=== PATIENT | male | born 1960 | race Caucasian/White ===

== ENCOUNTER 2016-09-10 08:04 | Day surgery (SDC) | payer BC ==
[~2016-09-10 08:04] MED LIST: Buffered Lidocaine 1% SYR 3ML* 3 ML/SYR SYRINGE INTRADERM ONE; Famotidine IV* 10 MG/ML 2 ML (20 mg) IV ONE; Morphine INJ* 2 MG/ML 1 ML CARPUJECT IV PRN; PROCHLORPERAZINE INJ 5 MG/ML 2 ML VIAL IV PRN; fentaNYL* 50 MCG/ML 2 ML VIAL (100 MCG VIAL) IV PRN; oxyCODONE/Acetamin 5/325 MG* TAB PO PRN
[2016-09-10] MEDS ORDERED: KETAMINE HCL* 50 MG/ML 10 ML VIAL ONE (08:53)
[2016-09-10] MEDS ORDERED: Midazolam* 1 MG/ML 5 ML VIAL (5 MG) ONE (08:53)
[2016-09-10] MEDS ORDERED: fentaNYL* 50 MCG/ML 2 ML VIAL (100 MCG VIAL) ONE (08:53)
[2016-09-10] MEDS ORDERED: Bupivacaine 0.25% SDV* 30 ML ONE (09:34)
[2016-09-10] MEDS ORDERED: Dexamethasone IV* 4 MG/ML 1 ML (4 MG) ONE (10:03)
[2016-09-10] MEDS ORDERED: Propofol* 10 MG/ML 20 ML BTL IV PUSH ONE (10:03)
[2016-09-10] MEDS ORDERED: Lidocaine 2% PF * 5 ML VIAL ONE (10:03)
[2016-09-10 10:51] VITALS: BP 125/70
[2016-09-10] MEDS ORDERED: Morphine INJ* 10 MG/ML 1 ML CARPUJECT ONE (11:08)
--- NOTE | 2016-09-11 01:43 | OP ---
DATE OF ADMISSION: 09/10/16 [facility] DATE OF : 56 SURGEON: Zhang Irvin MD. EQUIPMENT ASSOCIATE: CLINT Hallman. ANESTHESIOLOGIST: Dr. Gonzales. ANESTHESIA: Local, MAC. PRE-OP DIAGNOSIS: Right carpal tunnel syndrome. POST-OP DIAGNOSIS: Right carpal tunnel syndrome. OPERATIVE PROCEDURE: Right open carpal tunnel release. INDICATIONS: Cuong is a 56-year-old male. I had done his left side about 4 months ago and that has done very well. We talked about risks and benefits and he wished to proceed with right open carpal tunnel release. EBL: 5 mL. COMPLICATIONS: None. FINDINGS: As expected. DESCRIPTION OF PROCEDURE: Cuong was seen in the preoperative holding area and the correct side, site, and procedure were identified. We came back to the operating room where he got some anesthesia and then I injected the operative area with 0.25% Marcaine. The arm was prepped and draped in the usual fashion. A time-out was performed. The arm was exsanguinated and the tourniquet inflated to 150 mmHg. I then used the 15 blade to make a longitudinal incision about 2 to 3 cm in length along the standard location of the carpal tunnel release incision. Dissection was carried down sharply through the subcutaneous tissue and palmar fascia. I then used the tenotomy scissors to create a subcutaneous tunnel superficial to the distal antebrachial fascia just ulnar to the palmaris longus tendon. I then used the 15 blade to release the transverse carpal ligament just off the radial aspect of the hook of the hamate. This was done from distal to proximal. When I got to the level of the proximal aspect of the incision, I placed a skin retractor and retracted the skin and subcutaneous tissues superficially. I then used the tenotomy scissors to release the rest of the ligament and the distal antebrachial fascia to the level of about 4 or 5 cm proximal to the volar wrist flexion crease. I then checked the decompression proximally and distally. Everything looked very nice and decompressed. There were a few fibers distally that I clipped with the tenotomy scissors and everything was wide open. At this point, I then irrigated the wound and the skin was closed with some 4-0 nylon suture. The wound was dressed with Xeroform, 4 x 4's, sterile Webril, and an [place] wrap. He was then woken up and taken to the recovery room in stable condition [id number]/[facility] #: [id number] JESSICA
== END 2016-09-10 11:00 | disposition home or self-care (01) ==
LOC: OREAST 08:04
PROVIDERS: ATTEND Orthopaedic Surgery Hand Surgery
DX: G56.01 Carpal tunnel syndrome, right upper limb (principal); Z87.891 Personal history of nicotine dependence
CPT/HCPCS: J1100; J2250; J2270; J2704; J3010

== ENCOUNTER 2017-03-19 05:46 | Day surgery (SDC) | payer BC ==
--- NOTE | 2017-03-08 12:46 | HP ---
HISTORY AND PHYSICAL: DATE OF SURGERY: 03/19/17 DATE OF OFFICE VISIT: 03/06/17 SURGEON: Michelle Cates MD* (DICTATED BY CLINT DOHERTY) PROCEDURE: Right knee arthroscopy with partial medial meniscectomy, possible chondroplasty, possible synovectomy. CHIEF COMPLAINT: Right knee pain. HISTORY OF PRESENT ILLNESS: Mr. Tillman is a 56-year-old gentleman with complaints of right knee pain secondary to medial meniscus tear. He has failed conservative treatment. He has elected to proceed with right knee arthroscopy with partial medial meniscectomy. The surgery is scheduled for 03/19/17. PAST MEDICAL HISTORY: Psoriasis. PAST SURGICAL HISTORY: Ganglion cyst removal, bilateral carpal tunnel release, 5 hernia repairs, left testicle removal, cryoablation of the genitofemoral nerve , appendectomy, vasectomy. CURRENT MEDICATIONS: 1. Trazodone. 2. [place]. 3. Motrin. 4. Fluocinonide. 5. Clomid. 6. Tylenol. 7. Multivitamin. 8. Glucosamine. 9. Fish oil bases. ALLERGIES: NIACIN. FAMILY HISTORY: Cancer, diabetes, heart disease. SOCIAL HISTORY: A 56-year-old gentleman lives with his . He does not smoke , use drugs or alcohol. REVIEW OF SYSTEMS: A complete 14-point review of systems was reviewed with the patient and was positive for history of hepatitis C in the past. He was treated with interferon, he has been negative for 10 years. He denies any anesthesia problems, history of DVT, or PE. PHYSICAL EXAMINATION GENERAL: Well developed, well nourished, in no acute distress. VITAL SIGNS: He stands 5 feet 9 inches tall, weighs 195 pounds. Blood pressure 130/74, heart rate 74. HEENT: Normocephalic, atraumatic. NECK: Supple. No palpable lymph nodes. PULMONARY: Lungs are clear to auscultation bilaterally. CARDIAC: Regular rate and rhythm. ABDOMEN: Soft, nontender, and nondistended. MUSCULOSKELETAL: Right lower extremity, the skin is intact. There are no open wounds or abrasions. He has some tenderness over the medial joint line. Full range of motion of the right knee, 2+ dorsalis pedis pulses and intact sensation. NEUROLOGIC: Alert and oriented x3. Cranial nerves II through XII are intact. ASSESSMENT AND PLAN: Mr. Tillman is a 56-year-old gentleman who complains of right knee pain. He has failed conservative management. He has elected to proceed with right knee arthroscopy with partial medial meniscectomy, possible chondroplasty, possible synovectomy. The surgery scheduled for 03/19/[address] Cates discussed the risks and benefits of the surgery at today' s visit and all of his questions were answered. He will follow up 10 to 14 days after the surgery. CLINT DOHERTY [id number]/[facility] #: [id number] JESSICA
[~2017-03-19 05:46] MED LIST changes: +Buffered Lidocaine 0.9% SYRIN* 5 ML/SYR SYRINGE INTRADERM ONE; -Buffered Lidocaine 1% SYR 3ML* 3 ML/SYR SYRINGE INTRADERM ONE; -Famotidine IV* 10 MG/ML 2 ML (20 mg) IV ONE; -Morphine INJ* 2 MG/ML 1 ML CARPUJECT IV PRN; -PROCHLORPERAZINE INJ 5 MG/ML 2 ML VIAL IV PRN; -fentaNYL* 50 MCG/ML 2 ML VIAL (100 MCG VIAL) IV PRN; -oxyCODONE/Acetamin 5/325 MG* TAB PO PRN
[2017-03-19] MEDS ORDERED: ceFAZolin 2 GM PREMIX (*) 50 ML IVPB ONE (05:55)
[2017-03-19] MEDS ORDERED: Buffered Lidocaine 0.9% SYRIN* 5 ML/SYR SYRINGE ONE (05:55)
[2017-03-19] MEDS ORDERED: Famotidine IV* 10 MG/ML 2 ML (20 mg) ONE (05:55)
[2017-03-19] MEDS ORDERED: Famotidine IV* 10 MG/ML 2 ML (20 mg) IV ONE (06:00)
[2017-03-19] MEDS ORDERED: Bupivacaine 0.5% SDV PF* 30 ML VIAL ONE (06:48)
[2017-03-19] MEDS ORDERED: methylPREDNISolone ACETATE 80* 80 MG/ML 1 ML VIAL ONE (06:48)
[2017-03-19] MEDS ORDERED: EPINEPHrine AMP 1 MG/ML ONE (06:48)
[2017-03-19] MEDS ORDERED: Propofol* 10 MG/ML 20 ML BTL IV PUSH ONE (07:19)
[2017-03-19] MEDS ORDERED: Midazolam* 1 MG/ML 5 ML VIAL (5 MG) ONE (07:19)
[2017-03-19] MEDS ORDERED: fentaNYL* 50 MCG/ML 2 ML VIAL (100 MCG VIAL) ONE (07:19)
[2017-03-19] MEDS ORDERED: Ketorolac INJ* 30 MG/ML 1 ML VIAL ONE (07:19)
[2017-03-19] MEDS ORDERED: Lidocaine 2% PF * 5 ML VIAL ONE (07:19)
[2017-03-19] MEDS ORDERED: Ondansetron INJ* 2 MG/ML VIAL ONE (07:19)
[2017-03-19] MEDS ORDERED: DiMENhydriNATE IV* 50 MG/ML VIAL IV PUSH PRN (07:53)
[2017-03-19] MEDS ORDERED: Acetaminophen TAB* 325 MG PO PRN (07:53)
[2017-03-19] MEDS ORDERED: HYDROmorphone INJ* 1 MG/ML CARPUJECT SYRINGE ONE ×2 (08:34→09:29)
[2017-03-19] MEDS ORDERED: oxyCODONE TAB* 5 MG TAB ONE ×2 (08:34→08:49)
[2017-03-19] MEDS ORDERED: Acetaminophen TAB* 325 MG ONE (08:35)
[2017-03-19] MEDS: HYDROmorphone INJ* 1 MG/ML CARPUJECT SYRINGE IV PRN ×5 (08:36→09:08)
[2017-03-19] MEDS: oxyCODONE TAB* 5 MG TAB PO PRN ×2 (08:37→08:49)
[2017-03-19] MEDS ORDERED: HYDROmorphone INJ* 1 MG/ML CARPUJECT SYRINGE IV SLOW PU PRN (09:11)
[2017-03-19 10:03] VITALS: BP 111/84
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
== END 2017-03-19 10:24 | disposition home or self-care (01) ==
LOC: OR 05:46
PROVIDERS: ATTEND Orthopaedic Surgery Adult Reconstructive Orthopaedic Surgery
DX: M23.203 Derangement of unspecified medial meniscus due to old tear or injury, right knee (principal); M67.51 Plica syndrome, right knee; M17.9 Osteoarthritis of knee, unspecified; Z87.891 Personal history of nicotine dependence
CPT/HCPCS: A9270-GY; J0171; J0690; J1040; J1170; J1885; J2250; J2405; J2704; J3010

== ENCOUNTER 2017-05-11 10:01 | Emergency (ER) | payer BC | END 2017-05-11 11:13 | disposition left against medical advice (07) | LOC: UCCORT 10:01 | DX: H57.8 Other specified disorders of eye and adnexa (principal); Z53.21 Procedure and treatment not carried out due to patient leaving prior to being seen by health care provider ==

== ENCOUNTER 2017-05-12 10:11 | Emergency (ER) | payer BC ==
[2017-05-12 12:02] VITALS: BP 138/66
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
== END 2017-05-12 12:31 | disposition home or self-care (01) ==
LOC: UCCORT 10:11
DX: H05.012 Cellulitis of left orbit (principal); Z87.891 Personal history of nicotine dependence
CPT/HCPCS: 99212; G0463

== ENCOUNTER 2017-07-15 10:36 | Day surgery (SDC) | payer BC ==
[~2017-07-15 10:36] MED LIST changes: +Bupivacaine 0.25% SDV* 30 ML ONE
[2017-07-15] MEDS ORDERED: Midazolam* 1 MG/ML 10 ML VIAL (10 MG) ONE (11:50)
[2017-07-15] MEDS ORDERED: fentaNYL* 50 MCG/ML 2 ML VIAL (100 MCG VIAL) ONE ×2 (12:01→12:18)
[2017-07-15] MEDS ORDERED: Ketorolac INJ* 30 MG/ML 1 ML VIAL ONE (12:21)
[2017-07-15] MEDS ORDERED: oxyCODONE TAB* 5 MG TAB PO PRN (12:24)
[2017-07-15] MEDS ORDERED: HYDROcodone/ACETAMIN 5-325 MG* 1 TAB PO PRN (12:24)
[2017-07-15] MEDS ORDERED: Ondansetron INJ* 2 MG/ML VIAL IV PRN (12:24)
[2017-07-15] MEDS ORDERED: Naloxone* 0.4 MG/ML 1 ML VIAL IV PRN (12:24)
[2017-07-15 13:10] VITALS: BP 119/76
--- NOTE | 2017-07-16 14:56 | OP ---
DATE OF OPERATION: 07/15/17 - [facility] DATE OF : 56 SURGEON: Zhang Irvin MD SET UP / OPERATOR: CLINT Leal ANESTHESIOLOGIST: Dr. Kendrick. ANESTHESIA: Local MAC. PRE-OP DIAGNOSIS: Right trigger thumb with large A1 andreea tendon sheath nodule. POST-OP DIAGNOSIS: Right trigger thumb with large A1 andreea tendon sheath nodule. OPERATIVE PROCEDURE: 1. Release of right trigger thumb A1 andreea. 2. Excision of right thumb A1 andreea tendon sheath mass. INDICATIONS: Cuong has had really severe trigger thumb. I had injected it, it did not get completely better, although it did improve. I had talked about risks and benefits. He wanted to have the surgery performed. ESTIMATED BLOOD LOSS: 2 mL. COMPLICATIONS: None. FINDINGS: Large nodular mass coming off of the A1 andreea. DESCRIPTION OF PROCEDURE: Cuong was seen in the preoperative holding area. The correct side, site and procedure were identified. We came back to the operating room. He got anesthesia and I infiltrated the operative area with 0.25% plain Marcaine. The arm was then prepped and draped in the usual fashion and a time-out performed. I made a 1 cm transverse incision in the MP joint flexion crease. Dissection was carried down bluntly. The digital nerves were retracted. The lesion on the tendon sheath was quite large and very visible protruding out from the A1 andreea. This was ellipsed out with a knife and handed off as a specimen. At this point, the thumb was still triggering when I took the knife and I released the remainder of the A1 andreea longitudinally. The release was continued distally and proximally with the tenotomy scissors, taking great care to protect the digital nerves. Once the release was completed, Cuong was awake enough that I had him flex and extend the IP joint multiple times. There was absolutely no triggering. We irrigated out the wound. Skin was closed with 4- 0 nylon suture. Wound was dressed with Xeroform, 4x4s, sterile Webril, and an [place] wrap. Tourniquet was deflated, the hand pinked up immediately. He was taken to the recovery room in stable condition. [id number]/[facility] #: [id number] [facility]
== END 2017-07-15 13:26 | disposition home or self-care (01) ==
LOC: OR 10:36
PROVIDERS: ATTEND Orthopaedic Surgery Hand Surgery
DX: M65.311 Trigger thumb, right thumb (principal); M67.441 Ganglion, right hand; B19.20 Unspecified viral hepatitis C without hepatic coma; F10.20 Alcohol dependence, uncomplicated; F19.10 Other psychoactive substance abuse, uncomplicated
CPT/HCPCS: 88304; J1885; J2250; J3010

== ENCOUNTER 2017-08-10 14:54 | Emergency (ER) | payer BC ==
--- OUTSIDE RECORDS SUMMARY | 2017-08-10 15:34 | XMS REPORT ---
:1960 External Reference #:[id number] Author Organization [facility] Address [address] [address] Phone [phone] Care Team Providers Name Role Phone Shira Jenkins MD Primary Care Physician Unavailable Payers Type Date Identification Numbers Payment Provider Subscriber Commercial Effective: Policy Number: LIBRA Heraclio Zhu 2013 [id number] PayID: [id number] [place] [id number] [place] [address] Medigap Part B Effective: 2010 Policy Number: LIBRA Heraclio Zhu [id number] Expires: 2011 PayID: [id number] [place] [id number] [place] [address] Medigap Part B Expires: 2010 Policy Number: Dirk Andrews Ppanne marie Zhu [id number] PayID: [id number] [facility] [address] [place] [address] Problems Date Description Provider Status Onset: 05/26/2010 Psoriasis Shira Jenkins M.D. Active Onset: 05/16/2016 Ganglion of hand Zhang Irvin MD Active Onset: 05/16/2016 Carpal tunnel syndrome of left wrist Zhang Irvin MD Active Onset: 08/21/2016 Bilateral carpal tunnel syndrome Zhang Irvin MD Active Onset: 03/06/2017 Current tear of medial cartilage Michelle Cates M.D. Active AND/OR meniscus of knee Onset: 07/08/2017 Localized, primary osteoarthritis Michelle Cates M.D. Active Onset: 04/30/2017 Snapping thumb syndrome Zhang Irvin MD Active Family History Date Family Member(s) Problem(s) Comments General Diabetes General Cancer General Stroke General Heart Disease Onset: (age 79 Father [place] living at 82, still Years) working : (age 57 Mother due to [place] sudden ; smoker Years) Siblings 3 Second Brother Coronary Artery Disease stents at age 49 (CAD) Paternal Grandfather due to () Pancreatic Cancer Maternal Grandmother due to Heart () - onset age Disease 38, multiple [place], PPM, lived to be 97, breast CA stomach CA Social History Type Date Description Comments Marital Status Lives With Occupation [employer], currently semi retired Cigarette Use Former Cigarette Smoker quit 2012, >30 pack year ETOH Use Has consumed alcohol in the quit in 1986 past Smoking Patient is a former smoker Recreational Drug Use Denies Drug Use 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 Rehab in 2012 Exercise Type/Frequency Exercises regularly Allergies, Adverse Reactions, Alerts Date Description Reaction Status Severity Comments 08/12/2009 Niaspan HIVES active Moderate 07/03/2010 Lanolin severe fatigue active Moderate Medications Medication Date Status Form Strength Qnty SIG Indications Ordering Provider Tramadol 07/15 Active Tablets 37.5-325m 30tab 1-2 tab by Zhang Hydrochloride/Ac /2017 g s mouth every MD Brandee etaminophen 4-6 hours as needed Motrin 07/03 Active Tablets 200mg taking 6-8 per day Alix Jenkins Tylenol Active Tablets 325mg prn Unknown / Clomid Active Tablets 50mg 1/2 tablet Joe, / daily MD Rolan Fluocinonide Active Cream 0.05% 30uni twice a day Unknown ts as needed rash Prilosec OTC 05/13 Hx Tablets 20mg 1 by mouth every day Paige Jenkins M.D. 06/24 Ventolin HFA 04/25 Hx Aerosol 108(90Bas 24gm 1 to 2 e) inhalations Varn, N.P. - mcg/Act every 4 06/24 hours needed Medrol 04/25 Hx TBPK 4mg 21uni 6 by mouth ts day 1, 5 by Varn, N.P. - mouth day 2, 05/01 4 by mouth /2016 day 3, 3 by mouth day 4, 2 by mouth day 5, 1 by mouth day 6 Oxycodone-Acetam 03/19 Hx Tablets 5-325mg 30tab 1 tabs by Michelle jeffreyphen s mouth every Darryn, - 4 hours as M.D. 05/12 needed for pain Hydrocodone-Acet 02/22 Hx Tablets 5-325mg 30tab 1-2 by mouth M25.561 Shira aminophen s 4 times a Cotton, - day as M.D. 05/12 needed Trazodone HCL 02/22 Hx Tablets 50mg 30tab 1/2-1 tablet M25.561 Shira s once daily Cotton, - at bedtime M.D. 06/27 Tramadol 09/10 Hx Tablets 37.5-325m 22tab take 1 - 2 Zhang Varghese/ g s pills by MD Brandee etaminophen - mouth every 02/19 4 - 6 hours as needed for pain. Ultracet 05/24 Hx Tablets 37.5-325m 10tab 1 - 2 by Zhang g s mouth q4-6hr MD Brandee - as needed 08/20 pain Morphine Sulfate 12/13 Hx Tablets 15mg one every 4 Shira hours Gregory, - M.D. 10/21 Cyclobenzaprine 08/24 Hx Tablets 10mg 30tab 1 tablet Yvonne HCL s three times Ivon, - a day as M.D., FACP 12/11 needed Physical Therapy 08/24 Hx lbp Yvonne Ivon, - M.Akbar, FACP 12/13 Zithromax Z-Vijay 08/21 Hx Tablets 250mg 1Pack two po Shira initially Cotton, - then one po M.D. 08/31 daily Robitussin ac 08/21 Hx Solution 120cc 1 to 2 tsp Shira every 4 Cotton, - hours as M.D. 12/13 needed for cough Dovonex Hx Cream 0.005% 60gm apply to Shira /0000 affected Cotton, - area twice M.D. 09/23 daily Oxycodone HCL Hx Tablets 5mg 50tab 1 Tablet Unknown /0000 s Every 4 - Hours as 07/03 Clonidine HCL Hx Tablets 0.1mg 60tab 1 po bid Unknown /0000 s - 09/23 Serophene Hx Tablets 50mg 1/2 tab Unknown /0000 daily - 11/29 Bactrim Hx Tablets take 1 Unknown /0000 tablet by - mouth bid 06/27 Medications Administered in Office Medication Date Status Form Strength Qnty SIG Indications Ordering Provider Synvisc Or Administered Injection Michelle Synvisc-One Jose Luis Cates M.D. Injection 1 MG Synvisc Or Administered Injection Michelle Synvisc-One Jose Luis Cates M.D. Injection 1 MG Synvisc Or Administered Injection Michelle Synvisc-One 018 Alix Cates Injection 1 MG Celestone 3 mg Administered Injection Zhang and 3mg 017 MD Brandee Celestone 3 mg Administered Injection Urszula and 3mg 011 Marvin schneider M.D. Celestone 3 mg Administered Injection Urszula and 3mg 011 Marvin schneider M.D. Immunizations CPT Code Status Date Vaccine Lot # [id number] Given 02/22/2017 Influenza Virus Vaccine, Quadrivalent, Split, Preservative Free [id number] Given 05/10/2016 Tetanus And Diptheria (Td) For Adult Use [id number] Preservative Free 79706 Given 03/20/2015 Influenza Virus Vaccine, Quadrivalent, Split, Preservative Free [id number] Given 04/07/2014 Afluria Vaccine [id number] Given 04/07/2013 Flu Vaccine Split Virus Preservative Free For [id number] Indiv 3Yr Older 19671 Given 12/14/2011 Zoster (Zostavax) [id number] 34745 Given 06/02/2009 Influenza Virus 3Yrs & Over 28744 Given 06/10/2006 Tdap - Tetanus/Diptheria/Acellular Pertussis [id number] 09315 Given 06/10/2006 Tdap - Tetanus/Diptheria/Acellular Pertussis 89964 Given 06/10/2006 Influenza Virus 3Yrs & Over 46758 Given 06/10/2006 Influenza Virus 3Yrs & Over Vital Signs Date Vital Result Comment 07/22/2017 Height 69 inches 5'9" Weight 191.00 lb BP Systolic 130 mmHg BP Diastolic 86 mmHg Body Temperature 97.8 F BMI (Body Mass Index) 28.2 kg/m2 07/15/2017 Height 69 inches 5'9" Weight 192.00 lb BP Systolic 110 mmHg BP Diastolic 80 mmHg Body Temperature 97.9 F Pain Level 3 BMI (Body Mass Index) 28.4 kg/m2 07/09/2017 Height 69 inches 5'9" Weight 193.00 lb Heart Rate 56 /min BP Systolic Sitting 126 mmHg BP Diastolic Sitting 76 mmHg Respiratory Rate 12 /min Pain Level 5 BMI (Body Mass Index) 28.5 kg/m2 07/08/2017 Height 69 inches 5'9" Weight 193.00 lb BP Systolic 132 mmHg BP Diastolic 80 mmHg Body Temperature 97.6 F BMI (Body Mass Index) 28.5 kg/m2 06/28/2017 Height 69 inches 5'9" Weight 194.00 lb BP Systolic 138 mmHg BP Diastolic 72 mmHg Body Temperature 97.7 F Pain Level 2 BMI (Body Mass Index) 28.6 kg/m2 05/13/2017 Heart Rate 60 /min BP Systolic 124 mmHg BP Diastolic 66 mmHg Body Temperature 98.6 F O2 % BldC Oximetry 93 % 04/30/2017 Height 69.5 inches 5'9.50" Weight 188.00 lb Heart Rate 76 /min BP Systolic Sitting 118 mmHg BP Diastolic Sitting 74 mmHg Respiratory Rate 16 /min Pain Level 0 no fine moter control BMI (Body Mass Index) 27.4 kg/m2 04/29/2017 Height 69.5 inches 5'9.50" Weight 188.00 lb Heart Rate 50 /min BP Systolic 125 mmHg BP Diastolic 77 mmHg Respiratory Rate 16 /min BMI (Body Mass Index) 27.4 kg/m2 04/25/2017 Weight 188.50 lb Heart Rate 55 /min BP Systolic 110 mmHg BP Diastolic 70 mmHg Body Temperature 98.4 F O2 % BldC Oximetry 97 % 04/03/2017 Height 69.75 inches 5'9.75" Weight 195.00 lb Heart Rate 50 /min BP Systolic 108 mmHg BP Diastolic 67 mmHg Pain Level 3 BMI (Body Mass Index) 28.2 kg/m2 03/29/2017 Height 69.75 inches 5'9.75" Weight 195.00 lb BP Systolic 138 mmHg BP Diastolic 78 mmHg Respiratory Rate 18 /min Body Temperature 97.0 F Pain Level 3 BMI (Body Mass Index) 28.2 kg/m2 03/06/2017 Height 69.75 inches 5'9.75" Weight 195.00 lb BP Systolic 130 mmHg BP Diastolic 74 mmHg Respiratory Rate 18 /min Body Temperature 98.4 F Pain Level 2 BMI (Body Mass Index) 28.2 kg/m2 02/22/2017 Height 69.75 inches 5'9.75" Weight 195.00 lb Heart Rate 72 /min BP Systolic 140 mmHg BP Diastolic 80 mmHg O2 % BldC Oximetry 99 % BMI (Body Mass Index) 28.2 kg/m2 11/09/2016 Height 69.75 inches 5'9.75" Weight 192.25 lb Respiratory Rate 16 /min Body Temperature 98.3 F Pain Level 1 BMI (Body Mass Index) 27.8 kg/m2 10/30/2016 Height 69 inches 5'9" Weight 192.00 lb Heart Rate 63 /min BP Systolic 119 mmHg BP Diastolic 71 mmHg Body Temperature 98.5 F BMI (Body Mass Index) 28.4 kg/m2 10/26/2016 Height 69 inches 5'9" Weight 192.00 lb BP Systolic 123 mmHg BP Diastolic 73 mmHg Respiratory Rate 16 /min Body Temperature 97.9 F Pain Level 6 BMI (Body Mass Index) 28.4 kg/m2 08/21/2016 Height 69 inches 5'9" Weight 197.00 lb Heart Rate 76 /min BP Systolic Sitting 122 mmHg BP Diastolic Sitting 80 mmHg Respiratory Rate 16 /min Pain Level 0 BMI (Body Mass Index) 29.1 kg/m2 06/06/2016 Height 69 inches 5'9" Weight 197.00 lb BMI (Body Mass Index) 29.1 kg/m2 05/16/2016 Height 69 inches 5'9" Weight 197.00 lb Heart Rate 69 /min BP Systolic 124 mmHg BP Diastolic 79 mmHg BMI (Body Mass Index) 29.1 kg/m2 05/10/2016 Height 69 inches 5'9" Weight 203.00 lb Heart Rate 80 /min BP Systolic Sitting 126 mmHg BP Diastolic Sitting 78 mmHg Respiratory Rate 15 /min Body Temperature 98.2 F O2 % BldC Oximetry 98 % BMI (Body Mass Index) 30.0 kg/m2 05/06/2015 Height 69.25 inches 5'9.25" Weight 194.50 lb Heart Rate 56 /min BP Systolic Sitting 125 mmHg BP Diastolic Sitting 72 mmHg Body Temperature 97.8 F O2 % BldC Oximetry 97 % BMI (Body Mass Index) 28.5 kg/m2 11/29/2014 Weight 192.00 lb Heart Rate 59 /min BP Systolic Sitting 138 mmHg BP Diastolic Sitting 74 mmHg Body Temperature 98.1 F 01/27/2014 Height 69.5 inches 5'9.50" Weight 201.00 lb Heart Rate 68 /min BP Systolic Sitting 104 mmHg BP Diastolic Sitting 68 mmHg Body Temperature 98.2 F BMI (Body Mass Index) 29.3 kg/m2 01/07/2014 Weight 208.50 lb Heart Rate 72 /min BP Systolic Sitting 126 mmHg BP Diastolic Sitting 76 mmHg Body Temperature 96.0 F 09/23/2013 Height 69.5 inches 5'9.50" Weight 207.00 lb Heart Rate 70 /min BP Systolic Sitting 142 mmHg BP Diastolic Sitting 80 mmHg BMI (Body Mass Index) 30.1 kg/m2 10/21/2012 Weight 175.75 lb Heart Rate 64 /min BP Systolic Sitting 140 mmHg BP Diastolic Sitting 60 mmHg 12/14/2011 Height 70 inches 5'10" Weight 175.00 lb Heart Rate 60 /min BP Systolic Sitting 122 mmHg BP Diastolic Sitting 64 mmHg BMI (Body Mass Index) 25.1 kg/m2 12/11/2010 Height 70 inches 5'10" Weight 193.00 lb Heart Rate 76 /min BP Systolic Sitting 130 mmHg BP Diastolic Sitting 78 mmHg BMI (Body Mass Index) 27.7 kg/m2 08/24/2010 Heart Rate 72 /min BP Systolic 128 mmHg BP Diastolic 74 mmHg Body Temperature 98.1 F 08/21/2010 Weight 196.00 lb Heart Rate 72 /min BP Systolic 130 mmHg BP Diastolic 80 mmHg Body Temperature 99.2 F with motrin 07/03/2010 Weight 198.50 lb Heart Rate 64 /min BP Systolic 130 mmHg BP Diastolic 74 mmHg 05/26/2010 Weight 194.75 lb Heart Rate 78 /min BP Systolic 126 mmHg BP Diastolic 90 mmHg Results Test Date Test Result H/L Range Note Laboratory test 07/15/2017 Surgical Pathology SEE RESULT BELOW 1 finding Basic Metabolic Panel 05/29/2017 Sodium 141 mmol/L 133-145 Potassium 4.1 mmol/L 3.5-5.0 Chloride 105 mmol/L 101-111 Co2 Carbon Dioxide 30 mmol/L 22-32 Anion Gap 6 mmol/L 2-11 Glucose 96 mg/dL 70-100 Blood Urea Nitrogen 20 mg/dL 6-24 Creatinine 1.11 mg/dL 0.67-1.17 BUN/Creatinine Ratio 18.0 8-20 Calcium 9.3 mg/dL 8.6-10.3 Egfr Non- 68.0 >60 Egfr 87.5 >60 2 Lipid Profile (Trig/Chol/HDL) 05/29/2017 Triglycerides 85 mg/dL 3 Cholesterol 153 mg/dL 4 HDL Cholesterol 43.2 mg/dL 5 LDL Cholesterol 93 mg/dL 6 Laboratory test finding 05/29/2017 PSA Screening 0.595 ng/mL 0-4.0 7 Laboratory test finding 05/24/2016 Surgical Pathology SEE RESULT BELOW 8, 9 Lipid Profile 05/01/2016 Triglycerides 84 mg/dL 10 (Trig/Chol/HDL) Cholesterol 148 mg/dL 11 HDL Cholesterol 42.8 mg/dL 12 LDL Cholesterol 88 mg/dL 13 Comp Metabolic Panel 05/01/2016 Sodium 138 mmol/L 133-145 Potassium 4.3 mmol/L 3.5-5.0 Chloride 103 mmol/L 101-111 Co2 Carbon Dioxide 30 mmol/L 22-32 Anion Gap 5 mmol/L 2-11 Glucose 89 mg/dL 70-100 Blood Urea Nitrogen 19 mg/dL 6-24 Creatinine 1.17 mg/dL 0.67-1.17 BUN/Creatinine Ratio 16.2 8-20 Calcium 9.2 mg/dL 8.6-10.3 Total Protein 6.8 g/dL 6.4-8.9 Albumin 4.3 g/dL 3.2-5.2 Globulin 2.5 g/dL 2-4 Albumin/Globulin Ratio 1.7 1-3 Total Bilirubin 0.60 mg/dL 0.2-1.0 Alkaline Phosphatase 37 U/L 34-104 Alt 25 U/L 7-52 Ast 34 U/L 13-39 Egfr Non- 64.3 >60 Egfr 82.6 >60 14 Laboratory test finding 04/20/2016 PSA Screening 0.823 ng/mL 0-4.0 15 Laboratory test finding 04/25/2015 Testosterone Total 331.88 ng/dL 240- 950 PSA Diagnostic 1.309 ng/mL 0-4.0 16 Basic Metabolic Panel 04/25/2015 Sodium 139 mmol/L 133-145 Potassium 4.4 mmol/L 3.5-5.0 Chloride 105 mmol/L 101-111 Co2 Carbon Dioxide 28 mmol/L 22-32 Anion Gap 6 mmol/L 2-11 Glucose 89 mg/dL 70-100 Blood Urea Nitrogen 15 mg/dL 6-24 Creatinine 1.11 mg/dL 0.67-1.17 BUN/Creatinine Ratio 13.5 8-20 Calcium 9.1 mg/dL 8.6-10.3 Egfr Non- 68.5 >60 Egfr 88.1 >60 17 CBC No Diff 04/25/2015 White Blood Count 6.4 10^3/uL 4.8-10.8 Red Blood Count 4.78 10^6/uL 4.0-5.4 Hemoglobin 14.6 g/dL 14.0-18.0 Hematocrit 45 % 42-52 Mean Corpuscular Volume 93 fL 80-94 Mean Corpuscular Hemoglobin 31 pg 27-31 Mean Corpuscular HGB Conc 33 g/dL 31-36 Red Cell Distribution Width 13 % 10.5-15 Platelet Count 209 10^3/uL 150-450 Mean Platelet Volume 8 um3 7.4-10.4 Testosterone Free & 04/25/2015 Free Testosterone ng/dl 5.60 ng/dL 0.89-14.17 18 Total Testosterone 467 ng/dL 240-950 19 Lipid Profile (Trig/Chol/HDL) 09/10/2014 Triglycerides 71 mg/dL 20 Cholesterol 140 mg/dL 21 HDL Cholesterol 39.9 mg/dL 22 LDL Cholesterol 86 mg/dL 23 Comp Metabolic Panel 09/10/2014 Sodium 139 mmol/L 133-145 Potassium 4.2 mmol/L 3.5-5.0 Chloride 105 mmol/L 101-111 Co2 Carbon Dioxide 31 mmol/L 22-32 Anion Gap 3 mmol/L 2-11 Glucose 90 mg/dL 70-100 Blood Urea Nitrogen 18 mg/dL 6-24 Creatinine 1.19 mg/dL High 0.67-1.17 BUN/Creatinine Ratio 15.1 8-20 Calcium 9.2 mg/dL 8.6-10.3 Total Protein 6.5 g/dL 6.4-8.9 Albumin 4.4 g/dL 3.2-5.2 Globulin 2.1 g/dL 2-4 Albumin/Globulin Ratio 2.1 1-3 Total Bilirubin 0.60 mg/dL 0.2-1.0 Alkaline Phosphatase 37 U/L 34-104 Alt 20 U/L 7-52 Ast 25 U/L 13-39 Egfr Non- 63.2 >60 Egfr 81.3 >60 24 Laboratory test 09/10/2014 Hepatitis C Rna Undetected IU/mL Undetected 25 finding Quantitative Testosterone Free 09/10/2014 Free Testosterone 8.2 ng/dL 9-30 26 & Total ng/dl Testosterone 454 ng/dL 240-950 27 Laboratory test 04/27/2013 Testosterone 310.1 ng/dL 175-781 finding Laboratory test 01/26/2013 Testosterone 282.7 ng/dL 175-781 finding HIV 1/2 AB Evaluation 10/22/2012 HIV 1 2 Antibody Nonreactive Nonreactive 28 Laboratory test 10/22/2012 Hepatitis A IgM Negative Negative 29 finding Antibody Hepatitis B Core IgM Nonreactive Nonreactive Hepatitis C Rna Quantitative Undetected IU/mL Undetected 30 Comp Metabolic Panel 10/22/2012 Sodium 142 mmol/L 133-145 Potassium 4.2 mmol/L 3.5-5.0 Chloride 106 mmol/L 101-111 Co2 Carbon Dioxide 28.0 mmol/L 22-32 Anion Gap 8.0 mmol/L 2-11 Glucose 86 mg/dL 70-100 Blood Urea Nitrogen 12 mg/dL 6-24 Creatinine 1.10 mg/dL 0.50-1.40 BUN/Creatinine Ratio 10.9 8-20 Calcium 8.8 mg/dL 8.1-9.9 Total Protein 6.4 g/dL 6.2-8.1 Albumin 3.9 g/dL 3.6-5.4 Globulin 2.5 g/dL 2-4 Albumin/Globulin Ratio 1.6 1-3 Total Bilirubin 0.7 mg/dL 0.4-1.5 Alkaline Phosphatase 48 U/L 30-110 Alt 22 U/L 14-54 Ast 25 U/L 12-42 Egfr Non- 69.8 >60 Egfr 89.7 >60 31 Laboratory test finding 10/22/2012 Ferritin 135 ng/mL 24-336 Hepatitis A IgM Antibody Negative Negative 32 Laboratory test 10/22/2012 Testosterone 363.0 ng/dL 175-781 finding Laboratory test 09/08/2012 Testosterone 177.3 ng/dL 175-781 finding Laboratory test 07/09/2012 Hepatitis C Rna Undetected IU/mL Undetected 33 finding Quantitative CBC Auto Diff 07/09/2012 White Blood Count 6.7 10^3/uL 4.8-10.8 Red Blood Count 4.61 10^6/uL 4.0-5.4 Hemoglobin 14.0 g/dL 14.0-18.0 Hematocrit 41 % Low 42-52 Mean Corpuscular Volume 89 fL 80-94 Mean Corpuscular Hemoglobin 30 pg 27-31 Mean Corpuscular HGB Conc 34 g/dL 31-36 Red Cell Distribution Width 13 % 10.5-15 Platelet Count 226 10^3/uL 150-450 Mean Platelet Volume 8 um3 7.4-10.4 Abs Neutrophils 3.8 10^3/uL 1.5-7.7 Abs Lymphocytes 2.1 10^3/uL 1.0-4.8 Abs Monocytes 0.6 10^3/uL 0-0.8 Abs Eosinophils 0.2 10^3/uL 0-0.6 Abs Basophils 0 10^3/uL 0-0.2 Abs Nucleated RBC 0 10^3/uL Granulocyte % 56.9 % 38-83 Lymphocyte % 30.9 % 25-47 Monocyte % 9.0 % 1-9 Eosinophil % 2.5 % 0-6 Basophil % 0.7 % 0-2 Nucleated Red Blood Cells % 0 Comp Metabolic Panel 07/09/2012 Sodium 139 mmol/L 133-145 Potassium 4.1 mmol/L 3.5-5.0 Chloride 101 mmol/L 101-111 Co2 Carbon Dioxide 32.0 mmol/L 22-32 Anion Gap 6.0 mmol/L 2-11 Glucose 88 mg/dL 70-100 Blood Urea Nitrogen 10 mg/dL 6-24 Creatinine 0.90 mg/dL 0.50-1.40 BUN/Creatinine Ratio 11.1 8-20 Calcium 9.1 mg/dL 8.1-9.9 Total Protein 7.2 g/dL 6.2-8.1 Albumin 4.1 g/dL 3.6-5.4 Globulin 3.1 g/dL 2-4 Albumin/Globulin Ratio 1.3 1-3 Total Bilirubin 0.5 mg/dL 0.4-1.5 Alkaline Phosphatase 64 U/L 30-110 Alt 16 U/L 14-54 Ast 23 U/L 12-42 Egfr Non- 87.9 >60 Egfr 113.1 >60 34 Laboratory test finding 07/09/2012 Testosterone 107.8 ng/dL Low 175-781 PSA Diagnostic 0.74 ng/mL 0-4.0 35 Hepatitis Acute Panel 01/29/2012 Hepatitis C Antibody High Reactive Nonreactive 36 Hepatitis A AB Igm Nonreactive Nonreactive Hepatitis B Core Igm Nonreactive Nonreactive Hepatitis B Surface Ag Nonreactive Nonreactive Lipid Profile (Trig/Chol/HDL) 01/29/2012 Triglyceride 84 mg/dL 40-200 Cholesterol 152 mg/dL Less Than 200 37 High Density Lipoprotein 33 mg/dL Low 40-60 38 Cholesterol/HDL Ratio 4.61 AVERAGE 1-4.97 Low Density Lipoprotein 102 mg/dL High Less Than 100 39 Comp Metabolic Panel 01/29/2012 Sodium 139 mmol/L 135-145 Potassium 4.2 mmol/L 3.5-5.0 Chloride 103 mmol/L 101-111 Co2 (Carbon Dioxide) 31.0 mmol/L 22-32 Anion Gap 5.0 mmol/L 2-11 40 Glucose 81 mg/dL 70-100 BUN 10 mg/dL 6-24 Creatinine 1.0 mg/dL 0.50-1.40 One Over Creatinine 1.00 BUN/Creatinine Ratio 10.0 8-20 Calcium 9.5 mg/dL 8.1-9.9 Total Protein 6.4 GM/DL 6.2-8.1 Albumin 4.0 GM/DL 3.6-5.4 Globulin 2.4 GM/DL 2-4 Albumin/Globulin Ratio 1.7 1-3 Bilirubin Total 0.7 mg/dL 0.4-1.5 41 Alkaline Phosphatase 58 U/L 39-117 Alt (SGPT) 17 U/L 17-63 Ast (Sgot) 26 U/L 12-42 eGFR Non- 78.2 > 60 eGFR 100.5 > 60 42 Laboratory test 05/30/2010 Hepatitis C Rna Undetected IU/mL () 43 finding Quant Laboratory test 05/30/2010 PSA,Diagnostic 1.10 NG/ML 0-4 44 finding Vad 05/30/2010 Vad Final NONREACTIVE Nonreactive 45 Laboratory test 05/30/2010 Erythrocyte Sed Rate 4 MM/HR 0-20 finding CBC With Electronic 05/30/2010 White Blood Count 6.0 CUMM 4.8-10.8 Diff Red Cell Count 4.79 CUMM 4.6-6.2 Hemoglobin 15.0 g/dL 14.0-18.0 Hematocrit 43 % 42-52 Mean Corpuscular Volume 90 um3 80-94 Mean Corpuscular Hemoglob 31 pg 27-31 Mean Corpuscular HGB Cone 35 g/dL 32-36 Redcell Distribution WDTH 13 % 10.5-15 Platelet Count 206 CUMM 150-450 Mean Platelet Volume 7.9 um3 7.4-10.4 Gran % 50.2 % 38-83 Lymph % 36.9 % 25-47 Mononuclear % 9.9 % High 1-9 Eosinophil % 2.4 % 0-6 Basophil % 0.6 % 0-2 Abs Lymphs 2.2 1.0-4.8 Abs Mononuclear 0.6 0-0.8 Absolute Neutrophil Count 3.0 1.5-7.7 Abs Eosinophils 0.1 0-0.6 Abs Basophils 0 0-0.2 Laboratory test finding 05/30/2010 TSH 0.64 MIU/ML 0.34-5.60 C Reactive Protein < 0.5 mg/dL Less Than 0.5 Comp Metabolic Panel 05/30/2010 Sodium 139 mmol/L 135-145 Potassium 3.8 mmol/L 3.5-5.0 Chloride 104 mmol/L 101-111 Co2 (Carbon Dioxide) 28.0 mmol/L 22-32 Anion Gap 7.0 mmol/L 2-11 46 Glucose 91 mg/dL 70-100 47 BUN 12 mg/dL 6-24 Creatinine 1.20 mg/dL 0.50-1.40 One Over Creatinine 0.80 BUN/Creatinine Ratio 10.0 8-20 Calcium 9.2 mg/dL 8.1-9.9 Total Protein 6.2 GM/DL 6.2-8.1 Albumin 4.0 GM/DL 3.6-5.4 Globulin 2.2 GM/DL 2-4 Albumin/Globulin Ratio 1.8 1-3 Bilirubin Total 0.9 mg/dL 0.4-1.5 48 Alkaline Phosphatase 49 U/L 39-117 Alt (SGPT) 24 U/L 17-63 Ast (Sgot) 31 U/L 12-42 eGFR Non- 67.8 > 60 eGFR 82.1 > 60 49 1 SEE RESULT BELOW Name: ZOEY ZHU : [address]: Zhang Irvin MD Acct: [id number] Unit: [id number] AGE: 57 Location: [place] Re07/15/17 SEX: M Status: DEP SDC SPEC: [id number] HENRY: 07/15/17- [facility] DR: Zhang rIvin MD REQ: [id number] RECD: 07/15/17 STATUS: SOUT _ ORDERED: LEVEL 3 FINAL DIAGNOSIS Soft tissue, right thumb lesion, excision: -- Nodular tenosynovitis. PRE-OPERATIVE DIAGNOSIS Right thumb tendon sheath mass GROSS DESCRIPTION The specimen is received in formalin labeled, Right Thumb Tendon Sheath Lesion, and consists of a 0.8 x 0.5 x 0.3 cm quintanilla-pink ovoid rubbery fibrous tissue fragment. The specimen is inked, trisected and submitted entirely in one cassette. Signed (signature on file) Wing Zhao MD 1113 END OF REPORT * ML=Testing performed at Main Lab DEPARTMENT OF PATHOLOGY, [address] [place] [address] Wing Zhao M.D. Director [facility] # [id number] 2 Because ethnic data is not always readily available, this report includes an eGFR for both -Americans and non- Americans. The National Kidney Disease Education Program (NKDEP) does not endorse the use of the MDRD equation for patients that are not between the ages of 18 and 70, are , have extremes of body size, muscle mass, or nutritional status, or are non- or non-. According to the National Kidney Foundation, irrespective of diagnosis, the stage of the disease is based on the level of kidney function: Stage Description GFR(mL/min/1.73 m(2)) 1 Kidney damage with normal or decreased GFR 90 2 Kidney damage with mild decrease in GFR 60-89 3 Moderate decrease in GFR 30-59 4 Severe decrease in GFR 15-29 5 Kidney failure <15 (or dialysis) 3 Desirable: <150 Borderline High: 150-199 High: 200-499 Very High: >500 4 Desirable: <200 Borderline High: 200-239 High: >239 5 Low: <40 Desirable: 40-60 High: >60 6 Desirable: <100 Near Optimal: 100-129 Borderline High: 130-159 High: 160-189 Very High: >189 7 Serum levels of PSA measured using the Renu Matthews DXI Hybritech immunoassay should not be interpreted as absolute evidence of the presence or absence of disease. The PSA value should be used in conjunction with other pertinent clinical diagnostic procedures. A PSA value in the range of 0.1 to 0.6 ng/ml is indeterminate if being used as an indicator of recurrent or residual disease. The values obtained with different assay methods or kits cannot be used interchangeably. 8 [id number] SEE RESULT BELOW Name: ZOEY ZHU : [address]: Zhang Irvin MD Acct: [id number] Unit: [id number] AGE: 55 Location: [facility] Re05/24/16 SEX: M Status: REG [facility] SPEC: [id number] HENRY: 05/24/16- [facility] DR: Zhang Irvin MD REQ: [id number] RECD: 05/24/161236 STATUS: SOUT _ ORDERED: LEVEL III COMMENTS: [id number] FINAL DIAGNOSIS Skin, left thenar hand, excision: -- Follicular cyst, infundibular type. PRE-OPERATIVE DIAGNOSIS Left carpal tunnel syndrome, ganglion left hand. GROSS DESCRIPTION The specimen is received in formalin labeled, Left Thenar Superficial Mass, and consists of a 0.3 x 0.3 x 0.2 cm quintanilla-white ovoid nodule. The specimen is inked, bisected and submitted entirely in one cassette. Signed (signature on file) Babs Jensen MD 08/09 1458 END OF REPORT * ML=Testing performed at Main Lab DEPARTMENT OF PATHOLOGY, [address] [place] [address] Wing Zhao M.D. Director [facility] # [id number] 10 Desirable <150 Borderline high 150-199 High 200-499 Very High >500 11 Desirable <200 Borderline high 200-239 High >239 12 Low <40 Desirable: 40-60 High: >60 13 Desirable: <100 mg/dL Near Optimal: 100-129 mg/dL Borderline High: 130-159 mg/dL High: 160-189 mg/dL Very High: >189 mg/dL 14 Because ethnic data is not always readily available, this report includes an eGFR for both -Americans and non- Americans. The National Kidney Disease Education Program (NKDEP) does not endorse the use of the MDRD equation for patients that are not between the ages of 18 and 70, are , have extremes of body size, muscle mass, or nutritional status, or are non- or non-. According to the National Kidney Foundation, irrespective of diagnosis, the stage of the disease is based on the level of kidney function: Stage Description GFR(mL/min/1.73 m(2)) 1 Kidney damage with normal or decreased GFR 90 2 Kidney damage with mild decrease in GFR 60-89 3 Moderate decrease in GFR 30-59 4 Severe decrease in GFR 15-29 5 Kidney failure <15 (or dialysis) 15 Serum levels of PSA measured using the Renu Matthews DXI Hybritech immunoassay should not be interpreted as absolute evidence of the presence or absence of disease. The PSA value should be used in conjunction with other pertinent clinical diagnostic procedures. The values obtained with different assay methods or kits cannot be used interchangeably. 16 Serum levels of PSA measured using the Renu Matthews DXI Hybritech immunoassay should not be interpreted as absolute evidence of the presence or absence of disease. The PSA value should be used in conjunction with other pertinent clinical diagnostic procedures. The values obtained with different assay methods or kits cannot be used interchangeably. 17 Because ethnic data is not always readily available, this report includes an eGFR for both -Americans and non- Americans. The National Kidney Disease Education Program (NKDEP) does not endorse the use of the MDRD equation for patients that are not between the ages of 18 and 70, are , have extremes of body size, muscle mass, or nutritional status, or are non- or non-. According to the National Kidney Foundation, irrespective of diagnosis, the stage of the disease is based on the level of kidney function: Stage Description GFR(mL/min/1.73 m(2)) 1 Kidney damage with normal or decreased GFR 90 2 Kidney damage with mild decrease in GFR 60-89 3 Moderate decrease in GFR 30-59 4 Severe decrease in GFR 15-29 5 Kidney failure <15 (or dialysis) 18 ADDITIONAL INFORMATION Testing performed by [facility]. 19 ADDITIONAL INFORMATION Testing performed by Liquid Chromatography-Tandem Mass Spectrometry (LC-MS/MS). Test Performed by: [place] [address] Housekeeping Worker: Regulo Mercado II, M.D., Ph.D. 20 Desirable <150 Borderline high 150-199 High 200-499 Very High >500 21 Desirable <200 Borderline high 200-239 High >239 22 Low <40 Desirable: 40-60 High: >60 23 Desirable: <100 mg/dL Near Optimal: 100-129 mg/dL Borderline High: 130-159 mg/dL High: 160-189 mg/dL Very High: >189 mg/dL 24 Because ethnic data is not always readily available, this report includes an eGFR for both -Americans and non- Americans. The National Kidney Disease Education Program (NKDEP) does not endorse the use of the MDRD equation for patients that are not between the ages of 18 and 70, are , have extremes of body size, muscle mass, or nutritional status, or are non- or non-. According to the National Kidney Foundation, irrespective of diagnosis, the stage of the disease is based on the level of kidney function: Stage Description GFR(mL/min/1.73 m(2)) 1 Kidney damage with normal or decreased GFR 90 2 Kidney damage with mild decrease in GFR 60-89 3 Moderate decrease in GFR 30-59 4 Severe decrease in GFR 15-29 5 Kidney failure <15 (or dialysis) 25 Result in log IU/mL is Undetected. ADDITIONAL INFORMATION The quantification range of this assay is 15 to 100,000,000 IU/mL (1.18 log to 8.00 log IU/mL). Testing was performed by the LIAM AmpliPrep/LIAM TaqMan HCV Test, version 2.0 ([employer] Test Performed by: [place] [address] Housekeeping Worker: Regulo Mercado II, M.D., Ph.D. 26 ADDITIONAL INFORMATION Testing performed by [facility]. 27 ADDITIONAL INFORMATION Testing performed by Liquid Chromatography-Tandem Mass Spectrometry (LC-MS/MS). Test Performed by: [place] [address] Housekeeping Worker: Regulo Mercado II, M.D., Ph.D. 28 It is recognized that currently available assays for the detection of antibodies to HIV-1 and/or HIV-2 may not detect all infected individuals. HIV antibodies may be undetectable in some stages of the infection and in some clinical conditions. The performance of this assay has not been established for populations of infants or children. Assayed by Chemiluminescence Microparticle Immunoassay on the Siemens Advia Centaur CP. Values obtained with different methods or kits cannot be used interchangeably.The diagnostic specificity of the ADVIA Centaur 1/O/2 Enhanced assay in the low risk population was 99.90% (6052/6058) with a 95% confidence interval of 99.78 to 99.96%. 29 Test Performed by: [place] [address] Housekeeping Worker: Nam Bruno III, M.D. 30 Result in log IU/mL is Undetected. The quantification range of this assay is 43 IU/mL to 69,000,000 IU/mL (1.63 log IU/mL to 7.84 log IU/mL). Testing was performed by the LIAM AmpliPrep/LIAM TaqMan HCV Test ([employer] Test Performed by: [place] [address] Housekeeping Worker: Nam Bruno III, M.D. 31 Because ethnic data is not always readily available, this report includes an eGFR for both -Americans and non- Americans. The National Kidney Disease Education Program (NKDEP) does not endorse the use of the MDRD equation for patients that are not between the ages of 18 and 70, are , have extremes of body size, muscle mass, or nutritional status, or are non- or non-. According to the National Kidney Foundation, irrespective of diagnosis, the stage of the disease is based on the level of kidney function: Stage Description GFR(mL/min/1.73 m(2)) 1 Kidney damage with normal or decreased GFR 90 2 Kidney damage with mild decrease in GFR 60-89 3 Moderate decrease in GFR 30-59 4 Severe decrease in GFR 15-29 5 Kidney failure <15 (or dialysis) 32 Test Performed by: [place] [address] Housekeeping Worker: Nam Bruno III, M.D. 33 Result in log IU/mL is Undetected. The quantification range of this assay is 43 IU/mL to 69,000,000 IU/mL (1.63 log IU/mL to 7.84 log IU/mL). Testing was performed by the LIAM AmpliPrep/LIAM TaqMan HCV Test ([employer] Test Performed by: [place] [address] Housekeeping Worker: Nam Bruno III, M.D. 34 Because ethnic data is not always readily available, this report includes an eGFR for both -Americans and non- Americans. The National Kidney Disease Education Program (NKDEP) does not endorse the use of the MDRD equation for patients that are not between the ages of 18 and 70, are , have extremes of body size, muscle mass, or nutritional status, or are non- or non-. According to the National Kidney Foundation, irrespective of diagnosis, the stage of the disease is based on the level of kidney function: Stage Description GFR(mL/min/1.73 m(2)) 1 Kidney damage with normal or decreased GFR 90 2 Kidney damage with mild decrease in GFR 60-89 3 Moderate decrease in GFR 30-59 4 Severe decrease in GFR 15-29 5 Kidney failure <15 (or dialysis) 35 Serum levels of PSA measured using the Renu [place] REI DXI Hybritech immunoassay should not be interpreted as absolute evidence of the presence or absence of disease. The PSA value should be used in conjunction with other pertinent clinical diagnostic procedures. The values obtained with different assay methods or kits cannot be used interchangeably. 36 High reactive sample are considered positive for HCV. 37 CHOLESTEROL INTERPRETATION: Desirable: Less than 200 MG/DL Borderline-High Risk: 200-239 MG/DL High-Risk: 240 MG/DL and over 38 HDL INTERPRETATION: Undesirable: High Risk: Less than 40 MG/DL Desirable: Low Risk: Greater than 60 MG/DL 39 LDL INTERPRETATION: Low Risk Optimal Level: LDL Less than 100 MG/DL Near or Above Optimal: LDL 100-129 MG/DL Borderline High Risk: LDL 130-159 MG/DL High Risk: LDL 160-189 MG/DL Very High Risk: LDL Greater than 189 MG/DL 40 Anion gap measurement may be of limited value in the presence of any alkalosis, especially in a combined acid base disorder. . 41 A metabolite of Naproxen, O-desmethylnaproxen, has been shown to interfere with the Jendrassik-Cascades method for measuring total bilirubin. Samples from patients who have taken Naproxen have shown spurious elevation in total bilirubin levels. 42 Because ethnic data is not always readily available, this report includes an eGFR for both -Americans and non- Americans. The National Kidney Disease Education Program (NKDEP) does not endorse the use of the MDRD equation for patients that are not between the ages of 18 and 70, are , have extremes of body size, muscle mass, or nutritional status, or are non- or non-. According to the National Kidney Foundation, irrespective of diagnosis, the stage of the disease is based on the level of kidney function: Stage Description GFR(mL/min/1.73 m(2)) 1 Kidney damage with normal or decreased GFR 90 2 Kidney damage with mild decrease in GFR 60-89 3 Moderate decrease in GFR 30-59 4 Severe decrease in GFR 15-29 5 Kidney failure <15 (or dialysis) 43 HCV RNA is not detected. Result in log IU/mL=Undetected Quantification range of this assay is 43 IU/mL to 69,000,000 IU/mL (1.63 to 7.84 log IU/mL). Testing was performed by the LIAM AmpliPrep/LIAM TaqMan HCV Test ([employer] Test Performed by: [facility] [address] [place] [address] Housekeeping Worker: Nam Bruno III, M.D. 44 * SERUM LEVELS OF PSA MEASURED USING THE RENU DEENA ACCESS HYBRITECH IMMUNOASSAY SHOULD NOT BE INTERPRETED ABSOLUTE EVIDENCE OF THE PRESENCE OR ABSENCE OF DISEASE. THE PSA VALUE SHOULD BE USED IN CONJUNCTION WITH OTHER PERTINENT CLINICAL DIAGNOSTIC PROCEDURES. 45 FINAL INTERPRETATION: No HIV antibody is detected. . This information has been disclosed to you from confidential records which are protected by [place] State law. State law prohibits you from making further disclosure of this information without the specific written consent of the person to whom it pertains, or as otherwise permitted by law. Any unauthorized further disclosure in violation of state law may result in a fine or mcc sentence or both. General authorization for the release of medical or other information is not, except in limited circumstances set forth in Part 63, Title 10, of [place]CR[place], sufficient authorization for further disclosure. Disclosure of confidential HIV information that occurs as the result of a general authorization for the release of medical or other information will be in violation of the state law and may result in a fine or a mcc sentence. . 46 Anion gap measurement may be of limited value in the presence of any alkalosis, especially in a combined acid base disorder. . 47 Note change in reference range as of 02/12/08. The change was based on recommendations from the [place] [employer]. 48 A metabolite of Naproxen, O-desmethylnaproxen, has been shown to interfere with the Jendrassik-Cascades method for measuring total bilirubin. Samples from patients who have taken Naproxen have shown spurious elevation in total bilirubin levels. 49 Because ethnic data is not always readily available, this report includes an eGFR for both -Americans and non- Americans. The National Kidney Disease Education Program (NKDEP) does not endorse the use of the MDRD equation for patients that are not between the ages of 18 and 70, are , have extremes of body size, muscle mass, or nutritional status, or are non- or non-. According to the National Kidney Foundation, irrespective of diagnosis, the stage of the disease is based on the level of kidney function: Stage Description GFR(mL/min/1.73 m(2)) 1 Kidney damage with normal or decreased GFR 90 2 Kidney damage with mild decrease in GFR 60-89 3 Moderate decrease in GFR 30-59 4 Severe decrease in GFR 15-29 5 Kidney failure <15 (or dialysis) Procedures Date CPT Code Description Status 07/22/201779934 Inject/Drain Joint/Bursa Major Completed 07/15/201721746 Inject/Drain Joint/Bursa Major Completed 07/08/201748825 Inject/Drain Joint/Bursa Major Completed 04/30/201700644 Aspiration &/Or Inj Of Ganglion Cyst(S) Any Completed Location 04/30/2017 02082 Inject Tendon Sheath Or Ligament Aponeurosis Eg Plantar Completed Fascia 03/19/2017 25640 Arthroscopy,Knee,Meniscectomy Medial Or Lateral Completed 03/19/2017 12816 Arthroscopy,Knee,Meniscectomy Medial Or Lateral Completed 10/30/2016 66480 Short Arm Cast Application Completed 09/10/2016 24186 Carpal Tunnel Release Completed 09/10/2016 40002 Carpal Tunnel Release Completed 05/24/2016 15500 Excision Tumor,Soft Tissue Of Hand Or Finger Subq Completed 05/24/2016 73450 Excision Tumor,Soft Tissue Of Hand Or Finger Subq Completed 05/24/2016 72438 Carpal Tunnel Release Completed 12/15/2014 07692 ECHO Stress Test Incl Perf Contiuous ekg Monitoring Completed W/Phys Superv 10/19/2010 Injection Single Tendon Origin/Insertion Completed 07/12/2010 78029 Rad Exam; Elbow, Comp Completed 07/12/2010 Injection Single Tendon Origin/Insertion Completed 05/26/2010 07438 EKG Tracing & Interpretation Completed 09/01/2009 Colonoscopy Completed 08/17/2008 86552 EKG Tracing & Interpretation Completed Encounters Type Date Location Provider CPT E/M Dx Office Visit 07/09/2017 [place] [address] M65.311 9:15a Of [facility] M67.441 Office Visit 06/28/2017 2:45p [facility] Michelle Cates M.D. 92219 M17.11 C.M.AMely M25.461 M25.561 Office Visit 05/13/2017 11:00a [facility] Internal Medicine Shira Jenkins 35700 Z00.00 - Agustin Thomson Z87.891 Z82.49 Office Visit 04/30/2017 11:30a [facility] [place] [address] M65.311 [facility] M67.441 Office Visit 04/25/2017 9:40a [facility] Internal Medicine Sadaf Chavez N.PMely 48451 M79.641 - Agustin R05 Office Visit 03/06/2017 9:00a [facility] Michelle Cates M.D. 98963 M25.561 [facility] M25.461 M17.11 S83.241A Office Visit 02/22/2017 5:00p [facility] Internal Shira Jenkins 53269 M25.561 Medicine - Agustin Thomson Office Visit 11/09/2016 9:15a [place] [address] S63.501D [facility] Office Visit 10/26/2016 2:00p [place] [address] S63.501A Of C.M.AMely Office Visit 08/21/2016 2:45p [place] [address] G56.03 Of Viviana G56.01 Office Visit 05/16/2016 1:00p [facility] [place] [address] M67.442 Viviana G56.02 Office Visit 05/10/2016 10:40a [facility] Internal Medicine Shiraeddy Jenkins 19335 Z00.00 - [place] M.Akbar M67.442 Z87.891 L40.8 Z23 Office Visit 05/06/2015 10:20a [facility] Internal Medicine Shiraeddy Jenkins 48426 Z00.00 - [place] M.DMely Office Visit 11/29/2014 4:00p [facility] Internal Medicine Shira Jenkins 03359 786.50 - [place] Alix 729.5 793.6 Office Visit 01/27/2014 11:00a [facility] Internal Medicine Shira Jenkins 16019 719.46 - [place] M.DMely Office Visit 01/07/2014 1:20p [facility] Internal Medicine Shira Jenkins 11172 726.19 - [place] Alok.Akbar Office Visit 09/23/2013 1:40p [facility] Internal Medicine Sadaf Chavez, N.P. 76908 V70.0 - [place] 272.4 696.1 304.03 571.40 783.1 257.2 Office Visit 10/21/2012 11:40a [facility] Internal Medicine Sadaf Chavez, N.P. 52543 V73.89 - [place] Office Visit 12/14/2011 3:00p [facility] Internal Medicine Sadaf Chavez, N.P. 63063 V70.0 - [place] 272.4 696.1 V04.89 Office Visit 12/11/2010 1:40p DO Not Use [facility] Chavez, 71060 465.9 N.P. 782.2 V70.0 Office Visit 11/09/2010 3:00p [facility] Lance Howard M.D. 14190 726.32 C.M.AMely Office Visit 10/19/2010 1:45p [facility] [place] 54245 354.2 C.MMina Jacobsen M.D. 726.32 Office Visit 08/24/2010 2:30p DO Not Use [employer]ational [employer] Yvonne Del Valle, 11592 724.1 M.Akbar, FACP 786.2 Office Visit 08/21/2010 2:00p DO Not Use Sadaf Kathy, 26397 466.0 Operational [employer] [facility] N.P. Office Visit 07/12/2010 1:15p [facility] [place] 29900 726.32 Viviana Jacobsen M.D. 354.2 Office Visit 07/03/2010 2:15p DO Not Use Shira Cotton, 31952 729.5 [employer] [facility] M.D. 780.79 Office Visit 05/26/2010 1:15p DO Not Use Shira Cotton, 35704 780.79 Operational Review [facility] M.D. 787.1 272.4 Office Visit 12/30/2009 9:15a DO Not Use [employer] [facility] Sadaf Chavez, 67893 724.1 N.P. Office Visit 08/17/2009 1:45p DO Not Use [employer] Sadaf Chavez, 70549 V70.0 N.P. 272.4 Office Visit 12/02/2008 8:30a DO Not Use Sadaf Kathy, 50721 719.41 Operational Review [facility] N.P. Office Visit 10/11/2008 8:30a DO Not Use RadLila thomosn, 53513 272.4 Operational Review [facility] M.D. 696.1 Office Visit 08/17/2008 1:15p DO Not Use Lila Cardona, 63170 V70.0 Operational Review [facility] M.D. 796.2 272.4 Office Visit 04/20/2008 9:30a DO Not Use Lila Cardona, 74009 V25.09 Operational Review Sergeant[facility] M.D. Office Visit 07/23/2007 3:15p DO Not Use Lila Cardona, 19616 V70.0 Operational Review [facility] M.D. 724.2 Office Visit 02/17/2007 11:45a DO Not Use Lila Cardona, 06276 724.2 Operational Review Sergeant[facility] M.D. Office Visit 08/26/2006 11:30a DO Not Use Lila Cardona, 12606 724.2 Miriam Thomson Office Visit 06/10/2006 1:30p DO Not Use Lila Cardona, 11614 V70.0 Miriam Thomson V04.81 V06.5 Plan of Care Future Appointment(s):10/09/2017 8:45 am - Michelle Cates M.D. at [facility]09/13/2017 8:00 am - Michelle Cates M.D. at [facility]07/23/2017 11:15 am - Zhang Irvin MD at [facility] At Djgemzyu87/27/2018 11:00 am - Shira Jenkins M.D. at [facility] Internal Medicine - Duioutceh08/29/2018 - Michelle Cates M.D.M25.561 Pain in right kneeFollow up:Follow up: 7-10 days before bbuwzhdG93.461 Effusion, right kneeM17.11 Unilateral primary osteoarthritis, right knee
--- OUTSIDE RECORDS SUMMARY | 2017-08-10 15:35 | XMS REPORT ---
:1960 External Reference #:[id number] Author Organization [facility] Address [address] [address] Phone [phone] Care Team Providers Name Role Phone Shira Jenkins MD Primary Care Physician Unavailable Payers Type Date Identification Numbers Payment Provider Subscriber Commercial Effective: Policy Number: LIBRA Heraclio Zhu 2013 [id number] PayID: [id number] [facility] [id number] [address] [place] [address] Medigap Part B Effective: 2010 Policy Number: LIBRA Heraclio Zhu [id number] Expires: 2011 PayID: [id number] [place] [id number] [address] [place] [address] Medigap Part B Expires: 2010 Policy Number: Dirk Andrews Ppanne marie Zhu [id number] PayID: [id number] [facility] [id number] [address] [place] [address] Problems Date Description Provider Status Onset: 05/26/2010 [...] General Heart Disease Onset: (age 79 Father AR living at 82, still Years) working : (age 55 Mother due to AR sudden ; smoker Years) Siblings 3 Second Brother Coronary Artery Disease stents at age 49 (CAD) Paternal Grandfather due to () Pancreatic Cancer Maternal Grandmother due to Heart () - onset age Disease 38, multiple AR, PPM, lived to be 97, breast CA stomach CA Social History Type Date Description Comments Marital Status Lives With Occupation [employer], currently semi retired Cigarette Use [...] Form Strength Qnty SIG Indications Ordering Provider Parviz 07/03 Active Tablets 200mg taking 6-8 per day Alix Jenkins Tylenol Active Tablets 325mg prn Unknown / Clomid Active Tablets 50mg 1/2 tablet Joe, daily MD Rolan Fluocinonide Active Cream 0.05% 30uni twice a day Unknown / ts as needed rash Prilosec OTC 05/13 [...] Tablets 5-325mg 30tab 1 tabs by Michelle gomez s mouth every Darryn, - 4 hours as M.D. 05/12 needed for pain Hydrocodone-Acet 02/22 Hx Tablets 5-325mg 30tab 1-2 by mouth M25.561 Shira aminophen s 4 times a Cotton, - day as M.D. 05/12 needed Trazodone HCL 02/22 Hx Tablets 50mg 30tab 1/2-1 tablet M25.561 Shira /2017 s once daily Cotton, - at bedtime M.D. 06/27 Tramadol 09/10 Hx Tablets 37.5-325m 22tab take 1 - 2 Zhang Hydrochloride/ g s pills by MD Brandee etaminophen - mouth every 02/19 4 - 6 hours as needed for pain. Ultracet 05/24 Hx Tablets 37.5-325m 10tab 1 - 2 by Zhang g s mouth q4-6hr MD Brandee - as needed 08/20 pain Morphine Sulfate 12/13 Hx Tablets 15mg one every 4 Shira hours Cotton, - M.D. 10/21 Cyclobenzaprine 08/24 Hx Tablets 10mg 30tab 1 tablet Yvonne HCL s three times Ivon, - a day as M.D., FACP 12/11 needed Physical Therapy 08/24 Hx lbp Yvonne Ivon, - M.D., FACP 12/13 Zithromax Z-Vijay 08/21 Hx Tablets 250mg 1Pack two po initially Cotton, - then one po M.D. 08/31 Robitussin ac 08/21 Hx Solution 120cc 1 to 2 tsp every 4 Cotton, - hours as M.D. 12/13 needed for cough Dovonex Hx Cream 0.005% 60gm apply to affected Cotton, - area twice M.D. 09/23 Oxycodone HCL Hx Tablets 5mg 50tab 1 Tablet Unknown s Every 4 - Hours as 07/03 Needed Clonidine HCL Hx Tablets 0.1mg 60tab 1 po bid Unknown s - 09/23 Serophene Hx Tablets 50mg 1/2 tab Unknown /0000 daily - 11/29 Bactrim Hx Tablets take 1 Unknown /0000 tablet by - mouth bid 06/27 Medications Administered in Office Medication Date Status Form Strength Qnty SIG Indications Ordering Provider Synvisc Or Administered Injection Michelle Synvisc-One 018 Alix Cates Injection 1 MG Synvisc Or Administered Injection Michelle Synvisc-One 018 Alix Cates Injection 1 MG Celestone 3 mg Administered Injection Zhang and 3mg 017 MD Brandee Celestone 3 mg Administered Injection Urszula and 3mg 011 Marvin schneider M.D. Celestone 3 mg Administered Injection Urszula and 3mg 011 Marvin schneider M.D. Immunizations CPT Code Status Date Vaccine Lot # 23962 Given 02/22/2017 Influenza Virus Vaccine, Quadrivalent, Split, Preservative Free 99981 Given 05/10/2016 Tetanus And Diptheria (Td) For Adult Use [id number] Preservative Free 11441 Given 03/20/2015 Influenza Virus Vaccine, Quadrivalent, Split, Preservative Free [id number] Given 04/07/2014 Afluria Vaccine 85931 Given 04/07/2013 Flu Vaccine Split Virus Preservative Free For [id number] Indiv 3Yr Older 30650 Given 12/14/2011 Zoster (Zostavax) [id number] 47094 Given 06/02/2009 Influenza Virus 3Yrs & Over 10681 Given 06/10/2006 Tdap - Tetanus/Diptheria/Acellular Pertussis [id number] 69839 Given 06/10/2006 Tdap - Tetanus/Diptheria/Acellular Pertussis 76760 Given 06/10/2006 Influenza Virus 3Yrs & Over 85387 Given 06/10/2006 Influenza Virus 3Yrs & Over Vital Signs Date Vital Result Comment 07/15/2017 Height 69 inches 5'9" Weight 192.00 [...] Test Date Test Result H/L Range Note Basic Metabolic Panel 05/29/2017 Sodium 141 mmol/L 133-145 Potassium 4.1 mmol/L 3.5-5.0 Chloride 105 mmol/L 101-111 Co2 Carbon Dioxide 30 mmol/L 22-32 Anion Gap 6 mmol/L 2-11 Glucose 96 mg/dL 70-100 Blood Urea Nitrogen 20 mg/dL 6-24 Creatinine 1.11 mg/dL 0.67-1.17 BUN/Creatinine Ratio 18.0 8-20 Calcium 9.3 mg/dL 8.6-10.3 Egfr Non- 68.0 >60 Egfr 87.5 >60 1 Lipid Profile (Trig/Chol/HDL) 05/29/2017 Triglycerides 85 mg/dL 2 Cholesterol 153 mg/dL 3 HDL Cholesterol 43.2 mg/dL 4 LDL Cholesterol 93 mg/dL 5 Laboratory test finding 05/29/2017 PSA Screening 0.595 ng/mL 0-4.0 6 Laboratory test finding 05/24/2016 Surgical Pathology SEE RESULT BELOW 7, 8 Lipid Profile 05/01/2016 Triglycerides 84 mg/dL 9 (Trig/Chol/HDL) Cholesterol 148 mg/dL 10 HDL Cholesterol 42.8 mg/dL 11 LDL Cholesterol 88 mg/dL 12 Comp Metabolic Panel 05/01/2016 Sodium 138 mmol/L [...] Egfr Non- 64.3 >60 Egfr 82.6 >60 13 Laboratory test finding 04/20/2016 PSA Screening 0.823 ng/mL 0-4.0 14 Laboratory test finding 04/25/2015 Testosterone Total 331.88 ng/dL 240- 950 PSA Diagnostic 1.309 ng/mL 0-4.0 15 Basic Metabolic Panel 04/25/2015 Sodium 139 mmol/L 133-145 Potassium 4.4 mmol/L 3.5-5.0 Chloride 105 mmol/L 101-111 Co2 Carbon Dioxide 28 mmol/L 22-32 Anion Gap 6 mmol/L 2-11 Glucose 89 mg/dL 70-100 Blood Urea Nitrogen 15 mg/dL 6-24 Creatinine 1.11 mg/dL 0.67-1.17 BUN/Creatinine Ratio 13.5 8-20 Calcium 9.1 mg/dL 8.6-10.3 Egfr Non- 68.5 >60 Egfr 88.1 >60 16 CBC No Diff 04/25/2015 White Blood Count [...] 04/25/2015 Free Testosterone ng/dl 5.60 ng/dL 0.89-14.17 17 Total Testosterone 467 ng/dL 240-950 18 Lipid Profile (Trig/Chol/HDL) 09/10/2014 Triglycerides 71 mg/dL 19 Cholesterol 140 mg/dL 20 HDL Cholesterol 39.9 mg/dL 21 LDL Cholesterol 86 mg/dL 22 Comp Metabolic Panel 09/10/2014 Sodium 139 mmol/L [...] Egfr Non- 63.2 >60 Egfr 81.3 >60 23 Laboratory test 09/10/2014 Hepatitis C Rna Undetected IU/mL Undetected 24 finding Quantitative Testosterone Free 09/10/2014 Free Testosterone 8.2 ng/dL 9-30 25 & Total ng/dl Testosterone 454 ng/dL 240-950 26 Laboratory test 04/27/2013 Testosterone 310.1 ng/dL 175-781 finding Laboratory test 01/26/2013 Testosterone 282.7 ng/dL 175-781 finding HIV 1/2 AB Evaluation 10/22/2012 HIV 1 2 Antibody Nonreactive Nonreactive 27 Laboratory test 10/22/2012 Hepatitis A IgM Negative Negative 28 finding Antibody Hepatitis B Core IgM Nonreactive Nonreactive Hepatitis C Rna Quantitative Undetected IU/mL Undetected 29 Comp Metabolic Panel 10/22/2012 Sodium 142 mmol/L [...] Egfr Non- 69.8 >60 Egfr 89.7 >60 30 Laboratory test finding 10/22/2012 Ferritin 135 ng/mL 24-336 Hepatitis A IgM Antibody Negative Negative 31 Laboratory test 10/22/2012 Testosterone 363.0 ng/dL 175-781 finding Laboratory test 09/08/2012 Testosterone 177.3 ng/dL 175-781 finding Laboratory test 07/09/2012 Hepatitis C Rna Undetected IU/mL Undetected 32 finding Quantitative CBC Auto Diff 07/09/2012 White [...] Egfr Non- 87.9 >60 Egfr 113.1 >60 33 Laboratory test finding 07/09/2012 Testosterone 107.8 ng/dL Low 175-781 PSA Diagnostic 0.74 ng/mL 0-4.0 34 Hepatitis Acute Panel 01/29/2012 Hepatitis C Antibody High Reactive Nonreactive 35 Hepatitis A AB Igm Nonreactive Nonreactive Hepatitis B Core Igm Nonreactive Nonreactive Hepatitis B Surface Ag Nonreactive Nonreactive Lipid Profile (Trig/Chol/HDL) 01/29/2012 Triglyceride 84 mg/dL 40-200 Cholesterol 152 mg/dL Less Than 200 36 High Density Lipoprotein 33 mg/dL Low 40-60 37 Cholesterol/HDL Ratio 4.61 AVERAGE 1-4.97 Low Density Lipoprotein 102 mg/dL High Less Than 100 38 Comp Metabolic Panel 01/29/2012 Sodium 139 mmol/L 135-145 Potassium 4.2 mmol/L 3.5-5.0 Chloride 103 mmol/L 101-111 Co2 (Carbon Dioxide) 31.0 mmol/L 22-32 Anion Gap 5.0 mmol/L 2-11 39 Glucose 81 mg/dL 70-100 BUN 10 mg/dL 6-24 Creatinine 1.0 mg/dL 0.50-1.40 One Over Creatinine 1.00 BUN/Creatinine Ratio 10.0 8-20 Calcium 9.5 mg/dL 8.1-9.9 Total Protein 6.4 GM/DL 6.2-8.1 Albumin 4.0 GM/DL 3.6-5.4 Globulin 2.4 GM/DL 2-4 Albumin/Globulin Ratio 1.7 1-3 Bilirubin Total 0.7 mg/dL 0.4-1.5 40 Alkaline Phosphatase 58 U/L 39-117 Alt (SGPT) 17 U/L 17-63 Ast (Sgot) 26 U/L 12-42 eGFR Non- 78.2 > 60 eGFR 100.5 > 60 41 Laboratory test 05/30/2010 Hepatitis C Rna Undetected IU/mL () 42 finding Quant Laboratory test 05/30/2010 PSA,Diagnostic 1.10 NG/ML 0-4 43 finding Vad 05/30/2010 Vad Final NONREACTIVE Nonreactive 44 Laboratory test 05/30/2010 Erythrocyte Sed Rate 4 [...] mmol/L 22-32 Anion Gap 7.0 mmol/L 2-11 45 Glucose 91 mg/dL 70-100 46 BUN 12 mg/dL 6-24 Creatinine 1.20 mg/dL 0.50-1.40 One Over Creatinine 0.80 BUN/Creatinine Ratio 10.0 8-20 Calcium 9.2 mg/dL 8.1-9.9 Total Protein 6.2 GM/DL 6.2-8.1 Albumin 4.0 GM/DL 3.6-5.4 Globulin 2.2 GM/DL 2-4 Albumin/Globulin Ratio 1.8 1-3 Bilirubin Total 0.9 mg/dL 0.4-1.5 47 Alkaline Phosphatase 49 U/L 39-117 Alt (SGPT) 24 U/L 17-63 Ast (Sgot) 31 U/L 12-42 eGFR Non- 67.8 > 60 eGFR 82.1 > 60 48 1 Because ethnic data is not always readily [...] 15-29 5 Kidney failure <15 (or dialysis) 2 Desirable: <150 Borderline High: 150-199 High: 200-499 Very High: >500 3 Desirable: <200 Borderline High: 200-239 High: >239 4 Low: <40 Desirable: 40-60 High: >60 5 Desirable: <100 Near Optimal: 100-129 Borderline High: 130-159 High: 160-189 Very High: >189 6 Serum levels of PSA measured using the [employer] DXI Hybritech immunoassay should not be interpreted [...] methods or kits cannot be used interchangeably. 7 [id number] SEE RESULT BELOW Name: ZOEY ZHU : [address]: Zhang Irvin MD Acct: [id number] Unit: [id number] AGE: 55 Location: [facility] Re05/24/16 SEX: M Status: REG [facility] [place] SPEC: [id number] HENRY: 05/24/16- SUBM DR: Zhang Irvin MD REQ: [id number] RECD: 05/24/16 STATUS: SOUT _ ORDERED: LEVEL III COMMENTS: [id number] FINAL DIAGNOSIS Skin, left thenar hand, excision: [...] performed at Main Lab DEPARTMENT OF PATHOLOGY, [address] [place] [address] Wing Zhao M.D. Director [facility] # [id number] 9 Desirable <150 Borderline high 150-199 High 200-499 Very High >500 10 Desirable <200 Borderline high 200-239 High >239 11 Low <40 Desirable: 40-60 High: >60 12 Desirable: <100 mg/dL Near Optimal: 100-129 mg/dL Borderline High: 130-159 mg/dL High: 160-189 mg/dL Very High: >189 mg/dL 13 Because ethnic data is not always readily [...] 15-29 5 Kidney failure <15 (or dialysis) 14 Serum levels of PSA measured using the [employer] DXI Hybritech immunoassay should not be interpreted as absolute evidence of the presence or absence of disease. The PSA value should be used in conjunction with other pertinent clinical diagnostic procedures. The values obtained with different assay methods or kits cannot be used interchangeably. 15 Serum levels of PSA measured using the [employer] DXI Hybritech immunoassay should not be interpreted as absolute evidence of the presence or absence of disease. The PSA value should be used in conjunction with other pertinent clinical diagnostic procedures. The values obtained with different assay methods or kits cannot be used interchangeably. 16 Because ethnic data is not always readily [...] 15-29 5 Kidney failure <15 (or dialysis) 17 ADDITIONAL INFORMATION Testing performed by [facility]. 18 ADDITIONAL INFORMATION Testing performed by Liquid Chromatography-Tandem Mass Spectrometry (LC-MS/MS). Test Performed by: [address] [address] Medical Care Administrator: Regulo Mercado II, M.D., Ph.D. 19 Desirable <150 Borderline high 150-199 High 200-499 Very High >500 20 Desirable <200 Borderline high 200-239 High >239 21 Low <40 Desirable: 40-60 High: >60 22 Desirable: <100 mg/dL Near Optimal: 100-129 mg/dL Borderline High: 130-159 mg/dL High: 160-189 mg/dL Very High: >189 mg/dL 23 Because ethnic data is not always readily [...] 15-29 5 Kidney failure <15 (or dialysis) 24 Result in log IU/mL is Undetected. ADDITIONAL INFORMATION The quantification range of this assay is 15 to 100,000,000 IU/mL (1.18 log to 8.00 log IU/mL). Testing was performed by the LIAM AmpliPrep/LIAM TaqMan HCV Test, version 2.0 ([employer] Test Performed by: [place] [address] Medical Care Administrator: Regulo Mercado II, M.D., Ph.D. 25 ADDITIONAL INFORMATION Testing performed by [facility]. 26 ADDITIONAL INFORMATION Testing performed by Liquid Chromatography-Tandem Mass Spectrometry (LC-MS/MS). Test Performed by: [place] [address] Medical Care Administrator: Regulo Mercado II, M.D., Ph.D. 27 It is recognized that currently available assays [...] 95% confidence interval of 99.78 to 99.96%. 28 Test Performed by: [place] [address] Medical Care Administrator: Nam Bruno III, M.D. 29 Result in log IU/mL is Undetected. The quantification range of this assay is 43 IU/mL to 69,000,000 IU/mL (1.63 log IU/mL to 7.84 log IU/mL). Testing was performed by the LIAM AmpliPrep/LIAM TaqMan HCV Test ([employer] Test Performed by: [place] [address] Medical Care Administrator: Nam Bruno III, M.D. 30 Because ethnic data is not always readily [...] 15-29 5 Kidney failure <15 (or dialysis) 31 Test Performed by: [place] [address] Medical Care Administrator: Nam Bruno III, M.D. 32 Result in log IU/mL is Undetected. The quantification range of this assay is 43 IU/mL to 69,000,000 IU/mL (1.63 log IU/mL to 7.84 log IU/mL). Testing was performed by the LIAM AmpliPrep/LIAM TaqMan HCV Test ([employer] Test Performed by: [place] [address] Medical Care Administrator: Nam Bruno III, M.D. 33 Because ethnic data is not always readily [...] 15-29 5 Kidney failure <15 (or dialysis) 34 Serum levels of PSA measured using the [employer] DXI Hybritech immunoassay should not be interpreted as absolute evidence of the presence or absence of disease. The PSA value should be used in conjunction with other pertinent clinical diagnostic procedures. The values obtained with different assay methods or kits cannot be used interchangeably. 35 High reactive sample are considered positive for HCV. 36 CHOLESTEROL INTERPRETATION: Desirable: Less than 200 MG/DL Borderline-High Risk: 200-239 MG/DL High-Risk: 240 MG/DL and over 37 HDL INTERPRETATION: Undesirable: High Risk: Less than 40 MG/DL Desirable: Low Risk: Greater than 60 MG/DL 38 LDL INTERPRETATION: Low Risk Optimal Level: LDL Less than 100 MG/DL Near or Above Optimal: LDL 100-129 MG/DL Borderline High Risk: LDL 130-159 MG/DL High Risk: LDL 160-189 MG/DL Very High Risk: LDL Greater than 189 MG/DL 39 Anion gap measurement may be of limited value in the presence of any alkalosis, especially in a combined acid base disorder. . 40 A metabolite of Naproxen, O-desmethylnaproxen, has been shown to interfere with the Jendrassik-Rey method for measuring total bilirubin. Samples from patients who have taken Naproxen have shown spurious elevation in total bilirubin levels. 41 Because ethnic data is not always readily [...] 15-29 5 Kidney failure <15 (or dialysis) 42 HCV RNA is not detected. Result in log IU/mL=Undetected Quantification range of this assay is 43 IU/mL to 69,000,000 IU/mL (1.63 to 7.84 log IU/mL). Testing was performed by the LIAM AmpliPrep/LIAM TaqMan HCV Test ([employer] Test Performed by: [facility] Dpt of Lab Med and Pathology [address] [place] [address] Medical Care Administrator: Nam Bruno III, M.D. 43 * SERUM LEVELS OF PSA MEASURED USING THE RENU NOAH ACCESS HYBRITECH IMMUNOASSAY SHOULD NOT BE INTERPRETED ABSOLUTE EVIDENCE OF THE PRESENCE OR ABSENCE OF DISEASE. THE PSA VALUE SHOULD BE USED IN CONJUNCTION WITH OTHER PERTINENT CLINICAL DIAGNOSTIC PROCEDURES. 44 FINAL INTERPRETATION: No HIV antibody is detected. . This information has been disclosed to you from confidential records which are protected by [place] State law. State law prohibits you from making further disclosure of this information without the specific written consent of the person to whom it pertains, or as otherwise permitted by law. Any unauthorized further disclosure in violation of state law may result in a fine or fci sentence or both. General authorization for the release of medical or other information is not, except in limited circumstances set forth in Part 63, Title 10, of [facility], sufficient authorization for further disclosure. Disclosure of confidential HIV information that occurs as the result of a general authorization for the release of medical or other information will be in violation of the state law and may result in a fine or a fci sentence. . 45 Anion gap measurement may be of limited value in the presence of any alkalosis, especially in a combined acid base disorder. . 46 Note change in reference range as of 02/12/08. The change was based on recommendations from the [place] [employer]. 47 A metabolite of Naproxen, O-desmethylnaproxen, has been shown to interfere with the Jendrassik-Leonore method for measuring total bilirubin. Samples from patients who have taken Naproxen have shown spurious elevation in total bilirubin levels. 48 Because ethnic data is not always readily [...] dialysis) Procedures Date CPT Code Description Status 07/08/2017 Inject/Drain Joint/Bursa Major Completed 04/30/2017 Aspiration &/Or Inj Of Ganglion Cyst(S) Any Completed Location 04/30/201745813 Inject Tendon Sheath Or Ligament Aponeurosis Eg Plantar Completed Fascia 03/19/2017 29483 Arthroscopy,Knee,Meniscectomy Medial Or Lateral Completed 03/19/2017 97392 Arthroscopy,Knee,Meniscectomy Medial Or Lateral Completed 10/30/2016 89622 Short Arm Cast Application Completed 09/10/2016 22578 Carpal Tunnel Release Completed 09/10/2016 93565 Carpal Tunnel Release Completed 05/24/2016 71393 Excision Tumor,Soft Tissue Of Hand Or Finger Subq Completed 05/24/2016 53519 Excision Tumor,Soft Tissue Of Hand Or Finger Subq Completed 05/24/2016 37026 Carpal Tunnel Release Completed 12/15/2014 13687 ECHO Stress Test Incl Perf Contiuous ekg Monitoring Completed W/Phys Superv 10/19/201004908 Injection Single Tendon Origin/Insertion Completed 07/12/2010 63939 Rad Exam; Elbow, Comp Completed 07/12/201070938 Injection Single Tendon Origin/Insertion Completed 05/26/2010 74631 EKG Tracing & Interpretation Completed 09/01/2009 Colonoscopy Completed 08/17/2008 24026 EKG Tracing & Interpretation Completed Encounters Type Date Location Provider CPT E/M Dx Office Visit 06/28/2017 [facility] Cates M.D. 82621 M17.11 2:45p [facility] M25.461 M25.561 Office Visit 05/13/2017 11:00a [facility] Internal Medicine Shira Jenkins, 08970 Z00.00 - Agustin Thomson Z87.891 Z82.49 Office Visit 04/30/2017 11:30a [facility] [place] [address] M65.311 [facility] M67.441 Office Visit 04/25/2017 9:40a [facility] Internal Medicine Sadaf Chavez, N.P. 51485 M79.641 - Dunbar R05 Office Visit 03/06/2017 9:00a [facility] Cates M.D. 50498 M25.561 [facility] M25.461 M17.11 S83.241A Office Visit 02/22/2017 5:00p [facility] Internal Shira Jenkins 07102 M25.561 Medicine - Agustin Thomsno Office Visit 11/09/2016 9:15a [place] [address] S63.501D [facility] Office Visit 10/26/2016 2:00p [facility] [place] [address] S63.501A [facility] Office Visit 08/21/2016 2:45p [facility] [address] G56.03 Of [facility] G56.01 Office Visit 05/16/2016 1:00p [facility] [place] [address] M67.442 [facility] G56.02 Office Visit 05/10/2016 10:40a [facility] Internal Medicine Shira Jenkins 04752 Z00.00 - Dunbar M.Akbar M67.442 Z87.891 L40.8 Z23 Office Visit 05/06/2015 10:20a [facility] Internal Medicine Shira Jenkins 13128 Z00.00 - Dunbar M.Akbar Office Visit 11/29/2014 4:00p [facility] Internal Medicine Shira Jenkins 58318 786.50 - Dunbar M.Akbar 729.5 793.6 Office Visit 01/27/2014 11:00a [facility] Internal Medicine Shira Jenkins 06108 719.46 - Dunbar M.DMely Office Visit 01/07/2014 1:20p [facility] Medicine Shira Jenkins 02874 726.19 - Dunbar M.DMely Office Visit 09/23/2013 1:40p [facility] Medicine Sadaf Chavez, N.P. 89020 V70.0 - Dunbar 272.4 696.1 304.03 571.40 783.1 257.2 Office Visit 10/21/2012 11:40a [facility] Internal Medicine Sadaf Chavez, N.P. 45591 V73.89 - Dunbar Office Visit 12/14/2011 3:00p [facility] Medicine Sadaf Chavez, N.P. 57635 V70.0 - Dunbar 272.4 696.1 V04.89 Office Visit 12/11/2010 1:40p DO Not Use [facility] Sadaf Chavez, 65336 465.9 N.P. 782.2 V70.0 Office Visit 11/09/2010 3:00p [facility] Lance Howard M.D. 07956 726.32 [facility] Office Visit 10/19/2010 1:45p [facility] [place] 91173 354.2 C.M.Amber Jacobsen M.D. 726.32 Office Visit 08/24/2010 2:30p DO Not Use [facility] Yvonne Del Valle, 67948 724.1 MDonna, FACP 786.2 Office Visit 08/21/2010 2:00p DO Not Use Sadaf Chavez, 69664 466.0 [facility] N.P. Office Visit 07/12/2010 1:15p [facility] [place] 19546 726.32 C.M.AMely Jacobsen M.D. 354.2 Office Visit 07/03/2010 2:15p DO Not Use Shira Cotton, 79716 729.5 [facility] M.Akbar 780.79 Office Visit 05/26/2010 1:15p DO Not Use Shira Gregory, 83621 780.79 [facility] Alok.Akbar 787.1 272.4 Office Visit 12/30/2009 9:15a DO Not Use [facility] Sadaf Chavez, 63475 724.1 N.P. Office Visit 08/17/2009 1:45p DO Not Use [facility] Sadaf Chavez, 53161 V70.0 N.P. 272.4 Office Visit 12/02/2008 8:30a DO Not Use Sadaf Chavez, 31567 719.41 [facility] N.P. Office Visit 10/11/2008 8:30a DO Not Use RadLila thomson, 77413 272.4 [facility] M.D. 696.1 Office Visit 08/17/2008 1:15p DO Not Use RadomsAshwin varnera, 03371 V70.0 [facility] M.D. 796.2 272.4 Office Visit 04/20/2008 9:30a DO Not Use RadomsAshwin varnera, 59875 V25.09 [facility] M.D. Office Visit 07/23/2007 3:15p DO Not Use RadomsLila varner, 78753 V70.0 [facility] M.D. 724.2 Office Visit 02/17/2007 11:45a DO Not Use RadomsLila varner, 63939 724.2 [facility] M.D. Office Visit 08/26/2006 11:30a DO Not Use RadomsLila varner, 59239 724.2 [facility] M.D. Office Visit 06/10/2006 1:30p DO Not Use RadLila thomson, 11412 V70.0 [facility] M.D. V04.81 V06.5 Plan of Care Future Appointment(s):07/22/2017 8:45 am - Michelle Cates M.D. at [facility]05/20/2018 11:00 am - Shira Jenkins M.D. at [facility] - Bficavmrj72/22/2018 - Michelle Cates M.D.M25.561 Pain in right kneeM25.461 Effusion, right kneeM17.11 Unilateral primary osteoarthritis, right knee
[2017-08-10 16:57] VITALS: BP 124/80
--- NOTE | 2017-08-10 17:04 | UC ---
Hand/Wrist HPI - HPI Summary HPI Summary: Right hand pain, hot swollen since earlier in the week. No fevers. Drainage. Using bandaids and antibiotic ointment. Had surgery a month ago with Dr. Irvin on the right hand. - History Of Current Complaint Chief Complaint: TRACEkin Stated Complaint: RIGHT HAND PAIN/SKIN ISSUE Time Seen by Provider: 08/10/17 16:48 Hx Obtained From: Patient Onset/Duration: Sudden Onset, Lasting Weeks - 1, Worse Since - onset Severity Initially: Mild Severity Currently: Moderate Pain Intensity: 2 Character Of Pain: Dull, Aching Aggravating Factor(s): Movement, Lifting Alleviating Factor(s): Rest Associated Signs And Symptoms: Positive: Swelling, Redness Related History: Dominant Hand Right - Allergies/Home Medications Allergies/Adverse Reactions: Allergies Allergy/AdvReac Type Severity Reaction Status Date / Time lanolin Allergy Rash Verified 08/10/17 16:50 niacin Allergy Rash Verified 08/10/17 16:50 Home Medications: Home Medications clomiPHENE citrate [Clomiphene Citrate] 25 mg QAM 08/10/17 [History Confirmed ] PMH/Surg Hx/FS Hx/Imm Hx - Surgical History Surgical History: Yes Surgery Procedure, Year, and Place: 5 hernia surgeries 1961 THROUGH 1992, left testicle removed [address] DR. 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 SPAULDING 6 cryoablation surgerys at [facility] [id number]; vasectomy 2005 ; left carpal tunnel, 05/2016; RIGHT CARPAL TUNNEL 09/2016 - Family History Known Family History: Positive: Cardiac Disease, Hypertension, Diabetes - Social History Occupation: Employed Full-time Lives: With Family Alcohol Use: None Substance Use Type: None Smoking Status (MU): Former Smoker Amount Used/How Often: 2 PACKS A DAY Have You Smoked in the Last Year: No When Did the Patient Quit Smoking/Using Tobacco: 2012 Review of Systems Musculoskeletal: Arthralgia - right hand Is Patient Immunocompromised?: No All Other Systems Reviewed And Are Negative: Yes Physical Exam Triage Information Reviewed: Yes Appearance: Well-Appearing, No Pain Distress, Well-Nourished Vital Signs: Initial Vital Signs Temp 98.1 F 08/10/17 16:51 Pulse 58 08/10/17 16:51 Resp 16 08/10/17 16:51 BP 124/80 08/10/17 16:51 Pulse Ox 100 08/10/17 16:51 Vital Signs Reviewed: Yes Eyes: Positive: Conjunctiva Clear Neck exam: Normal Respiratory Exam: Normal Cardiovascular Exam: Normal Musculoskeletal: Positive: ROM Limited @ - right 1st MCP., Other: - Right 1st MCP with palmar swelling, erythema, warmth and tenderness. Hand/Wrist Course/Dx - Differential Dx/Diagnosis Differential Diagnosis/HQI/PQRI: Cellulitis, Infection, Paronychia, Sprain Provider Diagnoses: Cellulitis right hand Discharge - Discharge Plan Condition: Stable Disposition: HOME Prescriptions: Cephalexin CAP* [Keflex 500 CAP*] 500 mg PO QID #28 cap Patient Education Materials: Cellulitis (ED), Cephalexin (By mouth) Referrals: Shira Jenkins MD [Primary Care Provider] - Zhang Irvin MD [Medical Doctor] - 2 Days (Please be seen on saturday)
== END 2017-08-10 17:25 | disposition home or self-care (01) ==
LOC: UCCORT 14:54
DX: Z87.891 Personal history of nicotine dependence (principal); L03.113 Cellulitis of right upper limb
CPT/HCPCS: 99212; G0463

== ENCOUNTER 2017-09-26 07:30 | Inpatient (IN) | payer BC ==
--- NOTE | 2017-09-13 17:08 | HP ---
PREOPERATIVE HISTORY AND PHYSICAL: DATE OF ADMISSION/SURGERY: 09/26/17 ATTENDING SURGEON: Michelle Cates MD * (DICTATED BY [facility]) PROCEDURE: Right total knee replacement. CHIEF COMPLAINT: Right knee pain. HISTORY OF PRESENT ILLNESS: Mr. Tillman is a 57-year-old male who presents to clinic for right knee pain due to severe end-stage osteoarthritis. He has failed conservative measures and has therefore agreed to undergo a right total knee replacement with Dr. Cates on 09/26/17. PAST MEDICAL HISTORY: Psoriasis. PAST SURGICAL HISTORY: Ganglion cyst removal of the right thumb, bilateral carpal tunnel releases, 5 hernia repairs, left testicle removal, cryoablation of the genitofemoral nerve, appendectomy, vasectomy, and right knee scope. The patient denies prior complications with anesthesia. MEDICATIONS: 1. Motrin 200 mg 2 to 3 by mouth every 4 to 6 hours as needed for pain. 2. Tylenol 325 mg 1 to 2 by mouth every 6 hours as needed for pain. 3. Clomid 50 mg half tab daily. 4. Fluconazole 0.05% twice a day as needed for rash. ALLERGIES: NIASPAN and LANOLIN. FAMILY HISTORY: Positive for cancer, diabetes, heart disease in a maternal grandmother with the possible history of DVT. SOCIAL HISTORY: He lives with his . He is a former smoker at 2 packs a day for 38 years, but quit in 2012. He denies alcohol or illegal drug use. REVIEW OF SYSTEMS: A 14-point review of systems was reviewed with patient. Positive for current complaint and history of hepatitis C. He was treated with interferon and has been retested and has been negative for hep C for several years. Review of systems otherwise negative. Denies fever, chills, chest pain, shortness of breath, history of DVT or PE, or history of bleeding disorders. PHYSICAL EXAMINATION GENERAL: A 57-year-old well-developed, well-nourished male, in no acute distress. Alert and oriented x3. Appropriate mood and affect. Appropriate balance and coordination of the lower extremities. VITAL SIGNS: Height 69, weight 201. Blood pressure 132/68, respiratory rate 18 , temperature 97. BMI 29.7. HEENT: Normocephalic, atraumatic. PERRLA. NECK: Supple. Throat clear. PULMONARY: Lungs clear to auscultation bilaterally. No wheezing, rhonchi, or rales. CARDIO: Regular rate and rhythm. S1, S2. No murmurs, gallops, or rubs. No edema. ABDOMEN: Positive bowel sounds. Soft, nontender. NEUROLOGICAL: Alert and oriented x3. Cranial nerves grossly intact. Sensation intact to light touch. MUSCULOSKELETAL: Right lower extremity, skin is intact. No warmth or erythema. Moderate effusion. Tenderness over the medial joint line. Range of motion 10 to 125. Stable to varus and valgus stress. Stable Bony. Negative for posterior drawer. +5/5 strength to dorsiflexion, plantar flexion. + 2 PT pulse. Sensation intact to light touch distally. STUDIES: Multi-view x-rays of the right knee revealed severe osteoarthritis with tricompartmental joint space narrowing, osteophyte formation, subchondral sclerosis. IMPRESSION: Right knee end-stage osteoarthritis. PLAN: The patient is scheduled to undergo a right total knee replacement with Dr. Cates on 09/26/17. Percocet will be used for postop pain management and Colace for prevention of constipation. The patient would like to undergo outpatient therapy after being discharged from the hospital, therefore, will likely be placed on aspirin postoperatively for DVT prophylaxis. [facility] [id number]/CPS #: [id number] MTDD
[~2017-09-26 07:30] MED LIST changes: -Bupivacaine 0.25% SDV* 30 ML ONE
--- OUTSIDE RECORDS SUMMARY | 2017-09-26 12:12 | XMS REPORT ---
:1960 External Reference #:[id number] Author Organization [facility] Address [address] [address] Phone [phone] Care Team Providers Name Role Phone Shira Jenkins MD Primary Care Physician Unavailable Payers Type Date Identification Numbers Payment Provider Subscriber Commercial Effective: Policy Number: LIBRA Heraclio Zhu 2013 [id number] PayID: [id number] [place] [id number] [place] [address] Medigap Part B Effective: 2010 Policy Number: LIBRA Heraclio Zhu [id number] Expires: 2011 PayID: [id number] [place] [id number] [place] [address] Medigap Part B Expires: 2010 Policy Number: [place] Darryl Mauriceanne marie Zhu [id number] PayID: [id number] [facility] [id number] [place] [address] Problems Date Description Provider Status Onset: 05/26/2010 Psoriasis Shira Jenkins M.D. Active Onset: 05/16/2016 Ganglion of hand Zhang Irvin MD Active Onset: 05/16/2016 Carpal tunnel syndrome of left wrist Zhang Irvin MD Active Onset: 08/21/2016 Bilateral carpal tunnel syndrome Zhang Irvin MD Active Onset: 03/06/2017 Current tear of medial cartilage Michelle Cates M.D. Active AND/OR meniscus of knee Onset: 04/30/2017 Snapping thumb syndrome Zhang Irvin MD Active Onset: 07/08/2017 Localized, primary osteoarthritis Michelle Cates M.D. Active Family History Date Family Member(s) Problem(s) Comments General Diabetes General Cancer General Stroke General Heart Disease Onset: (age 79 Father [place] living at 83, still Years) working : (age 57 Mother due to [place] sudden ; smoker Years) Siblings 3 Second Brother Coronary Artery Disease stents at age 49 (CAD) Paternal Grandfather due to () Pancreatic Cancer Maternal Grandmother due to Heart () - onset age Disease 38, multiple [place], PPM, lived to be 97, breast CA stomach CA Social History Type Date Description Comments Marital Status Lives With Occupation [employer], currently semi retired Cigarette Use [...] Form Strength Qnty SIG Indications Ordering Provider Motrin 07/03 Active Tablets 200mg taking 6-8 per day Alix Jenkins Tylenol Active Tablets 325mg prn Unknown / Clomid Active Tablets 50mg 1/2 tablet Joe, / daily MD Rolan Fluocinonide Active Cream 0.05% 30uni twice a day Unknown ts as needed rash Tramadol 07/15 Hx Tablets 37.5-325m 30tab 1-2 tab by Zhang Varghese/ g s mouth dong Irvin MD etaminophen - 4-6 hours as 07/16 Prilosec OTC 05/13 Hx Tablets 20mg 1 [...] MD Brandee - as needed 08/20 pain /2016 Morphine Sulfate 12/13 Hx Tablets 15mg one every 4 Shira hours Cotton, - M.D. 10/21 Cyclobenzaprine 08/24 Hx Tablets 10mg 30tab 1 tablet Yvonne HCL s three times Ivon, - a day as M.DMely, FACP 12/11 Physical Therapy 08/24 Hx lbp Yvonne Ivon, - M.DMely, FACP 12/13 Zithromax Z-Vijay 08/21 Hx Tablets [...] /0000 tablet by - mouth bid 06/27 Cephalexin Hx Capsules 500mg 1 tab po 4 Alley, /0000 times daily Paige Mejia MD 08/19 Medications Administered in Office Medication Date Status [...] CPT Code Status Date Vaccine Lot # [id number] Given 02/22/2017 Influenza Virus Vaccine, Quadrivalent, Split, Preservative Free [id number] Given 05/10/2016 Tetanus And Diptheria (Td) For Adult Use [id number] Preservative Free 37448 Given 03/20/2015 Influenza Virus Vaccine, Quadrivalent, Split, Preservative Free [id number] Given 04/07/2014 Afluria Vaccine 91468 Given 04/07/2013 Flu Vaccine Split Virus Preservative Free For [id number] Indiv 3Yr Older 60002 Given 12/14/2011 Zoster (Zostavax) [id number] 78543 Given 06/02/2009 Influenza Virus 3Yrs & Over 95489 Given 06/10/2006 Tdap - Tetanus/Diptheria/Acellular Pertussis [id number] 03848 Given 06/10/2006 Tdap - Tetanus/Diptheria/Acellular Pertussis 27128 Given 06/10/2006 Influenza Virus 3Yrs & Over 84430 Given 06/10/2006 Influenza Virus 3Yrs & Over Vital Signs Date Vital Result Comment 09/16/2017 Weight 199.75 lb Heart Rate 57 /min BP Systolic 118 mmHg BP Diastolic 64 mmHg Body Temperature 97.5 F O2 % BldC Oximetry 96 % 09/13/2017 Height 69 inches 5'9" Weight 201.00 lb BP Systolic 132 mmHg BP Diastolic 68 mmHg Respiratory Rate 18 /min Body Temperature 97.0 F Pain Level 4 BMI (Body Mass Index) 29.7 kg/m2 08/20/2017 Height 69 inches 5'9" Weight 191.00 lb Heart Rate 78 /min BP Systolic Sitting 112 mmHg BP Diastolic Sitting 70 mmHg Respiratory Rate 16 /min Pain Level 0 BMI (Body Mass Index) 28.2 kg/m2 08/12/2017 Height 69 inches 5'9" Weight 191.00 lb Heart Rate 66 /min BP Systolic Sitting 132 mmHg BP Diastolic Sitting 78 mmHg Respiratory Rate 16 /min Pain Level 2 BMI (Body Mass Index) 28.2 kg/m2 07/23/2017 Height 69 inches 5'9" Weight 191.00 lb Heart Rate 62 /min BP Systolic Sitting 126 mmHg BP Diastolic Sitting 80 mmHg Respiratory Rate 16 /min Pain Level 0 BMI (Body Mass Index) 28.2 kg/m2 07/22/2017 Height 69 inches 5'9" Weight 191.00 [...] Test Date Test Result H/L Range Note Urine Culture And 09/13/2017 Urine Culture SEE RESULT 1 Sensitivities BELOW Laboratory test finding 09/13/2017 TSH (Thyroid Stim 1.12 mcIU/mL 0.34- 5.60 Horm) Free T4 (Free Thyroxine) 0.88 ng/dL 0.61-1.12 Comp Metabolic Panel 09/13/2017 Sodium 139 mmol/L 133-145 Potassium 4.2 mmol/L 3.5-5.0 Chloride 104 mmol/L 101-111 Co2 Carbon Dioxide 30 mmol/L 22-32 Anion Gap 5 mmol/L 2-11 Glucose 96 mg/dL 70-100 Blood Urea Nitrogen 18 mg/dL 6-24 Creatinine 1.17 mg/dL 0.67-1.17 BUN/Creatinine Ratio 15.4 8-20 Calcium 9.8 mg/dL 8.6-10.3 Total Protein 7.1 g/dL 6.4-8.9 Albumin 4.5 g/dL 3.2-5.2 Globulin 2.6 g/dL 2-4 Albumin/Globulin Ratio 1.7 1-3 Total Bilirubin 0.40 mg/dL 0.2-1.0 Alkaline Phosphatase 50 U/L 34-104 Alt 24 U/L 7-52 Ast 30 U/L 13-39 Egfr Non- 63.8 >60 Egfr 82.1 >60 2 CBC Auto Diff 09/13/2017 White Blood Count 8.9 10^3/uL 3.5-10.8 Red Blood Count 4.85 10^6/uL 4.0-5.4 Hemoglobin 14.8 g/dL 14.0-18.0 Hematocrit 44 % 42-52 Mean Corpuscular Volume 91 fL 80-94 Mean Corpuscular Hemoglobin 31 pg 27-31 Mean Corpuscular HGB Conc 34 g/dL 31-36 Red Cell Distribution Width 13 % 10.5-15 Platelet Count 233 10^3/uL 150-450 Mean Platelet Volume 8.1 um3 7.4-10.4 Abs Neutrophils 4.9 10^3/uL 1.5-7.7 Abs Lymphocytes 2.8 10^3/uL 1.0-4.8 Abs Monocytes 0.7 10^3/uL 0-0.8 Abs Eosinophils 0.5 10^3/uL 0-0.6 Abs Basophils 0.1 10^3/uL 0-0.2 Abs Nucleated RBC 0 10^3/uL Granulocyte % 54.4 % 38-83 Lymphocyte % 31.0 % 25-47 Monocyte % 7.6 % High 0-7 Eosinophil % 6.2 % High 0-6 Basophil % 0.8 % 0-2 Nucleated Red Blood Cells % 0.1 Inr/Protime 09/13/2017 Inr 0.91 0.77-1.02 Type & Screen 09/13/2017 Patient Blood Type B Positive Antibody Screen NEGATIVE Laboratory test finding 09/13/2017 Partial Thrombo Time 29.2 seconds 26.0 -36.3 PTT Urinalysis Profile 09/13/2017 Urine Color Rhea Urine Appearance Cloudy Urine Specific [place]ola 1.018 1.010-1.030 Urine pH 7.0 5-9 Urine Urobilinogen Negative Negative Urine Ketones Negative Negative Urine Protein Negative Negative Urine Leukocytes Negative Negative Urine Blood Negative Negative * * Negative 3 Urine Nitrite Negative Negative Urine Bilirubin Negative Negative Urine Glucose Negative Negative Laboratory test finding 07/15/2017 Surgical Pathology SEE RESULT BELOW 4 Laboratory test finding 05/29/2017 PSA Screening 0.595 ng/mL 0-4.0 5 Basic Metabolic Panel 05/29/2017 Sodium 141 mmol/L 133-145 Potassium 4.1 mmol/L 3.5-5.0 Chloride 105 mmol/L 101-111 Co2 Carbon Dioxide 30 mmol/L 22-32 Anion Gap 6 mmol/L 2-11 Glucose 96 mg/dL 70-100 Blood Urea Nitrogen 20 mg/dL 6-24 Creatinine 1.11 mg/dL 0.67-1.17 BUN/Creatinine Ratio 18.0 8-20 Calcium 9.3 mg/dL 8.6-10.3 Egfr Non- 68.0 >60 Egfr 87.5 >60 6 Lipid Profile (Trig/Chol/HDL) 05/29/2017 Triglycerides 85 mg/dL 7 Cholesterol 153 mg/dL 8 HDL Cholesterol 43.2 mg/dL 9 LDL Cholesterol 93 mg/dL 10 Laboratory test 05/24/2016 Surgical Pathology SEE RESULT BELOW finding Comp Metabolic Panel 05/01/2016 Sodium 138 mmol/L [...] Non- 64.3 >60 Egfr 82.6 >60 13 Lipid Profile (Trig/Chol/HDL) 05/01/2016 Triglycerides 84 mg/dL 14 Cholesterol 148 mg/dL 15 HDL Cholesterol 42.8 mg/dL 16 LDL Cholesterol 88 mg/dL 17 Laboratory test finding 04/20/2016 PSA Screening 0.823 ng/mL 0-4.0 18 Testosterone Free & 04/25/2015 Free Testosterone ng/dl 5.60 ng/dL 0.89-14.17 19 Total Testosterone 467 ng/dL 240-950 20 CBC No Diff 04/25/2015 White Blood Count 6.4 10^3/uL 4.8-10.8 Red Blood Count 4.78 10^6/uL 4.0-5.4 Hemoglobin 14.6 g/dL 14.0-18.0 Hematocrit 45 % 42-52 Mean Corpuscular Volume 93 fL 80-94 Mean Corpuscular Hemoglobin 31 pg 27-31 Mean Corpuscular HGB Conc 33 g/dL 31-36 Red Cell Distribution Width 13 % 10.5-15 Platelet Count 209 10^3/uL 150-450 Mean Platelet Volume 8 um3 7.4-10.4 Basic Metabolic Panel 04/25/2015 Sodium 139 mmol/L 133-145 Potassium 4.4 mmol/L 3.5-5.0 Chloride 105 mmol/L 101-111 Co2 Carbon Dioxide 28 mmol/L 22-32 Anion Gap 6 mmol/L 2-11 Glucose 89 mg/dL 70-100 Blood Urea Nitrogen 15 mg/dL 6-24 Creatinine 1.11 mg/dL 0.67-1.17 BUN/Creatinine Ratio 13.5 8-20 Calcium 9.1 mg/dL 8.6-10.3 Egfr Non- 68.5 >60 Egfr 88.1 >60 21 Laboratory test finding 04/25/2015 Testosterone Total 331.88 ng/dL 240- 950 PSA Diagnostic 1.309 ng/mL 0-4.0 22 Lipid Profile (Trig/Chol/HDL) 09/10/2014 Triglycerides 71 mg/dL 23 Cholesterol 140 mg/dL 24 HDL Cholesterol 39.9 mg/dL 25 LDL Cholesterol 86 mg/dL 26 Comp Metabolic Panel 09/10/2014 Sodium 139 mmol/L [...] Egfr Non- 63.2 >60 Egfr 81.3 >60 27 Laboratory test 09/10/2014 Hepatitis C Rna Undetected IU/mL Undetected 28 finding Quantitative Testosterone Free 09/10/2014 Free Testosterone 8.2 ng/dL 9-30 29 & Total ng/dl Testosterone 454 ng/dL 240-950 30 Laboratory test 04/27/2013 Testosterone 310.1 ng/dL 175-781 finding Laboratory test 01/26/2013 Testosterone 282.7 ng/dL 175-781 finding HIV 1/2 AB Evaluation 10/22/2012 HIV 1 2 Antibody Nonreactive Nonreactive 31 Laboratory test 10/22/2012 Hepatitis A IgM Negative Negative 32 finding Antibody Hepatitis B Core IgM Nonreactive Nonreactive Hepatitis C Rna Quantitative Undetected IU/mL Undetected 33 Comp Metabolic Panel 10/22/2012 Sodium 142 mmol/L [...] Egfr Non- 69.8 >60 Egfr 89.7 >60 34 Laboratory test finding 10/22/2012 Ferritin 135 ng/mL 24-336 Hepatitis A IgM Antibody Negative Negative 35 Laboratory test 10/22/2012 Testosterone 363.0 ng/dL 175-781 finding Laboratory test 09/08/2012 Testosterone 177.3 ng/dL 175-781 finding Laboratory test 07/09/2012 Hepatitis C Rna Undetected IU/mL Undetected 36 finding Quantitative CBC Auto Diff 07/09/2012 White [...] Egfr Non- 87.9 >60 Egfr 113.1 >60 37 Laboratory test finding 07/09/2012 Testosterone 107.8 ng/dL Low 175-781 PSA Diagnostic 0.74 ng/mL 0-4.0 38 Comp Metabolic Panel 01/29/2012 Sodium 139 [...] > 60 eGFR 100.5 > 60 41 Hepatitis Acute Panel 01/29/2012 Hepatitis C Antibody High Reactive Nonreactive 42 Hepatitis A AB Igm Nonreactive Nonreactive Hepatitis B Core Igm Nonreactive Nonreactive Hepatitis B Surface Ag Nonreactive Nonreactive Lipid Profile (Trig/Chol/HDL) 01/29/2012 Triglyceride 84 mg/dL 40-200 Cholesterol 152 mg/dL Less Than 200 43 High Density Lipoprotein 33 mg/dL Low 40-60 44 Cholesterol/HDL Ratio 4.61 AVERAGE 1-4.97 Low Density Lipoprotein 102 mg/dL High Less Than 100 45 Laboratory test 05/30/2010 PSA,Diagnostic 1.10 NG/ML 0-4 46 finding Laboratory test 05/30/2010 Hepatitis C Rna Quant Undetected IU/mL () 47 finding Vad 05/30/2010 Vad Final NONREACTIVE Nonreactive 48 Laboratory test 05/30/2010 Erythrocyte Sed Rate 4 MM/HR 0-20 finding CBC With 05/30/2010 White Blood Count 6.0 CUMM 4.8-10.8 Electronic Diff Red Cell Count 4.79 CUMM 4.6-6.2 [...] mmol/L 22-32 Anion Gap 7.0 mmol/L 2-11 49 Glucose 91 mg/dL 70-100 50 BUN 12 mg/dL 6-24 Creatinine 1.20 mg/dL 0.50-1.40 One Over Creatinine 0.80 BUN/Creatinine Ratio 10.0 8-20 Calcium 9.2 mg/dL 8.1-9.9 Total Protein 6.2 GM/DL 6.2-8.1 Albumin 4.0 GM/DL 3.6-5.4 Globulin 2.2 GM/DL 2-4 Albumin/Globulin Ratio 1.8 1-3 Bilirubin Total 0.9 mg/dL 0.4-1.5 51 Alkaline Phosphatase 49 U/L 39-117 Alt (SGPT) 24 U/L 17-63 Ast (Sgot) 31 U/L 12-42 eGFR Non- 67.8 > 60 eGFR 82.1 > 60 52 1 SEE RESULT BELOW Name: ZOEY ZHU : [address]: Michelle Cates MD Acct: [id number] Unit: [id number] AGE: 57 Location: PAT Re09/13/17 SEX: M Status: REG REF SPEC: [id number] HENRY: 09/13/17-[address] [facility] [address]: Michelle Cates MD REQ: [id number] RECD: 09/13/17 STATUS: TOBY [facility] DR: Shira Jenkins MD _ SOURCE: URINE SPDESC: ORDERED: Urine Culture QUERIES: Urine Source: Clean Catch Procedure Result Reported Site Urine Culture Final 09/14/17- 0857 ML No Growth (<1,000 CFU/mL) * ML - Main Lab . END OF REPORT DEPARTMENT OF PATHOLOGY, [address] [place] [address] Wing Zhao M.D. Director [facility] # [id number] 2 Because ethnic data is not always [...] 5 Kidney failure <15 (or dialysis) 3 *Ascorbic acid is present which may interfere with detection of blood. 4 SEE RESULT BELOW Name: ZOEY ZHU : [address]: Zhang Irvin MD Acct: [id number] Unit: [id number] AGE: 57 Location: OR Re07/15/17 SEX: M Status: RYNE [facility] SPEC: [id number] HENRY: 07/15/17- [facility] DR: Zhang Irvin MD REQ: [id number] RECD: 07/15/17 STATUS: SOUT _ ORDERED: LEVEL [...] performed at Main Lab DEPARTMENT OF PATHOLOGY, [address] [place] [address] Wing Zhao M.D. Director [facility] # [id number] 5 Serum levels of PSA measured using the Renu [employer] DXI Hybritech immunoassay should not be interpreted [...] methods or kits cannot be used interchangeably. 6 Because ethnic data is not always readily [...] 15-29 5 Kidney failure <15 (or dialysis) 7 Desirable: <150 Borderline High: 150-199 High: 200-499 Very High: >500 8 Desirable: <200 Borderline High: 200-239 High: >239 9 Low: <40 Desirable: 40-60 High: >60 10 Desirable: <100 Near Optimal: 100-129 Borderline High: 130-159 High: 160-189 Very High: >189 11 [id number] 12 SEE RESULT BELOW Name: ZOEY ZHU : [address]: Zhang Irvin MD Acct: [id number] Unit: [id number] AGE: 55 Location: [facility]: 05/24/16 SEX: M Status: REG [facility] SPEC: [id number] HENRY: 05/24/16- SUBM DR: Zhang Irvin MD REQ: [id number] RECD: 05/24/166 STATUS: SOUT _ ORDERED: LEVEL III COMMENTS: [id number] FINAL DIAGNOSIS Skin, left thenar hand, excision: [...] performed at Main Lab DEPARTMENT OF PATHOLOGY, [address] [place] [address] Wing Zhao M.D. Director [facility] # [id number] 13 Because ethnic data is not always [...] 5 Kidney failure <15 (or dialysis) 14 Desirable <150 Borderline high 150-199 High 200-499 Very High >500 15 Desirable <200 Borderline high 200-239 High >239 16 Low <40 Desirable: 40-60 High: >60 17 Desirable: <100 mg/dL Near Optimal: 100-129 mg/dL Borderline High: 130-159 mg/dL High: 160-189 mg/dL Very High: >189 mg/dL 18 Serum levels of PSA measured using the Renu [place] DXI Hybritech immunoassay should not be interpreted as absolute evidence of the presence or absence of disease. The PSA value should be used in conjunction with other pertinent clinical diagnostic procedures. The values obtained with different assay methods or kits cannot be used interchangeably. 19 ADDITIONAL INFORMATION Testing performed by [facility]. 20 ADDITIONAL INFORMATION Testing performed by Liquid Chromatography-Tandem Mass Spectrometry (LC-MS/MS). Test Performed by: [place] [address] Supervisor Coremaker: Regulo Mercado II, M.D., Ph.D. 21 Because ethnic data is not always readily [...] 15-29 5 Kidney failure <15 (or dialysis) 22 Serum levels of PSA measured using the Discrete Sport DXI Hybritech immunoassay should not be interpreted as absolute evidence of the presence or absence of disease. The PSA value should be used in conjunction with other pertinent clinical diagnostic procedures. The values obtained with different assay methods or kits cannot be used interchangeably. 23 Desirable <150 Borderline high 150-199 High 200-499 Very High >500 24 Desirable <200 Borderline high 200-239 High >239 25 Low <40 Desirable: 40-60 High: >60 26 Desirable: <100 mg/dL Near Optimal: 100-129 mg/dL Borderline High: 130-159 mg/dL High: 160-189 mg/dL Very High: >189 mg/dL 27 Because ethnic data is not always readily [...] 15-29 5 Kidney failure <15 (or dialysis) 28 Result in log IU/mL is Undetected. ADDITIONAL INFORMATION The quantification range of this assay is 15 to 100,000,000 IU/mL (1.18 log to 8.00 log IU/mL). Testing was performed by the LIAM AmpliPrep/LIAM TaqMan HCV Test, version 2.0 ([employer] Test Performed by: [place] [address] Supervisor Coremaker: Regulo Mercado II, M.D., Ph.D. 29 ADDITIONAL INFORMATION Testing performed by [facility]. 30 ADDITIONAL INFORMATION Testing performed by Liquid Chromatography-Tandem Mass Spectrometry (LC-MS/MS). Test Performed by: [place] [address] Supervisor Coremaker: Regulo Mercado II, M.D., Ph.D. 31 It is recognized that currently available assays [...] 95% confidence interval of 99.78 to 99.96%. 32 Test Performed by: [place] [address] Supervisor Coremaker: Nam Bruno III, M.D. 33 Result in log IU/mL is Undetected. The quantification range of this assay is 43 IU/mL to 69,000,000 IU/mL (1.63 log IU/mL to 7.84 log IU/mL). Testing was performed by the LIAM AmpliPrep/LIAM TaqMan HCV Test ([employer] Test Performed by: [place] [address] Supervisor Coremaker: Nam Bruno III, M.D. 34 Because ethnic [...] 5 Kidney failure <15 (or dialysis) 35 Test Performed by: [place] [address] Supervisor Coremaker: Nam Bruno III, M.D. 36 Result in log IU/mL is Undetected. The quantification range of this assay is 43 IU/mL to 69,000,000 IU/mL (1.63 log IU/mL to 7.84 log IU/mL). Testing was performed by the LIAM AmpliPrep/LIAM TaqMan HCV Test ([employer] Test Performed by: [place] [address] Supervisor Coremaker: Nam Bruno III, M.D. 37 Because ethnic data is not always readily [...] 15-29 5 Kidney failure <15 (or dialysis) 38 Serum levels of PSA measured using the Discrete Sport DXI Hybritech immunoassay should not be interpreted as absolute evidence of the presence or absence of disease. The PSA value should be used in conjunction with other pertinent clinical diagnostic procedures. The values obtained with different assay methods or kits cannot be used interchangeably. 39 Anion gap measurement may be of limited value in the presence of any alkalosis, especially in a combined acid base disorder. . 40 A metabolite of Naproxen, O-desmethylnaproxen, has been shown to interfere with the [place] method for measuring total bilirubin. Samples from [...] 5 Kidney failure <15 (or dialysis) 42 High reactive sample are considered positive for HCV. 43 CHOLESTEROL INTERPRETATION: Desirable: Less than 200 MG/DL Borderline-High Risk: 200-239 MG/DL High-Risk: 240 MG/DL and over 44 HDL INTERPRETATION: Undesirable: High Risk: Less than 40 MG/DL Desirable: Low Risk: Greater than 60 MG/DL 45 LDL INTERPRETATION: Low Risk Optimal Level: LDL Less than 100 MG/DL Near or Above Optimal: LDL 100-129 MG/DL Borderline High Risk: LDL 130-159 MG/DL High Risk: LDL 160-189 MG/DL Very High Risk: LDL Greater than 189 MG/DL 46 * SERUM LEVELS OF PSA MEASURED USING THE RENU DEENA ACCESS HYBRITECH IMMUNOASSAY SHOULD NOT BE INTERPRETED ABSOLUTE EVIDENCE OF THE PRESENCE OR ABSENCE OF DISEASE. THE PSA VALUE SHOULD BE USED IN CONJUNCTION WITH OTHER PERTINENT CLINICAL DIAGNOSTIC PROCEDURES. 47 HCV RNA is not detected. Result in log IU/mL=Undetected Quantification range of this assay is 43 IU/mL to 69,000,000 IU/mL (1.63 to 7.84 log IU/mL). Testing was performed by the LIAM AmpliPrep/LIAM TaqMan HCV Test ([employer] Test Performed by: [facility] Med and Pathology [address] [place] [address] Supervisor Coremaker: Nam Bruno III, M.D. 48 FINAL INTERPRETATION: No HIV antibody is detected. . This information has been disclosed to you from confidential records which are protected by [place] State law. State law prohibits you from making further disclosure of this information without the specific written consent of the person to whom it pertains, or as otherwise permitted by law. Any unauthorized further disclosure in violation of state law may result in a fine or senior care sentence or both. General authorization for the release of medical or other information is not, except in limited circumstances set forth in Part 63, Title 10, of [place]CR[place], sufficient authorization for further disclosure. Disclosure of confidential HIV information that occurs as the result of a general authorization for the release of medical or other information will be in violation of the state law and may result in a fine or a senior care sentence. . 49 Anion gap measurement may be of limited value in the presence of any alkalosis, especially in a combined acid base disorder. . 50 Note change in reference range as of 02/12/08. The change was based on recommendations from the [place] [employer]. 51 A metabolite of Naproxen, O-desmethylnaproxen, has been shown to interfere with the [place] method for measuring total bilirubin. Samples from patients who have taken Naproxen have shown spurious elevation in total bilirubin levels. 52 Because ethnic data is not always readily [...] dialysis) Procedures Date CPT Code Description Status 08/12/2017 18795 I & D Post-Op Wound Infect Compl Completed 07/22/2017 52432 Inject/Drain Joint/Bursa Major Completed 07/15/2017 91425 Excision Tendon Sheath Ganglion /Or Joint Capsule Hand Completed Or Finger 07/15/2017 83550 Excision Tendon Sheath Ganglion /Or Joint Capsule Hand Completed Or Finger 07/15/2017 33882 Trigger Finger Release Incision / Tendon Sheath Completed Incision 07/15/2017 47103 Trigger Finger Release Incision / Tendon Sheath Completed Incision 07/15/2017 57448 Inject/Drain Joint/Bursa Major Completed 07/08/2017 91980 Inject/Drain Joint/Bursa Major Completed 04/30/2017 98791 Aspiration &/Or Inj Of Ganglion Cyst(S) Any Completed Location 04/30/2017 74349 Inject Tendon Sheath Or Ligament Aponeurosis Eg Plantar Completed Fascia 03/19/2017 13247 Arthroscopy,Knee,Meniscectomy Medial Or Lateral Completed 03/19/2017 33529 Arthroscopy,Knee,Meniscectomy Medial Or Lateral Completed 10/30/2016 92298 Short Arm Cast Application Completed 09/10/2016 73528 Carpal Tunnel Release Completed 09/10/2016 99026 Carpal Tunnel Release Completed 05/24/2016 43312 Carpal Tunnel Release Completed 05/24/2016 91976 Excision Tumor,Soft Tissue Of Hand Or Finger Subq Completed 05/24/2016 25071 Excision Tumor,Soft Tissue Of Hand Or Finger Subq Completed 12/15/2014 61908 ECHO Stress Test Incl Perf Contiuous ekg Monitoring Completed W/Phys Superv 10/19/2010 Injection Single Tendon Origin/Insertion Completed 07/12/2010 31045 Rad Exam; Elbow, Comp Completed 07/12/2010 Injection Single Tendon Origin/Insertion Completed 05/26/2010 30113 EKG Tracing & Interpretation Completed 09/01/2009 Colonoscopy Completed 08/17/2008 59911 EKG Tracing & Interpretation Completed Encounters Type Date Location Provider CPT E/M Dx Office Visit 08/12/2017 [place] [address] T81.4xxA 2:00p Of [facility] Office Visit 07/22/2017 Orthopedic Services Michelle Cates M.D. 56486 M25.561 8:45a Of C.MMelyAMely M25.461 M17.11 Office Visit 07/09/2017 9:15a [facility] [place] [address] M65.311 [facility] M67.441 Office Visit 06/28/2017 2:45p [facility] Of Michelle Cates M.D. 88164 M17.11 C.M.AMely M25.461 M25.561 Office Visit 05/13/2017 11:00a [facility] Shira Jenkins 46090 Z00.00 - Agustin Thomson Z87.891 Z82.49 Office Visit 04/30/2017 11:30a [facility] [place] [address] M65.311 [facility] M67.441 Office Visit 04/25/2017 9:40a [facility] Sadaf Chavez, N.PMely 09279 M79.641 - Agustin R05 Office Visit 03/06/2017 9:00a [facility] Of Michelle Cates M.D. 40105 M25.561 C.M.A. M25.461 M17.11 S83.241A Office Visit 02/22/2017 5:00p [facility] Internal Shira Jenkins 20237 M25.561 Medicine - Agustin Thomson Office Visit 11/09/2016 9:15a [facility] Services Zhang [place] [address] S63.501D Of C.M.AMely Office Visit 10/26/2016 2:00p [place] [address] S63.501A Of C.M.AMely Office Visit 08/21/2016 2:45p [place] [address] G56.03 Of Viviana G56.01 Office Visit 05/16/2016 1:00p [facility] [place] [address] M67.442 Viviana G56.02 Office Visit 05/10/2016 10:40a [facility] Shira Jenkins 26459 Z00.00 - [place] M.DMely M67.442 Z87.891 L40.8 Z23 Office Visit 05/06/2015 10:20a [facility] Shira Jenkins 04437 Z00.00 - [place] M.DMely Office Visit 11/29/2014 4:00p [facility] Shira Jenkins 50619 786.50 - [place] M.Akbar 729.5 793.6 Office Visit 01/27/2014 11:00a [facility] Shira Jenkins 94424 719.46 - [place] M.DMely Office Visit 01/07/2014 1:20p [facility] Shira Jenkins 84806 726.19 - [place] M.DMely Office Visit 09/23/2013 1:40p [facility] Sadaf Chavez, N.P. 11172 V70.0 - [place] 272.4 696.1 304.03 571.40 783.1 257.2 Office Visit 10/21/2012 11:40a [facility] Sadaf Chavez, N.P. 98527 V73.89 - [place] Office Visit 12/14/2011 3:00p [facility] Sadaf Chavez, N.P. 21913 V70.0 - [place] 272.4 696.1 V04.89 Office Visit 12/11/2010 1:40p DO Not Use [facility], 28406 465.9 N.P. 782.2 V70.0 Office Visit 11/09/2010 3:00p [facility] Lance Howard M.D. 49088 726.32 C.M.AMely Office Visit 10/19/2010 1:45p [facility] [place] 05423 354.2 C.MMina Jacobsen M.D. 726.32 Office Visit 08/24/2010 2:30p DO Not Use [facility] Yvonne Del Valle 24795 724.1 M.Akbar, FACP 786.2 Office Visit 08/21/2010 2:00p DO Not Use Sadaf Chavez, 79691 466.0 [facility] N.P. Office Visit 07/12/2010 1:15p [facility] [place] 14537 726.32 C.MMina Jacobsen M.D. 354.2 Office Visit 07/03/2010 2:15p DO Not Use Shira Cotton, 15765 729.5 [facility] M.D. 780.79 Office Visit 05/26/2010 1:15p DO Not Use Shira Cotton, 74872 780.79 [facility] M.D. 787.1 272.4 Office Visit 12/30/2009 9:15a DO Not Use [facility] Sadaf Chavez, 14436 724.1 N.P. Office Visit 08/17/2009 1:45p DO Not Use [facility] Saadf Chavez, 27254 V70.0 N.P. 272.4 Office Visit 12/02/2008 8:30a DO Not Use Sadaf Chavez, 15412 719.41 [facility] N.P. Office Visit 10/11/2008 8:30a DO Not Use Lila Cardona, 45238 272.4 [facility] M.D. 696.1 Office Visit 08/17/2008 1:15p DO Not Use Lila Cardona, 97382 V70.0 [facility] M.D. 796.2 272.4 Office Visit 04/20/2008 9:30a DO Not Use Lila Cardona, 04260 V25.09 [facility] M.D. Office Visit 07/23/2007 3:15p DO Not Use Radomski, Lila, 99178 V70.0 [facility] M.D. 724.2 Office Visit 02/17/2007 11:45a DO Not Use Radomski, Lila, 69092 724.2 [facility] M.D. Office Visit 08/26/2006 11:30a DO Not Use Radomski, Lila, 81153 724.2 [facility] M.D. Office Visit 06/10/2006 1:30p DO Not Use Radomski, Lila, 21338 V70.0 [facility] M.D. V04.81 V06.5 Plan of Care Future Appointment(s):09/26/2017 8:15 am - Ralph Ruiz PA-C at [facility].09/26/2017 8:15 am - CLINT Krishnamurthy at [facility].10/07/2017 2:15 pm - Michelle Cates M.D. at [facility].09/26/2017 8:15 am - Michelle Cates M.D. at [facility].05/20/2018 11:00 am - Shira Jenkins M.D. at [facility] - Srelxpeus90/26/2018 - Alessandro Baez, NPZ01.818 Encounter for other preprocedural examinationComments:I do not see any contraindications to your surgery.You should avoid aspirin, NSAIDs (ibuprofen, Motrin, aleve) and supplements 7 days prior to the procedure.M25.561 Pain in right knee
--- OUTSIDE RECORDS SUMMARY | 2017-09-26 12:13 | XMS REPORT ---
:1960 External Reference #:[id number] Author Organization [facility] Address [address] [address] Phone [phone] Care Team Providers Name Role Phone Shira Jenkins MD Primary Care Physician Unavailable Payers Type Date Identification Numbers Payment Provider Subscriber Commercial Effective: Policy Number: LIBRA Heraclio Zhu 2013 [id number] PayID: [id number] [place] [id number] [place] [address] Medigap Part B Effective: 2010 Policy Number: LIBRA Heraclio Zhu [id number] Expires: 2011 PayID: [id number] [place] [id number] [place] [address] Medigap Part B Expires: 2010 Policy Number: Supply Darryl Mauriceanne marie Zhu [id number] PayID: [id number] [facility] [address] [place] [address] Problems Date Description Provider Status Onset: 05/26/2010 [...] General Heart Disease Onset: (age 77 Father [place] living at 82, still Years) working : (age 55 Mother due to [place] sudden ; smoker Years) Siblings 3 Second Brother Coronary Artery Disease stents at age 49 (CAD) Paternal Grandfather due to () Pancreatic Cancer Maternal Grandmother due to Heart () - onset age Disease 38, multiple [place], PPM, lived to be 97, breast CA stomach CA Social History Type Date Description Comments Marital Status Lives With Occupation [employer], currently semi retired Cigarette Use [...] CPT Code Status Date Vaccine Lot # [id number] Given 02/22/2017 Influenza Virus Vaccine, Quadrivalent, Split, Preservative Free 19245 Given 05/10/2016 Tetanus And Diptheria (Td) For Adult Use [id number] Preservative Free 30680 Given 03/20/2015 Influenza Virus Vaccine, Quadrivalent, Split, Preservative Free [id number] Given 04/07/2014 Afluria Vaccine 34278 Given 04/07/2013 Flu Vaccine Split Virus Preservative Free For [id number] Indiv 3Yr Older 46619 Given 12/14/2011 Zoster (Zostavax) [id number] 07379 Given 06/02/2009 Influenza Virus 3Yrs & Over 44792 Given 06/10/2006 Tdap - Tetanus/Diptheria/Acellular Pertussis [id number] 32923 Given 06/10/2006 Tdap - Tetanus/Diptheria/Acellular Pertussis 07302 Given 06/10/2006 Influenza Virus 3Yrs & Over 52915 Given 06/10/2006 Influenza Virus 3Yrs & Over Vital Signs Date Vital Result Comment 09/13/2017 Height 69 inches 5'9" Weight 201.00 [...] LDL Cholesterol 93 mg/dL 6 Laboratory test 05/29/2017 PSA Screening 0.595 ng/mL 0-4.0 7 finding Laboratory test 05/24/2016 Surgical Pathology SEE RESULT BELOW 8, 9 finding Comp Metabolic Panel 05/01/2016 Sodium 138 [...] Egfr Non- 64.3 >60 Egfr 82.6 >60 10 Lipid Profile (Trig/Chol/HDL) 05/01/2016 Triglycerides 84 mg/dL 11 Cholesterol 148 mg/dL 12 HDL Cholesterol 42.8 mg/dL 13 LDL Cholesterol 88 mg/dL 14 Laboratory test finding 04/20/2016 PSA Screening 0.823 ng/mL 0-4.0 15 Testosterone Free & 04/25/2015 Free Testosterone ng/dl 5.60 ng/dL 0.89-14.17 16 Total Testosterone 467 ng/dL 240-950 17 CBC No Diff 04/25/2015 White Blood [...] Egfr Non- 68.5 >60 Egfr 88.1 >60 18 Laboratory test finding 04/25/2015 Testosterone Total 331.88 ng/dL 240- 950 PSA Diagnostic 1.309 ng/mL 0-4.0 19 Lipid Profile (Trig/Chol/HDL) 09/10/2014 Triglycerides 71 [...] 175-781 PSA Diagnostic 0.74 ng/mL 0-4.0 35 Comp Metabolic Panel 01/29/2012 Sodium 139 mmol/L 135-145 Potassium 4.2 mmol/L 3.5-5.0 Chloride 103 mmol/L 101-111 Co2 (Carbon Dioxide) 31.0 mmol/L 22-32 Anion Gap 5.0 mmol/L 2-11 36 Glucose 81 mg/dL 70-100 BUN 10 mg/dL 6-24 Creatinine 1.0 mg/dL 0.50-1.40 One Over Creatinine 1.00 BUN/Creatinine Ratio 10.0 8-20 Calcium 9.5 mg/dL 8.1-9.9 Total Protein 6.4 GM/DL 6.2-8.1 Albumin 4.0 GM/DL 3.6-5.4 Globulin 2.4 GM/DL 2-4 Albumin/Globulin Ratio 1.7 1-3 Bilirubin Total 0.7 mg/dL 0.4-1.5 37 Alkaline Phosphatase 58 U/L 39-117 Alt (SGPT) 17 U/L 17-63 Ast (Sgot) 26 U/L 12-42 eGFR Non- 78.2 > 60 eGFR 100.5 > 60 38 Hepatitis Acute Panel 01/29/2012 Hepatitis C Antibody High Reactive Nonreactive 39 Hepatitis A AB Igm Nonreactive Nonreactive Hepatitis B Core Igm Nonreactive Nonreactive Hepatitis B Surface Ag Nonreactive Nonreactive Lipid Profile (Trig/Chol/HDL) 01/29/2012 Triglyceride 84 mg/dL 40-200 Cholesterol 152 mg/dL Less Than 200 40 High Density Lipoprotein 33 mg/dL Low 40-60 41 Cholesterol/HDL Ratio 4.61 AVERAGE 1-4.97 Low Density Lipoprotein 102 mg/dL High Less Than 100 42 Laboratory test 05/30/2010 PSA,Diagnostic 1.10 NG/ML 0-4 43 finding Laboratory test 05/30/2010 Hepatitis C Rna Quant Undetected IU/mL () 44 finding Vad 05/30/2010 Vad Final NONREACTIVE [...] [address]: Zhang Irvin MD Acct: [id number] Unit: [id number] AGE: 57 Location: OR Re07/15/17 SEX: M Status: RYNE ANTOINE SPEC: [id number] HENRY: 07/15/17- SUBM DR: Zhang Irvin MD REQ: [id number] RECD: 07/15/177 STATUS: SOUT _ ORDERED: LEVEL 3 FINAL [...] performed at Main Lab DEPARTMENT OF PATHOLOGY, [address] [place] [address] Wing Zhao M.D. Director [facility] # [id number] 2 Because ethnic data is not always [...] levels of PSA measured using the R[employer] DXI Hybritech immunoassay should not be interpreted [...] or kits cannot be used interchangeably. 8 [id number] SEE RESULT BELOW Name: ZOEY ZHU : [address]: Zhang Irvin MD Acct: [id number] Unit: [id number] AGE: 55 Location: [facility] Re05/24/16 SEX: M Status: [facility] SPEC: [id number] HENRY: 05/24/16- [facility] DR: Zhang Irvin MD REQ: [id number] RECD: 05/24/16-1236 STATUS: SOUT _ ORDERED: LEVEL III COMMENTS: [id number] FINAL DIAGNOSIS Skin, left thenar hand, excision: [...] performed at Main Lab DEPARTMENT OF PATHOLOGY, [address] [place] [address] Wing Zhao M.D. Director [facility] # [id number] 10 Because ethnic data is not always readily [...] 15-29 5 Kidney failure <15 (or dialysis) 11 Desirable <150 Borderline high 150-199 High 200-499 Very High >500 12 Desirable <200 Borderline high 200-239 High >239 13 Low <40 Desirable: 40-60 High: >60 14 Desirable: <100 mg/dL Near Optimal: 100-129 mg/dL Borderline High: 130-159 mg/dL High: 160-189 mg/dL Very High: >189 mg/dL 15 Serum levels of PSA measured using the R[employer] DXI Hybritech immunoassay should not be interpreted as absolute evidence of the presence or absence of disease. The PSA value should be used in conjunction with other pertinent clinical diagnostic procedures. The values obtained with different assay methods or kits cannot be used interchangeably. 16 ADDITIONAL INFORMATION Testing performed by [facility]. 17 ADDITIONAL INFORMATION Testing performed by Liquid Chromatography-Tandem Mass Spectrometry (LC-MS/MS). Test Performed by: [place] [address] Crank Hand: Regulo Mercado II, M.D., Ph.D. 18 Because ethnic data is not always readily [...] 15-29 5 Kidney failure <15 (or dialysis) 19 Serum levels of PSA measured using the Renu Noah DXI Hybritech immunoassay should not be interpreted as absolute evidence of the presence or absence of disease. The PSA value should be used in conjunction with other pertinent clinical diagnostic procedures. The values obtained with different assay methods or kits cannot be used interchangeably. 20 Desirable <150 Borderline high 150-199 High [...] AmpliPrep/LIAM TaqMan HCV Test, version 2.0 ([employer] Test Performed by: [place] [address] Crank Hand: Regulo G. Morice, II, M.D., Ph.D. 26 ADDITIONAL INFORMATION Testing performed by [facility]. 27 ADDITIONAL INFORMATION Testing performed by Liquid Chromatography-Tandem Mass Spectrometry (LC-MS/MS). Test Performed by: [place] [address] Crank Hand: Regulo Mercado II, M.D., Ph.D. 28 It [...] 99.78 to 99.96%. 29 Test Performed by: [place] [address] Crank Hand: Nam Bruno III, M.D. 30 Result in log IU/mL is Undetected. The quantification range of this assay is 43 IU/mL to 69,000,000 IU/mL (1.63 log IU/mL to 7.84 log IU/mL). Testing was performed by the LIAM AmpliPrep/LIAM TaqMan HCV Test ([employer] Test Performed by: [place] [address] Crank Hand: Nam Bruno III, M.D. 31 Because ethnic [...] <15 (or dialysis) 32 Test Performed by: [place] [address] Crank Hand: Nam Bruno III, M.D. 33 Result in log IU/mL is Undetected. The quantification range of this assay is 43 IU/mL to 69,000,000 IU/mL (1.63 log IU/mL to 7.84 log IU/mL). Testing was performed by the LIAM AmpliPrep/LIAM TaqMan HCV Test ([employer] Test Performed by: [place] [address] Crank Hand: Nam Bruno III, M.D. 34 Because ethnic [...] Serum levels of PSA measured using the [employer] DXI Hybritech immunoassay should not be interpreted as absolute evidence of the presence or absence of disease. The PSA value should be used in conjunction with other pertinent clinical diagnostic procedures. The values obtained with different assay methods or kits cannot be used interchangeably. 36 Anion gap measurement may be of limited value in the presence of any alkalosis, especially in a combined acid base disorder. . 37 A metabolite of Naproxen, O-desmethylnaproxen, has been shown to interfere with the Jendrassik-Castleberry method for measuring total bilirubin. Samples from patients who have taken Naproxen have shown spurious elevation in total bilirubin levels. 38 Because ethnic data is not always readily [...] 15-29 5 Kidney failure <15 (or dialysis) 39 High reactive sample are considered positive for HCV. 40 CHOLESTEROL INTERPRETATION: Desirable: Less than 200 MG/DL Borderline-High Risk: 200-239 MG/DL High-Risk: 240 MG/DL and over 41 HDL INTERPRETATION: Undesirable: High Risk: Less than 40 MG/DL Desirable: Low Risk: Greater than 60 MG/DL 42 LDL INTERPRETATION: Low Risk Optimal Level: LDL Less than 100 MG/DL Near or Above Optimal: LDL 100-129 MG/DL Borderline High Risk: LDL 130-159 MG/DL High Risk: LDL 160-189 MG/DL Very High Risk: LDL Greater than 189 MG/DL 43 * SERUM LEVELS OF PSA MEASURED USING THE RENU Kekanto ACCESS HYBRITECH IMMUNOASSAY SHOULD NOT BE INTERPRETED ABSOLUTE EVIDENCE OF THE PRESENCE OR ABSENCE OF DISEASE. THE PSA VALUE SHOULD BE USED IN CONJUNCTION WITH OTHER PERTINENT CLINICAL DIAGNOSTIC PROCEDURES. 44 HCV RNA is not detected. Result in log IU/mL=Undetected Quantification range of this assay is 43 IU/mL to 69,000,000 IU/mL (1.63 to 7.84 log IU/mL). Testing was performed by the LIAM AmpliPrep/LIAM TaqMan HCV Test ([employer] Test Performed by: [facility] Dpt of Lab Med and Pathology [address] [place] [address] Crank Hand: Nam Bruno III, M.D. 45 FINAL INTERPRETATION: No HIV antibody is detected. . This information has been disclosed to you from confidential records which are protected by [place] State law. State law prohibits you from making further disclosure of this information without the specific written consent of the person to whom it pertains, or as otherwise permitted by law. Any unauthorized further disclosure in violation of state law may result in a fine or mcfp sentence or both. General authorization for the release of medical or other information is not, except in limited circumstances set forth in Part 63, Title 10, of [facility], sufficient authorization for further disclosure. Disclosure of confidential HIV information that occurs as the result of a general authorization for the release of medical or other information will be in violation of the state law and may result in a fine or a mcfp sentence. . 46 Anion gap measurement may be of limited value in the presence of any alkalosis, especially in a combined acid base disorder. . 47 Note change in reference range as of 02/12/08. The change was based on recommendations from the [place] [employer]. 48 A metabolite of Naproxen, O-desmethylnaproxen, has been shown to interfere with the Jendrassik-Castleberry method for measuring total bilirubin. Samples from [...] Procedures Date CPT Code Description Status 08/12/2017 80123 I & D Post-Op Wound Infect Compl Completed 07/22/2017 26556 Inject/Drain Joint/Bursa Major Completed 07/15/2017 53441 Excision Tendon Sheath Ganglion /Or Joint Capsule Hand Completed Or Finger 07/15/2017 89337 Excision Tendon Sheath Ganglion /Or Joint Capsule Hand Completed Or Finger 07/15/2017 13845 Trigger Finger Release Incision / Tendon Sheath Completed Incision 07/15/2017 44693 Trigger Finger Release Incision / Tendon Sheath Completed Incision 07/15/2017 64648 Inject/Drain Joint/Bursa Major Completed 07/08/2017 72528 Inject/Drain Joint/Bursa Major Completed 04/30/201728192 Aspiration &/Or Inj Of Ganglion Cyst(S) Any Completed Location 04/30/201790599 Inject Tendon Sheath Or Ligament Aponeurosis Eg Plantar Completed Fascia 03/19/2017 78483 Arthroscopy,Knee,Meniscectomy Medial Or Lateral Completed 03/19/2017 15868 Arthroscopy,Knee,Meniscectomy Medial Or Lateral Completed 10/30/2016 28490 Short Arm Cast Application Completed 09/10/2016 85231 Carpal Tunnel Release Completed 09/10/2016 57149 Carpal Tunnel Release Completed 05/24/2016 50886 Carpal Tunnel Release Completed 05/24/2016 51756 Excision Tumor,Soft Tissue Of Hand Or Finger Subq Completed 05/24/2016 86179 Excision Tumor,Soft Tissue Of Hand Or Finger Subq Completed 12/15/2014 24173 ECHO Stress Test Incl Perf Contiuous ekg Monitoring Completed W/Phys Superv 10/19/201034788 Injection Single Tendon Origin/Insertion Completed 07/12/2010 67961 Rad Exam; Elbow, Comp Completed 07/12/201028110 Injection Single Tendon Origin/Insertion Completed 05/26/2010 25914 EKG Tracing & Interpretation Completed 09/01/2009 Colonoscopy Completed 08/17/2008 94450 EKG Tracing & Interpretation Completed Encounters Type Date Location Provider CPT E/M Dx Office Visit 08/12/2017 [place] [address] T81.4xxA 2:00p Of [facility] Office Visit 07/22/2017 Orthopedic Services Michelle Cates M.D. 89174 M25.561 8:45a Of MarioMMina M25.461 M17.11 Office Visit 07/09/2017 9:15a [facility] [place] [address] M65.311 [facility] M67.441 Office Visit 06/28/2017 2:45p [facility] Of Michelle Cates M.D. 24948 M17.11 C.M.AMely M25.461 M25.561 Office Visit 05/13/2017 11:00a [facility] Shira Jenkins 82745 Z00.00 - Agustin Thomson Z87.891 Z82.49 Office Visit 04/30/2017 11:30a [facility] [address] M65.311 [facility] M67.441 Office Visit 04/25/2017 9:40a [facility] Sadaf Chavez N.PMely 88060 M79.641 - Agustin R05 Office Visit 03/06/2017 9:00a [facility] Michelle Cates M.D. 23489 M25.561 C.M.AMely M25.461 M17.11 S83.241A Office Visit 02/22/2017 5:00p [facility] Shira Jenkins 74553 M25.561 Medicine - Agustin Thomson Office Visit 11/09/2016 9:15a [place] [address] S63.501D Of [facility]. Office Visit 10/26/2016 2:00p [place] [address] S63.501A Of C.M.A. Office Visit 08/21/2016 2:45p [place] [address] G56.03 Of C.M.AMely G56.01 Office Visit 05/16/2016 1:00p [facility] [place] [address] M67.442 C.MMina G56.02 Office Visit 05/10/2016 10:40a [facility] Shira Jenkins 26750 Z00.00 - [place] Alok.Akbar M67.442 Z87.891 L40.8 Z23 Office Visit 05/06/2015 10:20a [facility] [address] Z00.00 - [place] M.D. Office Visit 11/29/2014 4:00p [facility] [address] 786.50 - [place] M.Akbar 729.5 793.6 Office Visit 01/27/2014 11:00a [facility] [address] 719.46 - [place] M.D. Office Visit 01/07/2014 1:20p [facility] [address] 726.19 - [place] M.Akbar Office Visit 09/23/2013 1:40p [facility] Sadaf Chavez, N.P. 28643 V70.0 - [place] 272.4 696.1 304.03 571.40 783.1 257.2 Office Visit 10/21/2012 11:40a [facility] Sadaf Chavez, N.P. 22238 V73.89 - [place] Office Visit 12/14/2011 3:00p [facility] Sadaf Chavez, N.P. 68380 V70.0 - [place] 272.4 696.1 V04.89 Office Visit 12/11/2010 1:40p DO Not Use [facility] Sadaf Chavez, 13124 465.9 N.P. 782.2 V70.0 Office Visit 11/09/2010 3:00p [facility] Lance Howard M.D. 37494 726.32 C.M.A. Office Visit 10/19/2010 1:45p [facility] [place] 92666 354.2 C.M.AMely Jacobsen M.D. 726.32 Office Visit 08/24/2010 2:30p DO Not Use [facility] Yvonne Del Valle 67668 724.1 MDonna, FACP 786.2 Office Visit 08/21/2010 2:00p DO Not Use Sadaf Chavez, 17382 466.0 [facility] N.P. Office Visit 07/12/2010 1:15p [facility] [place] 58240 726.32 Viviana Jacobsen M.D. 354.2 Office Visit 07/03/2010 2:15p DO Not Use Shira Cotton, 05844 729.5 [facility] M.D. 780.79 Office Visit 05/26/2010 1:15p DO Not Use Shira Cotton, 37528 780.79 [facility] M.D. 787.1 272.4 Office Visit 12/30/2009 9:15a DO Not Use [facility] Sadaf Varn, 07184 724.1 N.P. Office Visit 08/17/2009 1:45p DO Not Use [facility] Sadaf Katyh, 98534 V70.0 N.P. 272.4 Office Visit 12/02/2008 8:30a DO Not Use Sadaf Varn, 21596 719.41 [facility] N.P. Office Visit 10/11/2008 8:30a DO Not Use RadLila thomson, 25831 272.4 [facility] M.D. 696.1 Office Visit 08/17/2008 1:15p DO Not Use Lila Cardona, 22237 V70.0 [facility] M.D. 796.2 272.4 Office Visit 04/20/2008 9:30a DO Not Use Lila Cardona, 56313 V25.09 [facility] M.D. Office Visit 07/23/2007 3:15p DO Not Use Lila Cardona, 76743 V70.0 [facility] M.D. 724.2 Office Visit 02/17/2007 11:45a DO Not Use RadLila thomson, 31510 724.2 [facility] M.D. Office Visit 08/26/2006 11:30a DO Not Use RadLila thomson, 35808 724.2 [facility] M.D. Office Visit 06/10/2006 1:30p DO Not Use Lila Cardona, 91352 V70.0 [facility] M.D. V04.81 V06.5 Plan of Care Future Appointment(s):09/26/2017 8:15 am - Ralph Ruiz PA-C at [facility]09/26/2017 8:15 am - CLINT Krishnamurthy at [facility]10/07/2017 2:15 pm - Michelle Cates M.D. at [facility]09/16/2017 9:20 am - Alessandro Baez NP at [facility] - Apfjgpavv85/05/2018 8:15 am - Michelle Cates M.D. at [facility]05/20/2018 11:00 am - Shira Jenkins M.D. at [facility] - Mzhuprfpt96/23/2018 - Michelle Cates M.D.M25.561 Pain in right kneeFollow up: Follow up: 2 weeks after rpnwtooF26.461 Effusion, right kneeM17.11 Unilateral primary osteoarthritis, right knee
[2017-09-26] MEDS ORDERED: ceFAZolin 2 GM PREMIX (*) 2 GM/50 ML BAG IVPB ONE (12:32)
[2017-09-26] MEDS ORDERED: Midazolam* 1 MG/ML 5 ML VIAL (5 MG) ONE (13:51)
[2017-09-26] MEDS ORDERED: fentaNYL* 50 MCG/ML 2 ML VIAL (100 MCG VIAL) ONE ×2 (13:51→15:50)
[2017-09-26] MEDS ORDERED: PROCHLORPERAZINE INJ 5 MG/ML 2 ML VIAL IV PRN (14:32)
[2017-09-26] MEDS ORDERED: Ondansetron INJ* 2 MG/ML VIAL IV PRN (14:32)
[2017-09-26] MEDS ORDERED: DiMENhydriNATE IV* 50 MG/ML VIAL IV PUSH PRN (14:32)
[2017-09-26] MEDS ORDERED: HYDROmorphone INJ* 1 MG/ML CARPUJECT SYRINGE IV PRN (14:32)
[2017-09-26] MEDS ORDERED: Acetaminophen TAB* 325 MG PO PRN ×2 (14:32→15:16)
[2017-09-26] MEDS ORDERED: HYDROcodone/ACETAMIN 5-325 MG* 1 TAB PO PRN (14:32)
[2017-09-26] MEDS ORDERED: Naloxone* 0.4 MG/ML 1 ML VIAL IV PRN (14:32)
[2017-09-26] MEDS ORDERED: fentaNYL* 50 MCG/ML 2 ML VIAL (100 MCG VIAL) IV PRN (14:32)
[2017-09-26] MEDS ORDERED: Levalbuterol 0.63MG/3ML NEB* UNIT OF USE INH PRN (14:32)
[2017-09-26] MEDS ORDERED: ROPIVACAINE 5 MG/ML 30 ML BTL (0.5%) ONE (14:35)
[2017-09-26] MEDS ORDERED: Bupivacaine-MPF SPINAL* 7.5 MG/2 ML AMP ONE (14:35)
[2017-09-26] MEDS ORDERED: Midazolam* 1 MG/ML 2 ML VIAL (2 MG) ONE ×3 (15:10→15:55)
[2017-09-26] MEDS ORDERED: diPHENhydraMINE IV* 50 MG/ML 1 ml VIAL (BENADRYL) IV PRN (15:16)
[2017-09-26] MEDS ORDERED: Ondansetron TAB* 4 MG PO PRN (15:16)
[2017-09-26] MEDS ORDERED: oxyCODONE/Acetamin 5/325 MG* TAB PO PRN (15:16)
[2017-09-26] MEDS ORDERED: Polyethylene Glycol 3350* 17 GM PACKET PO PRN (15:16)
[2017-09-26] MEDS ORDERED: Magnesium Hydroxide LIQ* 30 ML UDC PO PRN (15:16)
[2017-09-26] MEDS ORDERED: Bisacodyl SUPP* 10 MG SUPP PR PRN (15:16)
[2017-09-26] MEDS ORDERED: diPHENhydraMINE IV* 50 MG/ML 1 ml VIAL (BENADRYL) ONE (15:22)
[2017-09-26] MEDS ORDERED: Dexmedetomidine* 200 MCG/2 ML 2 ML VIAL ONE (15:30)
[2017-09-26] MEDS ORDERED: Famotidine IV* 10 MG/ML 2 ML (20 mg) ONE (15:38)
[2017-09-26] MEDS ORDERED: Dexamethasone IV* 4 MG/ML 1 ML (4 MG) ONE (15:38)
[2017-09-26] MEDS ORDERED: Hetastarch in NS* 500 ML IV ONE (15:40)
[2017-09-26] MEDS ORDERED: Bupivacaine 0.5%* 50 ML VIAL ONE (17:00)
--- NOTE | 2017-09-26 18:42 | RAD ---
INDICATION: Right total knee replacement COMPARISON: September 13, 2017 TECHNIQUE: Portable AP and crosstable lateral were obtained. FINDINGS: There is right knee arthroplasty. Both femoral and tibial components appear well seated. There is no overlying cooling jacket. IMPRESSION: POSTOP RIGHT TOTAL KNEE
[2017-09-26] MEDS ORDERED: Ondansetron INJ* 2 MG/ML VIAL ONE (20:38)
[2017-09-26] MEDS ORDERED: ceFAZolin 1 GM in Dextrose (*) 1 GM/50 ML BAG IVPB SCH (23:00)
[2017-09-26] MEDS: Morphine INJ* 2 MG/ML 1 ML CARPUJECT IV PRN (23:10)
[2017-09-26] MEDS: Docusate CAP* 100 MG PO SCH (23:22)
[2017-09-26] MEDS: Magnesium Hydroxide LIQ* 30 ML UDC PO SCH (23:22)
[2017-09-27] MEDS: oxyCODONE/Acetamin 5/325 MG* TAB PO PRN ×5 (00:43→22:07)
[2017-09-27] MEDS: Cyclobenzaprine TAB* 10 MG PO PRN ×2 (01:20→15:40)
[2017-09-27] MEDS: Morphine INJ* 2 MG/ML 1 ML CARPUJECT IV PRN ×3 (01:22→13:55)
[2017-09-27] MEDS: oxyCODONE TAB* 5 MG TAB PO PRN ×6 (02:59→23:57)
[2017-09-27 05:39] LABS: Hematocrit 32 % (42-52); Hemoglobin 11.1 g/dl (14.0-18.0); Mean Platelet Volume 7.9 um3 (7.4-10.4); Platelet Count 176 10^3/ul (150-450)
[2017-09-27 05:55] LABS: EGFR Non-African American 68.5 (>60)
[2017-09-27] MEDS: ceFAZolin 1 GM in Dextrose (*) 1 GM/50 ML BAG IVPB SCH ×2 (07:25→15:40)
[2017-09-27] MEDS: Ondansetron INJ* 2 MG/ML VIAL IV PRN ×2 (08:01→13:53)
--- NOTE | 2017-09-27 09:06 | PN ---
Progress Note - Progress Note Date of Service: 09/27/17 SOAP: Subjective: 57 y/o male s/p right TKA 09/[address] Cates. Patient c/o nausea, more pain then expected. Would like D/C tomorrow if possible. VSS, afebrile overnight. Objective: General- Well appearing, NAD, AO SItting in chair well. MSK- RLE- DF/PF = b/l, PT 2+, negative homans sign, SITLT, surgical dressing intact, + acute blood seen on dressing where drain was pulled, no active bleeding appreciated. Vital Signs Temp 98.5 F 09/27/17 07:50 Pulse 58 09/27/17 07:50 Resp 18 09/27/17 11:45 BP 118/55 09/27/17 07:50 Pulse Ox 98 09/27/17 07:50 Intake & Output 09/26/17 09/27/17 09/27/17 18:59 06:59 18:59 Intake Total 50 500 1100 Output Total 1650 Balance 50 -1150 1100 Weight 90.174 kg Intake: IV Fluids 50 NS 50ML, Cefazolin 2G 50 IVPB 55 cefazolin 55 Oral 500 1045 Output: Urine 0 Garrison 1650 Assessment: Stable 57 y/o male s/p right TKA 09/[address] Cates. Plan: - DVT prophylaxis- lovenox. HOme on ASA - Continue PT/ OT - Follow up with Dr. Cates within 10-14 days - H&H - STable - post-op IV ABX - RUnning - Likely D/C home tomorrow - Scop patch placed.
[2017-09-27] MEDS: Magnesium Hydroxide LIQ* 30 ML UDC PO SCH ×2 (09:23→20:56)
[2017-09-27] MEDS: Docusate CAP* 100 MG PO SCH ×2 (09:24→20:56)
[2017-09-27] MEDS: Morphine TAB Extended Release (*) 30 MG TAB.ER PO SCH ×2 (09:24→20:55)
[2017-09-27] MEDS: Enoxaparin(*) 30 MG/0.3 ML SYR SUBCUT SCH (11:44)
[2017-09-27] MEDS ORDERED: Scopolamine 1.5 mg* PATCH TRANSDERM SCH (13:00)
--- NOTE | 2017-09-27 16:40 | OP ---
OPERATIVE REPORT: DATE OF OPERATION: 09/26/17 DATE OF : 56 ATTENDING SURGEON: Michelle Cates MD LINE ASSEMBLER AIRCRAFT: CLINT Foreman Ms. did help throughout the procedure with preparation of the leg, wound retraction, manipul ation of the knee, and wound closure. ANESTHESIOLOGIST: Dr. oMrin. ANESTHESIA: Spinal. PRE-OP DIAGNOSIS: Severe end-stage degenerative osteoarthritis of the right knee joint. POST-OP DIAGNOSIS: Severe end-stage degenerative osteoarthritis of the right knee joint. OPERATIVE PROCEDURE: Right total knee arthroplasty. TOURNIQUET TIME: 65 minutes. COMPLICATIONS: None. ESTIMATED BLOOD LOSS: 300 cc. SPECIMENS: Bone and cartilage from the right knee joint. HARDWARE USED: This is a cemented Barrientos and Nephew total knee arthroplasty hardware. Two packages o f Simplex bone cement. For the femur, a size 6 right Oxinium Legion posterior stabilized femoral com ponent. For the tibia, a size 6 right tibial base plate Gosia II. For the insert, a 9-mm High Fle x posterior stabilized articular insert, size 5/6. For the patella, a 35-mm 3-peg all poly patella. BRIEF HISTORY AND INDICATIONS: Mr. Tillman is a 57-year-old gentleman with years of increasingly s evere right knee pain. He failed conservative treatment with anti- inflammatories, pain medication, intraarticular injections, and physical therapy. Radiographs and arthroscopy showed advanced arthriti s in the patellofemoral and medial compartments. Due to continued pain and decreased quality of life , the patient elected to undergo right total knee arthroplasty. Informed consent was obtained from t patient. He understood the risks of the surgery included, but were not limited to, bleeding, infe ction, damage to nearby structures, continued pain, need for further surgery, intraoperative fracture , nerve palsy, hardware failure, loosening, knee stiffness, loss of motion, stroke, heart attack, blo od clot, and . He wished to proceed. INTRAOPERATIVE FINDINGS: Intraoperatively, the patient was noted to have severe loss of cartilage in the medial and patellofemoral compartments. DESCRIPTION OF PROCEDURE: Mr. Tillman was identified in the preanesthesia unit. His right lower ex tremity was marked as the correct operative side. Informed consent was signed and placed in the [facility]. The patient was taken to the operating room and placed under spinal anesthesia. A Garrison catheter was placed. Right lower extremity was prepped and draped in the usual sterile fashion. Preop time- out was made to correctly identify the patient's side and site. Appropriate perioperative antibiotic s were given within 1 hour of incision. Tourniquet was inflated and total tourniquet time for this procedure was 65 minutes. A 12 cm midline incision was made with a 10 blade and carried down to the extensor mechanism. New 10 blade was used to make a standard medial parapatellar arthrotomy. The patella was subluxed laterally. The knee wa s flexed up. The anterior horn of the lateral meniscus and ACL were sharply released. A drill was u sed to enter the distal femur. Intramedullary distal femoral cutting guide was pinned on the distal femur. Oscillating saw was used make the distal femoral cut. The external rotation guide was pinned on the distal femur and the distal femur was sized to a size 6. Size 6 multi-cutting jig was pinned on the distal femur. The oscillating saw was used to make the appropriate 4 chamfer cuts. The PCL was completely released. Extramedullary tibial cutting guide was pinned on the proximal tibi a. The oscillating saw was used to make the proximal tibial cut perpendicular to the mechanical axis of the tibia. The bone was carefully removed. The knee was brought out into full extension. The sp acer block had good fit. Medial and lateral ligaments were well balanced. Any medial osteophytes wer e carefully removed with a rongeur. Flexion and extension gaps were well balanced. The knee was flex ed up. Lamina graduate nurse was placed both medially and laterally. Any remaining meniscus was removed us ing electrocautery. Any osteophytes posteriorly were removed with a curved osteotome. Tibial tray a nd drop erika were placed and once again confirmed a satisfactory tibial cut. A right size 6 femoral t rial was impacted onto the distal femur and had good fit. The box for the posterior stabilized impla nt was prepared using a reamer and box cut osteotome. Size 6 tibial tray trial with a 9-mm insert tri al was placed and the knee was taken through a range of motion. The knee had full extension to 130 d egrees of flexion. There was satisfactory patellofemoral tracking. The patella was everted. 9 mm of patellar bone and cartilage were carefully removed from the patella . The patella was sized to a size 35. Three peg holes were drilled through the size 35 guide. The knee was taken through a range of motion and there was satisfactory patellofemoral tracking. All tri als were carefully removed. The tibia was subluxed anteriorly and sized to a size 6. Proximal tibia was prepared using a size 6 keel punch. All bony cut surfaces were copiously irrigated with sterile saline. Final implants were cemented into place starting with the tibia followed by the femur and la stly the patella. A 9-mm insert trial was placed and the knee was brought out into full extension. Tourniquet was turned down at 55 minutes. The knee was copiously irrigated with sterile saline. Dinora ctrocautery was used to obtain meticulous hemostasis. Once the cement had fully cured, the insert tr ial was removed. Any excess cement was removed from around the capsule and hardware. Final insert c hosen was a 9-mm high flexion articular insert, which is posterior stabilized, size 5/6. This was lo cked into position on the tibial tray. Stability of the insert was checked and rechecked and noted t o be stable. The extensor mechanism was closed using interrupted #1 Vicryls over a medium Hemovac dr mcintosh. The rest of the incision was closed in a layered fashion using 0 and 2-0 Vicryls. Skin was steve sed using running 3-0 nylon suture. Sterile Xeroform, 4 x 4s, and Webril were used to cover the inci valentine. [place] wrap and cold pack were placed over this. The patient's anesthesia was reversed without difficulty and he was taken to the PACU in stable condi tion. Intended weightbearing will be weightbearing as tolerated. Intended DVT prophylaxis will be C verónicamadin with a Lovenox bridge. [id number]/[facility] #: [id number]
[2017-09-28] MEDS: oxyCODONE/Acetamin 5/325 MG* TAB PO PRN ×3 (02:06→10:21)
[2017-09-28 05:41] LABS: Hematocrit 30 % (42-52); Hemoglobin 10.4 g/dl (14.0-18.0); Mean Platelet Volume 8.1 um3 (7.4-10.4); Platelet Count 160 10^3/ul (150-450)
[2017-09-28 07:51] VITALS: BP 125/62
[2017-09-28] MEDS: Docusate CAP* 100 MG PO SCH (08:01)
[2017-09-28] MEDS: Magnesium Hydroxide LIQ* 30 ML UDC PO SCH (08:01)
[2017-09-28] MEDS: Morphine TAB Extended Release (*) 30 MG TAB.ER PO SCH (08:01)
[2017-09-28] MEDS: oxyCODONE TAB* 5 MG TAB PO PRN ×2 (08:04→12:29)
--- NOTE | 2017-09-28 08:04 | PN ---
Progress Note - Progress Note Date of Service: 09/28/17 SOAP: Subjective: POD #2 Right TKA, doing well. Pain well under control with medication. Denies CP /SOB, f/c or calf pain Objective: Vitals: Temp Pulse Resp BP Pulse Ox 98.6 F 59 16 125/62 98 18 07:35 /01/08 07:35 09/28/17 07:35 09/28/17 07:35 09/28/17 07:35 Gen: A&Ox3, NAD at rest RLE: Incision C/D/I with sutures, mild edema, no hematoma. Calf soft, NT. +f/e at ankle and MTPs, N/V intact Labs: Laboratory Results - last 24 hr 09/28/17 05:17 Hgb 10.4 L Hct 30 L Plt Count 160 MPV 8.1 Assessment: POD #2 Right TKA Plan: D/C home today Cont Morphine ER BID, alternate Percocet 5/325mg and oxycodone 5mg prn pain Cont ASA 325mg BID for DVT ppx F/u with Dr. Cates 10-14 days
[2017-09-28] MEDS: Enoxaparin(*) 30 MG/0.3 ML SYR SUBCUT SCH (12:15)
--- NOTE | 2017-09-28 17:05 | DS ---
AMENDED REPORT NOW INCLUDES COSIGNER DESIGNATION - ESIGNED BEFORE ADJUSTMENTS DISCHARGE SUMMARY: DATE OF ADMISSION: 09/26/17 DATE OF DISCHARGE: 09/28/17 PROVIDER: Dr. Michelle Cates.* (DICTATED BY CLINT FORRESTER) ADMITTING DIAGNOSIS: Severe end-stage osteoarthritis of the right knee. DISCHARGE DIAGNOSIS: Severe end-stage osteoarthritis of the right knee, status post right total knee arthroplasty. HISTORY OF PRESENT ILLNESS: Mr. Tillman is a 57-year-old gentleman followed by Dr. Cates for ongoing right knee pain. He failed conservative measures and elected to proceed with a right total knee arthroplasty. HOSPITAL COURSE: On 09/26/17, the patient was admitted to [facility] and underwent a successful right total knee arthroplasty. He recovered briefly in the postanesthesia care unit and was transferred to the short-stay surgical unit in stable condition. He did report a significant pain on postop day 1 and had difficulty participating in physical therapy. He had mild acute blood loss anemia with an H and H of 11.1 and 32. On postop day 2, the patient' s pain was well controlled with MS-Contin 30 mg b.i.d., Percocet 5/325 two tabs p.o. q.4 hours, and oxycodone 5 to 10 mg p.o. q.4 hours alternating with the Percocet. He was able to participate more with physical therapy and could ambulate independently with use of a rolling walker. On postop day 2, he was found to be stable for discharge home. His H and H was 10.4 and 30. He had no symptoms of chest pain, shortness of breath, dizziness, or lightheadedness. DISCHARGE MEDICATIONS: The patient will have: 1. Percocet 5/325 one to two tabs p.o. q.4 to 6 hours p.r.n. pain. 2. MS-Contin 30 mg p.o. b.i.d. for 5 days. 3. Oxycodone 5 mg 1 to 2 tabs p.o. q.4 to 6 hours alternating with the Percocet. 4. Colace 100 mg p.o. b.i.d. 5. Flexeril 10 mg p.o. t.i.d. p.r.n. 6. Aspirin 325 mg b.i.d. He will resume his home medications of: 1. Clomiphene citrate 25 mg p.o. q.p.m. 2. [place]-3 fatty acids/fish oil 1000 mg daily. 3. Multivitamin daily. 4. Ibuprofen 600 mg daily. DISCHARGE INSTRUCTIONS: The patient is weightbearing as tolerated with the use of a rolling walker. Wound care, he will keep his incision clean and dry until postop day 4, at that time, he may remove the dressing to shower normally and will apply dry dressing as needed. He is understanding to not submerge the incision in the bathtub, hot tub, or swimming pool. He will call the office with any calf pain, swelling, redness, or drainage from his incision. He will go directly to the emergency room with any chest pain, shortness of breath, fever greater than 101.5. He will follow up in the office 10 to [address] Ctaes. All of his questions were answered to his full satisfaction. CLINT FORRESTER [id number]/[facility] #: [id number] JESSICA
[2017-09-30] MEDS ORDERED: Scopolamine PATCH Remove* 1 NOTE MISC PATCH OFF SCH (13:00)
== END 2017-09-28 12:55 | disposition home or self-care (01) | DRG 302 ==
LOC: AA 12:06 → SSU 22:11
PROVIDERS: ADMIT Orthopaedic Surgery Adult Reconstructive Orthopaedic Surgery; ATTEND Orthopaedic Surgery Adult Reconstructive Orthopaedic Surgery
PROC: 0SRC069 Replacement of Right Knee Joint with Oxidized Zirconium on Polyethylene Synthetic Substitute, Cemented, Open Approach (ICD-10-PCS; principal; 2017-09-26 15:00)
DX: M17.11 Unilateral primary osteoarthritis, right knee (principal); D62 Acute posthemorrhagic anemia; L40.9 Psoriasis, unspecified; F41.9 Anxiety disorder, unspecified; M25.761 Osteophyte, right knee; M25.461 Effusion, right knee; Z79.82 Long term (current) use of aspirin; Z88.8 Allergy status to other drugs, medicaments and biological substances; Z82.49 Family history of ischemic heart disease and other diseases of the circulatory system; Z98.52 Vasectomy status; Z83.3 Family history of diabetes mellitus; Z87.891 Personal history of nicotine dependence; Z80.9 Family history of malignant neoplasm, unspecified; Z86.19 Personal history of other infectious and parasitic diseases
CPT/HCPCS: 36415; 80048; 85014; 85018; 85049; A9270-GY; C1776; G8987-GO-CJ; G8988-GO-CI; J0690; J1100; J1200; J1650; J2250; J2270; J2405; J2795; J3010

== ENCOUNTER 2018-11-07 12:39 | Day surgery (SDC) | payer BC ==
[~2018-11-07 12:39] MED LIST changes: -Buffered Lidocaine 0.9% SYRIN* 5 ML/SYR SYRINGE INTRADERM ONE; +Buffered Lidocaine 1% SYRIN* 1 ML/SYRINGE INTRADERM ONE; +Lactated Ringers 1000 ML Bag* 1,000 ML IV SCH
[2018-11-07] MEDS ORDERED: ceFAZolin 2 GM PREMIX in ORs 2 GM/50 ML BAG IVPB ONE (13:32)
[2018-11-07] MEDS ORDERED: Midazolam* 1 MG/ML 2 ML VIAL (2 MG) ONE (14:15)
[2018-11-07] MEDS ORDERED: Lidocaine 2% PF * 5 ML VIAL ONE ×2 (14:15→15:15)
[2018-11-07] MEDS ORDERED: Propofol* 10 MG/ML 20 ML BTL ONE (14:15)
[2018-11-07] MEDS ORDERED: Rocuronium* 10 MG/ML VIAL ONE (14:15)
[2018-11-07] MEDS ORDERED: fentaNYL* 50 MCG/ML 2 ML VIAL (100 MCG VIAL) ONE (14:16)
[2018-11-07] MEDS ORDERED: Bupivacaine 0.5% W/EPI SDV* 30 ML VIAL ONE (15:01)
[2018-11-07] MEDS ORDERED: EPINEPHRINE 1 MG/ML 1 ML VIAL ONE (15:01)
[2018-11-07] MEDS ORDERED: Midazolam* 1 MG/ML 5 ML VIAL (5 MG) ONE (15:16)
[2018-11-07] MEDS ORDERED: Dexamethasone IV* 4 MG/ML 1 ML (4 MG) ONE (15:46)
[2018-11-07] MEDS ORDERED: KETAMINE HCL* 50 MG/ML 10 ML VIAL ONE (16:08)
[2018-11-07] MEDS ORDERED: Sugammadex * 200 MG/2 ML VIAL IV PUSH ONE (16:57)
[2018-11-07] MEDS ORDERED: Acetaminophen TAB* 325 MG PO PRN (17:39)
[2018-11-07] MEDS ORDERED: DiMENhydriNATE IV* 50 MG/ML VIAL IV PUSH PRN (17:39)
[2018-11-07] MEDS ORDERED: Naloxone* 0.4 MG/ML 1 ML VIAL IV PRN (17:39)
[2018-11-07] MEDS ORDERED: oxyCODONE TAB* 5 MG TAB ONE (17:43)
[2018-11-07] MEDS ORDERED: Acetaminophen TAB* 325 MG ONE (17:44)
[2018-11-07] MEDS ORDERED: HYDROmorphone INJ1* 1 MG/ML SYRINGE ONE (17:44)
[2018-11-07] MEDS: HYDROmorphone INJ1* 1 MG/ML SYRINGE IV PRN ×4 (17:45→18:07)
[2018-11-07] MEDS: oxyCODONE TAB* 5 MG TAB PO PRN ×2 (17:53→17:55)
[2018-11-07 18:48] VITALS: BP 124/73
[2018-11-07] MEDS ORDERED: Ibuprofen TAB* 600 MG ONE (19:15)
--- NOTE | 2018-11-09 12:11 | OP ---
OPERATIVE REPORT: DATE OF OPERATION: 11/07/18 DATE OF : 56 SURGEON: Kunal Paul MD FABRIC WORKER LEADER: CLINT Schulte. A physician technical support assistant was required for the length of the procedure for assistance with patient positi oning, instrumentation, and closure. ANESTHESIOLOGIST: Dr. Nancy Zuñiga. ANESTHESIA: General anesthesia, regional interscalene block anesthesia, local anesthesia using 10 cc of Marcaine at 0.5% with epinephrine. PRE-OP DIAGNOSES: 1. Right shoulder subacromial impingement and bursitis. 2. Right shoulder acromioclavicular joint osteoarthritis. 3. Right shoulder rotator cuff tendinitis. 4. Right shoulder long head biceps tendinitis. 5. Right shoulder posterior labral tear with paralabral cyst. 6. Right shoulder possible rotator cuff tendon tear. POST-OP DIAGNOSES: 1. Right shoulder subacromial impingement and bursitis. 2. Right shoulder acromioclavicular joint osteoarthritis. 3. Right shoulder rotator cuff tendinitis without any tear. 4. Right shoulder superior labral tear and long head biceps tendinitis. 5. Right shoulder posteroinferior paralabral cyst. OPERATIVE PROCEDURE: 1. Right shoulder arthroscopic subacromial decompression. 2. Right shoulder arthroscopic distal clavicle resection. 3. Right shoulder arthroscopic limited debridement including debridement of posteroinferior paralabr al cyst, decompression as well as debridement of anteroposterior and superior labrum. 4. Right shoulder open proximal biceps tenodesis, subpectoral. ANTIBIOTICS: Ancef 2 g IV. IV FLUIDS: 800 cc of crystalloid. JBMI-VB-MSDR TIME: 69 minutes. ARTHROSCOPIC FLUID UTILIZED: Not recorded. SPECIMEN: None. IMPLANTS: Arthrex proximal biceps button, unicortical, x1. COMPLICATIONS: None. ESTIMATED BLOOD LOSS: Minimal. 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 He had a discrete fall in 08/09/18. The patient responded insufficiently to nonoperative management and opted for surgery. Multiple MRI findings as described partially above, but can be found in history and physical. The patient now opt ed for surgery. Discussed risks and potential complications, discussed a variety of treatments of ro tator cuff. DESCRIPTION OF PROCEDURE: In the preoperative holding, the patient signed a written consent. Operat shakila extremity was marked in the preoperative holding. Interscalene regional nerve block done in the p reoperative holding by Dr. Zuñiga. The patient was taken back to the operating room and placed supin e on operating room table. The patient sedated and intubated. Transferred in the lateral decubitus position. Corrales bag hardened. Axillary roll. All bony prominences padded. Longitudinal traction right shoulder. Right shoulder prepped and draped. Formal surgical time- out performed. 30 cc infused into the glenohumeral joint from posterior. Posterior glenohumeral joint portal establ ished. Diagnostic arthroscopy commenced. Anterior glenohumeral joint portal established under direc t visualization. Looking at the glenohumeral joint, the patient had some grade 3 wear on the anteriormost aspect of th e glenoid, but no clear unstable lesions of the articular cartilage. There is a clear superior manish l tear. I put an arthroscopic probe in it and it was unstable lifting up more than 5 mm. At this po int, I decided to treat the biceps tendon. I brought in an arthroscopic scissors and cut the biceps tendon close to its origin. It retracted distally. Next, moved to the rotator cuff. No subscapularis tear. No supraspinatus tear. The only abnormality was I could see several millimeters, perhaps 2, uncovered footprint. There was no associated tear o f the rotator cuff visible. Brought an arthroscopic shaver and debrided some anterior and posterior labrum. It just showed some redundant tissues in the labrum. No clear unstable tears. Likewise, I smoothed out the superior labr um with the arthroscopic shaver. With the camera or arthroscope still placed posteriorly, I localized the posteroinferior labrum and t he tissue medial and posterior to it. Using a spinal needle, under direct visualization, I establish ed an additional posterior portal and decompressed any area adjacent to the posteroinferior labrum wi th a spinal needle and then with an arthroscopic shaver and a probe, to disrupt any small paralabral cyst in that location. I probed that posterior labrum from posterior, no clear instability. I also viewed the posterior labrum through the anterior portal and made sure that nothing was missed. Removed instruments and fluids from glenohumeral joint. Moved to the subacromial space. Established anterior and posterior subacromial portals and then lateral and posterolateral portals under direct visualization. Probed rotator cuff. No visible tear. No palpable tear. Probed and viewed from mul tiple angles. Therefore, decided that no suture anchor needed. No biologic patch needed. Moved to the acromion. With an arthroscopic eloise, debrided some curve to the anterior aspect of the acromion to flatten out the undersurface of the acromion. Then, moved to AC joint. Debrided bursitic tissue with a VAPR and debrided at least 8 mm just under the clavicle with arthroscopic eloise. Removed all fluids and instruments within the subacromial space. Closed skin incisions with figure-o f-eight in 12 stitches using nylon 3-0 suture. Took the right upper extremity out of traction. Converted the patient's position to a lazy lateral, close to supine. I made anteromedial longitudinal skin incision close to the inferior aspect of the pectoralis major t endon. Dissected down the bicipital grove. Placed retractors. Removed the long head of biceps tendo n. Debrided some of the bicipital groove. Placed FiberLoop suture and then button to the biceps tend on. Used Beath pin to drill hole in the anterior cortex of the humerus. Placed button flip to tight en it and tied a knot. Used a free needle and placed a second knot. Removed excess suture and tendo n with knife. Irrigation. Closure of subcutaneous tissue with buried simple stitches using Vicryl 3 -0 suture. Closure of subcuticular layer with running stitches and Monocryl 4-0 suture. Mastisol an d Steri-Strips, 4x4 and Tegaderm to that anterior incision. Also, before I dressed that incision, I placed 10 cc of local anesthetic in the subcutaneous and deeper tissues about that incision. For the arthroscopic excisions, we used Xeroform, 4x4s, ABDs, foam tape. The patient placed in a sli ng. The patient awakened and extubated and transferred to the PACU. DISPOSITION: The patient was sent home with a prescription for Percocet to take as needed for pain c ontrol and Keflex for infection prophylaxis. The patient will follow up with me in 10 to 14 days pos toperatively. The patient will start physical therapy immediately. [id number]/[facility] #: [id number]
== END 2018-11-07 19:37 | disposition home or self-care (01) ==
LOC: OR 12:39
PROVIDERS: ATTEND Orthopaedic Surgery
DX: M75.41 Impingement syndrome of right shoulder (principal); M75.51 Bursitis of right shoulder; M19.011 Primary osteoarthritis, right shoulder; M75.81 Other shoulder lesions, right shoulder; M75.21 Bicipital tendinitis, right shoulder; G89.18 Other acute postprocedural pain
CPT/HCPCS: 88304; A9270-GY; C1776; J0690; J1100; J1170; J2250; J2704; J3010

== ENCOUNTER → 2019-03-18 | Day surgery (SDC) | payer BC ==
[~2019-03-18] MED LIST changes: +Atracurium* 10 MG/ML 10 ML VIAL ONE; +Bupivacaine 0.25% W/EPI* 10 ML SDV ONE; +Dexamethasone IV* 4 MG/ML 1 ML (4 MG) IV SLOW PU ONE; +Dexamethasone IV* 4 MG/ML 1 ML (4 MG) ONE; +DiMENhydriNATE IV* 50 MG/ML VIAL IV PUSH PRN; +EPINEPHRINE 1 MG/ML 1 ML VIAL ONE; +Famotidine IV* 10 MG/ML 2 ML (20 mg) IV ONE; +Famotidine IV* 10 MG/ML 2 ML (20 mg) ONE; +HYDROmorphone INJ1* 1 MG/ML SYRINGE ONE; +Midazolam* 1 MG/ML 5 ML VIAL (5 MG) ONE; +Naloxone* 0.4 MG/ML 1 ML VIAL IV PRN; +Ondansetron INJ* 2 MG/ML VIAL IV PRN; +Ondansetron INJ* 2 MG/ML VIAL ONE; +Propofol* 10 MG/ML 20 ML BTL ONE; +ROPIVACAINE 5 MG/ML 30 ML BTL (0.5%) ONE; +Scopolamine 1.5 mg* PATCH TRANSDERM PRN; +ceFAZolin 2 GM PREMIX in ORs 2 GM/50 ML BAG ONE; +fentaNYL* 50 MCG/ML 2 ML VIAL (100 MCG VIAL) ONE; +oxyCODONE/Acetamin 5/325 MG* TAB ONE
[2019-03-18] MEDS: fentaNYL* 50 MCG/ML 2 ML VIAL (100 MCG VIAL) IV PRN ×5 (15:12→16:06)
[2019-03-18] MEDS: oxyCODONE/Acetamin 5/325 MG* TAB PO PRN ×2 (15:24→16:33)
[2019-03-18] MEDS: HYDROmorphone INJ1* 1 MG/ML SYRINGE IV PRN ×2 (15:47→16:21)
[2019-03-18 16:56] VITALS: BP 144/97
--- NOTE | 2019-03-19 04:17 | OP ---
DATE OF OPERATION: 03/18/19 - [facility] DATE OF : 56 SURGEON: Kunal Paul MD. FUEL EFFICIENT AUTOMOBILE DESIGNER: CLINT Geller. A physician prosthetic assistant was required for the length of the procedure for assistance with patient positioning, retraction, instrumentation, and closure. ANESTHESIOLOGIST: Dr. Corral. ANESTHESIA: General anesthesia, regional interscalene block anesthesia, local anesthesia using 10 cc of Marcaine 0.25% with epinephrine placed about the biceps open incision. PRE-OP DIAGNOSES: 1. Left shoulder rotator cuff tendinitis. 2. Left shoulder acromioclavicular joint osteoarthritis, subacromial bursitis, subacromial impingement. 3. Left shoulder superior labrum tear and posterior labrum tear. POST-OP DIAGNOSES: 1. Left shoulder rotator cuff tendon tear, low grade, partial thickness, bursal sided. 2. Left shoulder humeral head bare area adjacent to infraspinatus, possible Hill- Sachs lesion, possible undersurface, chronic rotator cuff tendon tear. 3. Left shoulder rotator cuff tendinitis. 4. Left shoulder acromioclavicular joint osteoarthritis, subacromial bursitis, subacromial impingement. 5. Left shoulder superior labrum tear. OPERATIVE PROCEDURE: 1. Left shoulder arthroscopic rotator cuff repair with Regeneten biologic patch. 2. Left shoulder arthroscopic subacromial decompression. 3. Left shoulder arthroscopic distal clavicle resection. 4. Left shoulder open proximal biceps tenodesis, subpectoral. ANTIBIOTICS: Ancef 2 g IV. IV FLUIDS: See anesthesia note. CAXK-SJ-EHIL TIME: 85 minutes. SPECIMEN: None. IMPLANTS: [employer]os [employer]hew Regeneten biologic patch, size medium, x1. Arthrex proximal biceps tenodesis button x1. COMPLICATIONS: None. ESTIMATED BLOOD LOSS: Minimal. INDICATIONS: The patient is a 58-year-old man, in whom I performed contralateral right shoulder surgery in October 2018, who persisted in having left shoulder pain. He has performed the full spectrum of nonoperative management on that left shoulder without relief and opted for surgery. Discussed all the appropriate risks and potential complications of surgery. DESCRIPTION OF PROCEDURE: In the preoperative holding, the patient signed a written consent. Operative extremity was marked in preoperative holding. Regional interscalene nerve block performed in preoperative holding. The patient was taken back to the operating room, placed supine on the operating room table, sedated and intubated. The patient transferred to the lateral decubitus position with the left shoulder up. Axillary roll placed. Corrales bag hardened. All bony prominences padded. Appropriate longitudinal traction left shoulder. Left shoulder prepped and draped. Surgical time-out performed. 30 cc of normal saline injected into the shoulder joint from posterior. Arthroscopic posterior glenohumeral joint portal established. Started diagnostic arthroscopy. No loose bodies. No subscapularis tendon tear. Clear superior labrum tear was present. The patient had a large bare area on the undersurface of the infraspinatus. It was in the location of the normal physiologic bare area, it was just much larger than it typically is. It was not deep but just whacked articular cartilage in that location or any rotator cuff tendon. It was not clear to me whether this was a Hill-Sachs impaction fracture, chronic where the patient had lost some infraspinatus insertion. It is slightly more likely that it was the Hill- Sachs but adjacent just lateral to this area, there appeared to be some weakness of the rotator cuff as well when I probed it minutes later, also when I debrided it with an arthroscopic shaver. No other tear in the supraspinatus or elsewhere noted. Established an anterior glenohumeral joint portal under direct visualization. Probed the superior labrum. There was a labral tear that allowed me to lift the labrum up at least [address] an arthroscopic scissors to cut the biceps at its origin. I again worked at the bony lesion and shaved it with some undersurface of adjacent infraspinatus and it appeared somewhat weak. I placed a spinal needle through that tissue to tee it. I moved to the subacromial space. Established anterior, posterior, and then lateral portals. Debrided a significant amount of bursitic tissue with an arthroscopic shaver. Localized the spinal needle. There was no partial sided tear in that location. Debrided a significant amount of bursitic tissue with arthroscopic shaver. There were some small, several millimeter, 1 to 2 mm tears in bursal side of the supraspinatus and infraspinatus, hard to distinguish between tendinosis. I decided that I would use a patch. I next proceeded to arthroscopic decompression. I used a bur to smooth out and flatten out the undersurface at the anterior aspect of the acromion. I next obtained the Regeneten biologic patch size medium. I made a new portal slightly more distal and posterior from my lateral portal and entered the patch. I put it into place with multiple bioabsorbable PLLA amanda. The graft was stable with movement of the humerus. I placed it more posterior than I typically do because I wanted to cover some of the infraspinatus and the supraspinatus because I was concerned more about the under-surface of the infraspinatus and I was concerned more about the bursal side of the supraspinatus. I next moved to the AC joint, debrided synovitic tissue with an electrocautery device. I then debrided 8 mm of the distal end of clavicle with an arthroscopic bur. I also removed some of the medial acromion on that side of the AC joint. I did that with the bur as well. Removed instruments and fluid from the subacromial space. Closed the skin incisions with [id number] 12 stitches using nylon 3-0 suture. I removed the arm from traction and moved the patient into a nearly supine position. I made a skin incision and dissected down to bicipital groove. I removed the tendon. I prepared bone. Placed Beath pin unicortically. I placed 3 stitches in the long head of the biceps tendon with a FiberLoop stitch. I loaded the button. Passed above and then tied a knot. I tied a second knot. Cut the suture ends in the long head biceps tendon stump proximally. Irrigation. Closure of the subcutaneous tissue with buried simple stitches using Vicryl 3-0 suture. Subcuticular closure using a running stitches and Monocryl 3-0 suture. Mastisol, Steri-Strips, 4x4, Tegaderm. For arthroscopic skin incisions, I closed with Xeroform, 4x4s, ABD, foam tape. Sling and abduction pillow provided. The patient was awakened, extubated, and transferred to the PACU. DISPOSITION: Wound care instructions provided. The patient will start physical therapy immediately. Keflex for 7 days and Percocet as needed for pain control. The patient will follow up with me in 10 to 14 days postoperatively. [id number]/CPS #: [id number] JESSICA
== END | disposition home or self-care (01) ==
LOC: OR 09:19
PROVIDERS: ATTEND Orthopaedic Surgery
DX: S46.011A Strain of muscle(s) and tendon(s) of the rotator cuff of right shoulder, initial encounter (principal); M75.41 Impingement syndrome of right shoulder; M19.011 Primary osteoarthritis, right shoulder; M75.22 Bicipital tendinitis, left shoulder; M75.51 Bursitis of right shoulder; X50.9XXA Other and unspecified overexertion or strenuous movements or postures, initial encounter; Y92.9 Unspecified place or not applicable; G89.18 Other acute postprocedural pain; Z87.891 Personal history of nicotine dependence
CPT/HCPCS: A9270-GY; C1713; C1776; J0690; J1100; J1170; J2250; J2405; J2704; J2795; J3010

== ENCOUNTER 2019-08-09 10:11 | Emergency (ER) | payer BC ==
--- OUTSIDE RECORDS SUMMARY | 2019-08-09 11:52 | XMS REPORT | Continuity of Care Document ---
:1960 External Reference #:[id number] Author Name Michelle Cates M.D. (transmitted by agent of provider Cindy Ghosh) Address [address] [place] [address] [place] [address] Care Team Providers Name Role Phone Lila Cardona MD - Internal Care Team Information [facility] Work[facility] Shira Jenkins MD - Internal Care Team Information [facility] Problems Active Problems Provider Date Psoriasis Shira Jenkins M.D. Onset: 05/26/2010 Ganglion of hand Zhang Irvin MD Onset: 05/16/2016 Carpal tunnel syndrome of left wrist Zhang rIvin MD Onset: 05/16/2016 Bilateral carpal tunnel syndrome Zhang Irvin MD Onset: 08/21/2016 Current tear of medial cartilage AND/OR Michelle Cates M.D. Onset: 03/06/2017 meniscus of knee Snapping thumb syndrome Zhang Irvin MD Onset: 04/30/2017 Localized, primary osteoarthritis Michelle Cates M.D. Onset: 07/08/2017 Arthroplasty of knee Michelle Cates M.D. Onset: 10/07/2017 Aftercare following joint replacement Michelle Cates M.D. Onset: 10/07/2017 surgery Knee joint effusion Michelle Cates M.D. Onset: 07/21/2018 Strain of rotator cuff capsule Michelle Cates M.D. Onset: 08/18/2018 Glenoid labrum tear Michelle Cates M.D. 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 Rehab in 2012 Smoking Status Reviewed: 06/29/19 Patient is a former smoker Exercise Type/Frequency Exercises regularly Allergies, Adverse Reactions, Alerts Active Allergies Reaction Severity Comments Date Niaspan HIVES Moderate 08/12/2009 Lanolin severe fatigue Moderate 07/03/2010 Medications Active Medications SIG Qnty Indications Ordering Provider Date Atorvastatin Calcium Take 1/2 Tablet 30tabs Z82.49 Shira Jenkins, 05/20 By Mouth Every M.D. 10mg Tablets Day Amoxicillin take 4 pills, 2 g 4caps Michelle Cates, 11/11/2017 500mg 1 hour before M.D. Capsules dental or gi procedure Motrin taking 6-8 per Shira Jenkins, 07/03/2010 200mg Tablets day M.D. Tylenol prn Unknown 325mg Tablets Clomid 1/2 tablet daily Rolan Diaz, 50mg Tablets Fluocinonide twice a day as 30units Unknown 0.05% needed rash Cream Multivitamin Adults once a day Unknown 50+ Adlt 50+ Tablets Fish Oil 1 tab by mouth Unknown 1000mg every morning Capsules Glucosamine qd Unknown Chondroitin 1500 Complex 1500Com Capsules History Medications Oxycodone HCL 1 tab by mouth every 30tabs Kunal Nguyen 03/23/2019 - 5mg 6 hours as needed for [facility]to 06/08/2019 Tablets breakthrough pain in addition to percocet 5/325 Oxycodone-Acetamino 1-2 tabs by mouth 42tabs Kunal Nguyen 03/18/2019 - phen every 4-6 hours as [facility] 06/08/2019 5-325mg needed for pain Tablets Cephalexin take 1 tablet by 21tabs Kunal 03/18/2019 - 500mg mouth every 8 hours [facility] 06/08/2019 Tablets for 7 days Medications Administered in Office Medication SIG Qnty Indications Ordering Provider Date Depomedrol 40MG Michelle Cates M.D. 05/18/2019 Injection Depomedrol 40MG Kunal Paul MD 04/28/2019 Injection Depomedrol 40MG Kunal Paul MD 12/22/2018 Injection Depomedrol 40MG Michelle Caets M.D. 11/24/2018 Injection Depomedrol 40MG Kunal Paul MD 09/09/2018 Injection Celestone 3 mg and 3mg Zhang Irvin MD 08/08/2018 Injection Depomedrol 40MG Michelle Cates M.D. 07/21/2018 Injection Celestone 3 mg and 3mg Zhang Irvin MD 07/04/2018 Injection Synvisc Or Synvisc-One Michelle Cates M.D. 07/22/2017 Injection 1 MG Injection Synvisc Or Synvisc-One Michelle Cates M.D. 07/15/2017 Injection 1 MG Injection Synvisc Or Synvisc-One Michelle Cates M.D. 07/08/2017 Injection 1 MG Injection Celestone 3 mg and 3mg Zhang Irvin MD 04/30/2017 Injection Celestone 3 mg and 3mg Urszula Jacobsen, 10/19/2010 Injection MMelyDMely Celestone 3 mg and 3mg Urszula Jacobsen, 07/12/2010 Injection MMelyDMely Immunizations CPT Code Status Date Vaccine Lot # [id number] Given 03/07/2018 Influenza Virus Vaccine, Quadrivalent, Split, Preservative Free 63617 Given 02/22/2017 Influenza Virus Vaccine, Quadrivalent, Split, Preservative Free 08860 Given 05/10/2016 Tetanus And Diptheria (Td) For Adult Use [id number] Preservative Free 21651 Given 03/20/2015 Influenza Virus Vaccine, Quadrivalent, Split, Preservative Free [id number] Given 04/07/2014 Afluria Vaccine 83613 Given 04/07/2013 Flu Vaccine Split Virus Preservative Free For [id number] Indiv 3Yr Older 57908 Given 12/14/2011 Zoster (Zostavax) [id number] 24254 Given 06/02/2009 Influenza Virus 3Yrs & Over 19285 Given 06/10/2006 Tdap - Tetanus/Diptheria/Acellular Pertussis [id number] 00270 Given 06/10/2006 Tdap - Tetanus/Diptheria/Acellular Pertussis 78239 Given 06/10/2006 Influenza Virus 3Yrs & Over 45782 Given 06/10/2006 Influenza Virus 3Yrs & Over Vital Signs Date Vital Result Comment 06/29/2019 8:53am Height 69 inches 5'9" Weight 197.00 lb Heart Rate 71 /min BP Systolic 150 mmHg BP Diastolic 72 mmHg Body Temperature 97.6 F Pain Level 1 BMI (Body Mass Index) 29.1 kg/m2 06/09/2019 8:30am Height 69 inches 5'9" Weight 197.00 lb BP Systolic 119 mmHg R Arm BP Diastolic 64 mmHg R Arm Respiratory Rate 16 /min Pain Level 1 BMI (Body Mass Index) 29.1 kg/m2 Results Test Acquired Date Facility Test Result H/L Range Note Laboratory test 06/15/2019 [facility] PSA Diagnostic 0.636 Normal 0-4.[address] ng/[place] [address] [phone] CBC Auto Diff 02/24/2019 [facility] White Blood 8.7 Normal 3.5 -10.[address] Count 10^3/[place] [address] [phone] Red Blood Count 4.50 10^6/uL Normal 4.18-5.48 Hemoglobin 14.4 g/dL Normal 14.0-18.0 Hematocrit 41 % Low 42-52 Mean Corpuscular Volume 92 fL Normal 80-94 Mean Corpuscular Hemoglobin 32 pg High 27-31 Mean Corpuscular HGB Conc 35 g/dL Normal 31-36 Red Cell Distribution Width 13 % Normal 10-15 Platelet Count 210 10^3/uL Normal 150-450 Mean Platelet Volume 8.6 fL Normal 7.4-10.4 Abs Neutrophils 4.4 10^3/uL Normal 1.5-7.7 Abs Lymphocytes 3.1 10^3/uL Normal 1.0-4.8 Abs Monocytes 0.8 10^3/uL Normal 0-0.8 Abs Eosinophils 0.2 10^3/uL Normal 0-0.6 Abs Basophils 0.1 10^3/uL Normal 0-0.2 Abs Nucleated RBC 0.0 10^3/uL Granulocyte % 51.0 % Lymphocyte % 36.2 % Monocyte % 9.2 % Eosinophil % 2.8 % Basophil % 0.8 % Nucleated Red Blood Cells % 0.0 Basic Metabolic 02/24/2019 [facility] Sodium 138 mmol/L Normal 135-[address] [place] [address] [phone] Potassium 4.5 mmol/L Normal 3.5-5.0 Chloride 103 mmol/L Normal 101-111 Co2 Carbon Dioxide 30 mmol/L Normal 22-32 Anion Gap 5 mmol/L Normal 2-11 Glucose 97 mg/dL Normal 70-100 Blood Urea Nitrogen 22 mg/dL Normal 6-24 Creatinine 1.01 mg/dL Normal 0.67-1.17 BUN/Creatinine Ratio 21.8 High 8-20 Calcium 9.3 mg/dL Normal 8.6-10.3 Egfr Non- 75.4 >60 Egfr 91.2 >60 1 Order 02/24/2019 [facility] In-House EKG Results given to 1 Because ethnic data is not always [...] Kidney failure <15 (or dialysis) Procedures Date Code Description Status 05/18/2019 Inject/Drain Joint/Bursa Major W/O US Completed 04/28/2019 Inject/Drain Joint/Bursa Major W/O US Completed 03/18/2019 64167 Arthroscopy Shoulder,W/Rotator Cuff Repair Completed 03/18/2019 44342 Arthroscopy Shoulder,W/Rotator Cuff Repair Completed 03/18/2019 96687 Arthroscopy,Shoulder Decompression Of Subacromial Space Completed W/Acromio 03/18/2019 45151 Arthroscopy,Shoulder Decompression Of Subacromial Space Completed W/Acromio 03/18/2019 28999 Arthroscopy,Shoulder,Distal Claviculectomy Incl Dist Completed Articular SR 03/18/2019 74483 Arthroscopy,Shoulder,Distal Claviculectomy Incl Dist Completed Articular SR 03/18/2019 84436 Tenodesis Biceps Long Tendon Completed 03/18/2019 68202 Tenodesis Biceps Long Tendon Completed 02/24/2019 90498 EKG Tracing & Interpretation Completed 07/24/2018 09907665 Colonoscopy Completed 09/01/2009 62282034 Colonoscopy Completed Medical Devices Description No Information Available Encounters Type Date Location Provider Dx Diagnosis Office Visit 02/24/2019 [facility] Internal Ziggy Vaughn MD Z01.810 Encounter for 9:40a Medicine - Suite preprocedural R cardiovascular examination M75.42 Impingement syndrome of left shoulder M25.562 Pain in left knee Office Visit 02/17/2019 3:00p Maegan Nguyen M75.41 Impingement Orthopedics at [facility] syndrome of right [place] shoulder M75.51 Bursitis of right shoulder M75.82 Other shoulder lesions, left shoulder M75.42 Impingement syndrome of left shoulder M75.52 Bursitis of left shoulder M19.011 Primary osteoarthritis, right shoulder Office Visit 02/02/2019 1:15p [facility] Kunal Nguyen M75.51 Bursitis of at Ryan Paul MD right shoulder M75.41 Impingement syndrome of right shoulder S46.011A Strain of musc/tend the rotator cuff of right shoulder, init S46.012D Strain of musc/tend the rotator cuff of left shoulder, subs M75.42 Impingement syndrome of left shoulder M75.52 Bursitis of left shoulder M75.82 Other shoulder lesions, left shoulder Assessments Date Code Description Provider 06/29/2019 M25.562 Pain in left knee Michelle Cates M.D. 06/29/2019 M25.462 Effusion, left knee Michelle Cates M.D. 06/29/2019 M17.12 Unilateral primary osteoarthritis, left Michelle Cates M.D. knee 06/09/2019 M75.42 Impingement syndrome of left shoulder Kunal Paul MD 06/09/2019 M75.112 Incomplete rotator cuff tear or rupture of Kunal Paul MD left shoulder, not specified as traumatic 06/09/2019 Z47.89 Encounter for other orthopedic aftercare Kunal Paul MD 05/18/2019 M25.562 Pain in left knee Michelle Cates M.D. 05/18/2019 M25.462 Effusion, left knee Michelle Cates M.D. 05/18/2019 M17.12 Unilateral primary osteoarthritis, left Michelle Cates M.D. knee 04/28/2019 M75.42 Impingement syndrome of left shoulder Kunal Paul MD 04/28/2019 Z47.89 Encounter for other orthopedic aftercare Kunal Paul MD 04/28/2019 M75.112 Incomplete rotator cuff tear or rupture of Kunal Paul MD left shoulder, not specified as traumatic 04/28/2019 M75.82 Other shoulder lesions, left shoulder Kunal Paul MD 03/31/2019 M75.42 Impingement syndrome of left shoulder Kunal Paul MD 03/31/2019 Z47.89 Encounter for other orthopedic aftercare Kunal Paul MD 03/18/2019 M75.112 Incomplete rotator cuff tear or rupture of Kunal Paul MD left shoulder, not specified as traumatic 03/18/2019 M75.112 Incomplete rotator cuff tear or rupture of CLINT Geller left shoulder, not specified as traumatic 03/18/2019 M75.82 Other shoulder lesions, left shoulder Kunal Paul MD 03/18/2019 M75.82 Other shoulder lesions, left shoulder CLINT Geller 03/18/2019 M19.012 Primary osteoarthritis, left shoulder Kunal Paul MD 03/18/2019 M19.012 Primary osteoarthritis, left shoulder CLINT Geller 03/18/2019 M75.52 Bursitis of left shoulder Kunal Paul MD 03/18/2019 M75.52 Bursitis of left shoulder CLINT Geller 03/18/2019 M75.42 Impingement syndrome of left shoulder Kunal Paul MD 03/18/2019 M75.42 Impingement syndrome of left shoulder CLINT Geller 03/18/2019 S43.432A Superior glenoid labrum lesion of left Kunal Paul MD shoulder, initial encounter 03/18/2019 S43.432A Superior glenoid labrum lesion of left CLINT Geller shoulder, initial encounter 02/24/2019 Z01.810 Encounter for preprocedural cardiovascular Ziggy Vaughn MD examination 02/24/2019 M75.42 Impingement syndrome of left shoulder Ziggy Vaughn MD 02/24/2019 M25.562 Pain in left knee Ziggy Vaughn MD 02/17/2019 M75.41 Impingement syndrome of right shoulder Kunal Paul MD 02/17/2019 M75.51 Bursitis of right shoulder Kunal Paul MD 02/17/2019 M75.82 Other shoulder lesions, left shoulder Kunal Paul MD 02/17/2019 M75.42 Impingement syndrome of left shoulder Kunal Paul MD 02/17/2019 M75.52 Bursitis of left shoulder Kunal Paul MD 02/17/2019 M19.011 Primary osteoarthritis, right shoulder Kunal Paul MD 02/02/2019 M75.51 Bursitis of right shoulder Kunal Paul MD 02/02/2019 M75.41 Impingement syndrome of right shoulder Kunal Paul MD 02/02/2019 S46.011A Strain of muscle(s) and tendon(s) of the Kunal Paul MD rotator cuff of rig 02/02/2019 S46.012D Strain of muscle(s) and tendon(s) of the Kunal Paul MD rotator cuff of left shoulder, subsequent encounter 02/02/2019 M75.42 Impingement syndrome of left shoulder Kunal Paul MD 02/02/2019 M75.52 Bursitis of left shoulder Kunal Paul MD 02/02/2019 M75.82 Other shoulder lesions, left shoulder Kunal Paul MD Plan of Treatment Future Appointment(s):07/21/2019 8:30 am - Kunal Paul MD at [facility] at [id number]/15/2019 11:00 am - Shira Jenkins M.D. at [facility] Internal Medicine - [facility]06/29/2019 - Michelle Cates M.D.M25.562 Pain in left kneeNew Xrays:Knee Left 4+ VWS, Ordered: 06/29/19Follow up:Follow up: once Synvisc 3 approved for left kneeM25.462 Effusion, left kneeM17.12 Unilateral primary osteoarthritis, left knee Functional Status Description No Information Available Mental Status Description No Information Available Referrals Description No Information Available
--- OUTSIDE RECORDS SUMMARY | 2019-08-09 11:52 | XMS REPORT | Continuity of Care Document ---
:1960 External Reference #:[id number] Author Name Michelle Cates M.D. (transmitted by agent of provider Cindy Ghosh) Address [address] [place] [address] [place] [address] Care Team Providers Name Role Phone Lila Cardona MD - Internal Care Team Information [employer] [phone] Medicine Shira Jenkins MD - Internal Care Team Information [employer] [phone] Medicine Problems Active Problems Provider Date Psoriasis Shira Jenkins M.D. Onset: 05/26/2010 Ganglion of hand Zhang Irvin MD Onset: 05/16/2016 Carpal tunnel syndrome of left wrist Zhang Irvin MD Onset: 05/16/2016 Bilateral carpal tunnel syndrome [...] heroin. Rehab in 2012 Smoking Status Reviewed: 08/05/19 Patient is a former smoker Exercise Type/Frequency [...] Cephalexin take 1 tablet by 21tabs Kunal Nguyen 03/18/2019 - 500mg mouth every 8 hours MD Humberto 06/08/2019 Tablets for 7 days Medications Administered in Office Medication SIG Qnty Indications Ordering Provider Date Synvisc Or Synvisc-One Michelle Cates M.D. 07/29/2019 Injection 1 MG Injection Synvisc Or Synvisc-One Michelle Cates M.D. 07/22/2019 Injection 1 MG Injection Depomedrol 40MG Michelle Cates M.D. 05/18/2019 Injection Depomedrol 40MG Kunal Paul MD 04/28/2019 Injection Depomedrol 40MG Kunal Paul MD 12/22/2018 Injection Depomedrol 40MG Michelle Cates M.D. 11/24/2018 Injection Depomedrol 40MG Kunal Paul [...] CPT Code Status Date Vaccine Lot # [id number] Given 03/07/2018 Influenza Virus Vaccine, Quadrivalent, Split, Preservative Free 36924 Given 02/22/2017 Influenza Virus Vaccine, Quadrivalent, Split, Preservative Free 59940 Given 05/10/2016 Tetanus And Diptheria (Td) For Adult Use [id number] Preservative Free 07685 Given 03/20/2015 Influenza Virus Vaccine, Quadrivalent, Split, Preservative Free Q2035 Given 04/07/2014 Afluria Vaccine 30942 Given 04/07/2013 Flu Vaccine Split Virus Preservative Free For [id number] Indiv 3Yr Older 14493 Given 12/14/2011 Zoster (Zostavax) [id number] 80854 Given 06/02/2009 Influenza Virus 3Yrs & Over 34166 Given 06/10/2006 Tdap - Tetanus/Diptheria/Acellular Pertussis [id number] 69951 Given 06/10/2006 Tdap - Tetanus/Diptheria/Acellular Pertussis 25880 Given 06/10/2006 Influenza Virus 3Yrs & Over 06001 Given 06/10/2006 Influenza Virus 3Yrs & Over Vital Signs Date Vital Result Comment 08/05/2019 9:42am Height 69 inches 5'9" Weight 196.00 lb Heart Rate 60 /min BP Systolic 120 mmHg BP Diastolic 60 mmHg Respiratory Rate 18 /min Pain Level 1 BMI (Body Mass Index) 28.9 kg/m2 07/29/2019 8:11am Height 69 inches 5'9" Weight 196.00 lb Heart Rate 56 /min BP Systolic Sitting 130 mmHg BP Diastolic Sitting 72 mmHg Respiratory Rate 14 /min Pain Level 2 BMI (Body Mass Index) 28.9 kg/m2 Results Test Acquired Date Facility Test Result H/L Range Note Laboratory test 06/15/2019 [facility] PSA Diagnostic 0.636 Normal 0-4.[address] ng/[place] [address] [phone] CBC Auto Diff 02/24/2019 [facility] White Blood 8.7 Normal 3.5 -10.[address] Count 10^3/[place] [address] [phone] Red Blood Count 4.50 10^6/uL Normal 4.18-5.48 [...] Blood Cells % 0.0 Basic Metabolic 02/24/2019 [facility] Sodium 138 mmol/L Normal 135-[address] [place] [address] [phone] Potassium 4.5 mmol/L Normal 3.5-5.0 Chloride 103 mmol/L Normal 101-111 Co2 Carbon Dioxide 30 mmol/L Normal 22-32 Anion Gap 5 mmol/L Normal 2-11 Glucose 97 mg/dL Normal 70-100 Blood Urea Nitrogen 22 mg/dL Normal 6-24 Creatinine 1.01 mg/dL Normal 0.67-1.17 BUN/Creatinine Ratio 21.8 High 8-20 Calcium 9.3 mg/dL Normal 8.6-10.3 Egfr Non- 75.4 >60 Egfr 91.2 >60 1 Order 02/24/2019 [facility] In-House EKG Results given to 1 [...] (or dialysis) Procedures Date Code Description Status 08/05/2019 Inject/Drain Joint/Bursa Major W/O US Completed 07/29/2019 Inject/Drain Joint/Bursa Major W/O US Completed 07/22/2019 Inject/Drain Joint/Bursa Major W/O US Completed 05/18/2019 Inject/Drain Joint/Bursa Major W/O US Completed 04/28/2019 Inject/Drain Joint/Bursa Major W/O US Completed 03/18/2019 37420 Arthroscopy Shoulder,W/Rotator Cuff Repair Completed 03/18/2019 53663 Arthroscopy Shoulder,W/Rotator Cuff Repair Completed 03/18/2019 04987 Arthroscopy,Shoulder Decompression Of Subacromial Space Completed W/Acromio 03/18/2019 06125 Arthroscopy,Shoulder Decompression Of Subacromial Space Completed W/Acromio 03/18/2019 69291 Arthroscopy,Shoulder,Distal Claviculectomy Incl Dist Completed Articular SR 03/18/2019 28560 Arthroscopy,Shoulder,Distal Claviculectomy Incl Dist Completed Articular SR 03/18/2019 38256 Tenodesis Biceps Long Tendon Completed 03/18/2019 14014 Tenodesis Biceps Long Tendon Completed 02/24/2019 88705 EKG Tracing & Interpretation Completed 07/24/2018 32207220 Colonoscopy Completed 09/01/2009 90446748 Colonoscopy Completed Medical Devices Description No Information Available Encounters Type Date Location Provider Dx Diagnosis Office Visit 07/29/2019 [facility] Dermatology AT Kunal Turpin L40.0 Psoriasis 11:00a Luther Schaffer DO vulgaris Office Visit 07/21/2019 [facility] Kunal Nguyen M75.112 Incomplete 8:30a at [facility] Paul MD rotatr-cuff tear/ruptr of l shoulder, not trauma Z47.89 Encounter for other orthopedic aftercare Office Visit 06/29/2019 9:15a [facility] Michelle Cates, M25.562 Pain in left at [place] Alix knee M25.462 Effusion, left knee M17.12 Unilateral primary osteoarthritis, left knee Office Visit 02/24/2019 9:40a [facility] Internal Ziggy Vaughn, Z01.810 Encounter for Medicine - preprocedural Suite R cardiovascular examination M75.42 Impingement syndrome of left shoulder M25.562 Pain in left knee Office Visit 02/17/2019 3:00p Maegan Nguyen M75.41 Impingement Orthopedics at [facility] syndrome of right [place] shoulder M75.51 Bursitis of right shoulder M75.82 Other shoulder lesions, left shoulder M75.42 Impingement syndrome of left shoulder M75.52 Bursitis of left shoulder M19.011 Primary osteoarthritis, right shoulder Assessments Date Code Description Provider 08/05/2019 M25.562 Pain in left knee MichelleAlok Díaz.D. 08/05/2019 M25.462 Effusion, left knee Michellejessica Cates M.D. 08/05/2019 M17.12 Unilateral primary osteoarthritis, left Michellejessica Cates M.D. knee 07/29/2019 L40.0 Psoriasis vulgaris Dread Mane MD 07/29/2019 L40.0 Psoriasis vulgaris Kunal Schaffer DO 07/29/2019 M25.562 Pain in left knee Michellejessica Cates M.D. 07/29/2019 M25.462 Effusion, left knee Alok Carty.D. 07/29/2019 M17.12 Unilateral primary osteoarthritis, left Michellejessica Cates M.D. knee 07/22/2019 M25.562 Pain in left knee Michellejessica Cates M.D. 07/22/2019 M25.462 Effusion, left knee Michelle Cates M.D. 07/22/2019 M17.12 Unilateral primary osteoarthritis, left MichelleJolene DíazD. knee 07/21/2019 M75.112 Incomplete rotator cuff tear or rupture Kunal Paul MD of left shoulder, not specified as traumatic 07/21/2019 Z47.89 Encounter for other orthopedic aftercare Kunal Paul MD 06/29/2019 M25.562 Pain in left knee Alok Carty.D. 06/29/2019 M25.462 Effusion, left knee Michelle Cates M.D. 06/29/2019 M17.12 Unilateral primary osteoarthritis, left Michelle Cates M.D. knee 06/09/2019 M75.42 Impingement syndrome of left shoulder Kunal Paul MD 06/09/2019 M75.112 Incomplete rotator cuff tear or rupture Kunal Paul MD of left shoulder, not specified as traumatic 06/09/2019 [...] M75.112 Incomplete rotator cuff tear or rupture Kunal Paul MD of left shoulder, not specified as traumatic 04/28/2019 M75.82 Other shoulder lesions, left shoulder Kunal Paul MD 03/31/2019 M75.42 Impingement syndrome of left shoulder Kunal Paul MD 03/31/2019 Z47.89 Encounter for other orthopedic aftercare Kunal Paul MD 03/18/2019 M75.112 Incomplete rotator cuff tear or rupture Kunal Paul MD of left shoulder, not specified as traumatic 03/18/2019 M75.112 Incomplete rotator cuff tear or rupture CLINT Geller of left shoulder, not specified as traumatic 03/18/2019 [...] initial encounter 02/24/2019 Z01.810 Encounter for preprocedural Ziggy Vaughn MD cardiovascular examination 02/24/2019 M75.42 Impingement syndrome of left [...] Primary osteoarthritis, right shoulder Kunal Paul MD Plan of Treatment Future Appointment(s):09/22/2019 8:30 am - Kunal Paul MD at [facility] at Jwnodx4109/15/2019 11:00 am - Shira Jenkins M.D. at [facility] Internal Medicine - [facility]08/05/2019 - Michelle Cates M.D.M25.562 Pain in left kneeFollow up:Follow up: As lieepvZ48.462 Effusion, left kneeM17.12 Unilateral primary osteoarthritis, left knee Functional Status Description No Information Available Mental Status Description No Information Available Referrals Description No Information Available
--- OUTSIDE RECORDS SUMMARY | 2019-08-09 11:52 | XMS REPORT | Continuity of Care Document ---
:1960 External Reference #:[id number] Author Name Michelle Cates M.D. (transmitted by agent of provider Mackenzie Sheikh) Address [address] [facility] [place] [address] Care Team Providers Name Role Phone Lila Cardona MD - Internal Care Team Information [employer] [phone] Medicine Shira Jenkins MD - Internal Care Team Information [employer] Medicine Problems Active Problems Provider Date Psoriasis [...] Onset: 10/07/2017 surgery Knee joint effusion Michelle Caets M.D. Onset: 07/21/2018 Strain of rotator cuff [...] heroin. Rehab in 2012 Smoking Status Reviewed: 07/22/19 Patient is a former smoker Exercise Type/Frequency [...] 1/2 tablet daily Rolan Diaz, 50mg Tablets Fluocincale twice a day as 30units Unknown 0.05% [...] CPT Code Status Date Vaccine Lot # [id number] Given 03/07/2018 Influenza Virus Vaccine, Quadrivalent, Split, Preservative Free 71919 Given 02/22/2017 Influenza Virus Vaccine, Quadrivalent, Split, Preservative Free 20257 Given 05/10/2016 Tetanus And Diptheria (Td) For Adult Use [id number] Preservative Free 76017 Given 03/20/2015 Influenza Virus Vaccine, Quadrivalent, Split, Preservative Free Q2035 Given 04/07/2014 Afluria Vaccine 75435 Given 04/07/2013 Flu Vaccine Split Virus Preservative Free For [id number] Indiv 3Yr Older 16058 Given 12/14/2011 Zoster (Zostavax) [id number] 95893 Given 06/02/2009 Influenza Virus 3Yrs & Over 33722 Given 06/10/2006 Tdap - Tetanus/Diptheria/Acellular Pertussis [id number] 73103 Given 06/10/2006 Tdap - Tetanus/Diptheria/Acellular Pertussis 56998 Given 06/10/2006 Influenza Virus 3Yrs & Over 03980 Given 06/10/2006 Influenza Virus 3Yrs & Over Vital Signs Date Vital Result Comment 07/22/2019 8:20am Height 69 inches 5'9" Weight 197.00 lb Heart Rate 73 /min BP Systolic 138 mmHg BP Diastolic 78 mmHg Body Temperature 96.8 F Pain Level 0 BMI (Body Mass Index) 29.1 kg/m2 07/21/2019 8:27am Height 69 inches 5'9" Weight 197.00 lb Heart Rate 68 /min BP Systolic 142 mmHg BP Diastolic 78 mmHg Respiratory Rate 18 /min O2 % BldC Oximetry 99 % BMI (Body Mass Index) 29.1 kg/m2 Results Test Acquired Date Facility Test Result H/L Range Note Laboratory test 06/15/2019 [facility] PSA Diagnostic 0.636 Normal 0-4.[address] ng/[place] [address] [phone] CBC Auto Diff 02/24/2019 [facility] White Blood 8.7 Normal 3.5 -10.[address] Count 10^3/[place] [address] [phone] Red Blood Count 4.50 10^6/uL Normal 4.18-5.48 [...] Blood Cells % 0.0 Basic Metabolic 02/24/2019 [facility] Sodium 138 mmol/L Normal 135-[address] [place] [address] [phone] Potassium 4.5 mmol/L Normal 3.5-5.0 Chloride 103 mmol/L Normal 101-111 Co2 Carbon Dioxide 30 mmol/L Normal 22-32 Anion Gap 5 mmol/L Normal 2-11 Glucose 97 mg/dL Normal 70-100 Blood Urea Nitrogen 22 mg/dL Normal 6-24 Creatinine 1.01 mg/dL Normal 0.67-1.17 BUN/Creatinine Ratio 21.8 High 8-20 Calcium 9.3 mg/dL Normal 8.6-10.3 Egfr Non- 75.4 >60 Egfr 91.2 >60 1 Order 02/24/2019 [facility] In-House EKG Results given to 1 Because [...] (or dialysis) Procedures Date Code Description Status 07/22/2019 Inject/Drain Joint/Bursa Major W/O US Completed 05/18/2019 Inject/Drain Joint/Bursa Major W/O US Completed 04/28/2019 Inject/Drain Joint/Bursa Major W/O US Completed 03/18/2019 37145 Arthroscopy Shoulder,W/Rotator Cuff Repair Completed 03/18/2019 81389 Arthroscopy Shoulder,W/Rotator Cuff Repair Completed 03/18/2019 02256 Arthroscopy,Shoulder Decompression Of Subacromial Space Completed W/Acromio 03/18/2019 07040 Arthroscopy,Shoulder Decompression Of Subacromial Space Completed W/Acromio 03/18/2019 23248 Arthroscopy,Shoulder,Distal Claviculectomy Incl Dist Completed Articular SR 03/18/2019 91143 Arthroscopy,Shoulder,Distal Claviculectomy Incl Dist Completed Articular SR 03/18/2019 74012 Tenodesis Biceps Long Tendon Completed 03/18/2019 44258 Tenodesis Biceps Long Tendon Completed 02/24/2019 56064 EKG Tracing & Interpretation Completed 07/24/2018 [id number] Colonoscopy Completed 09/01/2009 [id number] Colonoscopy Completed Medical Devices Description No Information Available Encounters Type Date Location Provider Dx Diagnosis Office Visit 06/29/2019 [facility] Michelle Cates, M25.562 Pain in left knee 9:15a at [facility] [place] M25.462 Effusion, left knee M17.12 Unilateral primary osteoarthritis, left knee Office Visit 02/24/2019 9:40a [facility] Internal Ziggy Vaughn, Z01.810 Encounter for Medicine - preprocedural Suite R cardiovascular examination M75.42 Impingement syndrome of left shoulder M25.562 Pain in left knee Office Visit 02/17/2019 3:00p Maegan Nguyen M75.41 Impingement Orthopedics at [facility] [place] syndrome of right [place] shoulder M75.51 Bursitis of right shoulder M75.82 Other shoulder lesions, left shoulder M75.42 Impingement syndrome of left shoulder M75.52 Bursitis of left shoulder M19.011 Primary osteoarthritis, right shoulder Office Visit 02/02/2019 1:15p [facility]75.51 Bursitis of at Ryan Paul MD right shoulder M75.41 Impingement syndrome of right shoulder S46.011A Strain of musc/tend the rotator cuff of right shoulder, init S46.012D Strain of musc/tend the rotator cuff of left shoulder, subs M75.42 Impingement syndrome of left shoulder M75.52 Bursitis of left shoulder M75.82 Other shoulder lesions, left shoulder Assessments Date Code Description Provider 07/22/2019 M25.562 Pain in left knee Michelle Cates M.D. 07/22/2019 M25.462 Effusion, left knee Michelle Cates M.D. 07/22/2019 M17.12 Unilateral primary osteoarthritis, left Michelle Cates M.D. knee 07/21/2019 M75.112 Incomplete rotator cuff tear or rupture of Kunal Paul MD left shoulder, not specified as traumatic 06/29/2019 M25.562 Pain in left knee Michelle [...] rotator cuff tear or rupture of Kunal aPul MD left shoulder, not specified as traumatic [...] 8:30 am - Kunal Paul MD at [facility] at Lkrvlt4008/05/2019 9:45 am - Michelle Cates M.D. at [facility] at Namhvz1207/29/2019 8:30 am - Michelle Cates M.D. at [facility] at Gsnpsa6609/15/2019 11:00 am - Shira Jenkins M.D. at [facility] Internal Medicine - [facility]07/22/2019 - Michelle Cates M.D.M25.562 Pain in left kneeFollow up:Follow up: 1 weekM25.462 Effusion, left kneeM17.12 Unilateral primary osteoarthritis, left knee Functional Status Description No Information Available Mental Status Description No Information Available Referrals Description No Information Available
--- OUTSIDE RECORDS SUMMARY | 2019-08-09 11:52 | XMS REPORT | Continuity of Care Document ---
:1960 External Reference #:[id number] Author Name Kunal Paul MD (transmitted by agent of provider Nathalie Wells) Address [address] [place] [address] Care Team Providers Name Role Phone Lila Cardona MD - Internal Care Team Information [employer] [phone] Medicine Shira Jenkins MD - Internal Care Team Information [employer] [phone] Medicine Problems Active Problems Provider Date Psoriasis [...] heroin. Rehab in 2012 Smoking Status Reviewed: 07/21/19 Patient is a former smoker Exercise Type/Frequency [...] Injection Celestone 3 mg and 3mg Urszula Hartley-Lee, 10/19/2010 Injection MMelyD. Celestone 3 mg and 3mg Urszula Hartley-Lee, 07/12/2010 Injection MMelyDMely Immunizations CPT Code Status Date Vaccine Lot # [id number] Given 03/07/2018 Influenza Virus Vaccine, Quadrivalent, Split, Preservative Free 41039 Given 02/22/2017 Influenza Virus Vaccine, Quadrivalent, Split, Preservative Free 51906 Given 05/10/2016 Tetanus And Diptheria (Td) For Adult Use [id number] Preservative Free 93554 Given 03/20/2015 Influenza Virus Vaccine, Quadrivalent, Split, Preservative Free Q2035 Given 04/07/2014 Afluria Vaccine 43354 Given 04/07/2013 Flu Vaccine Split Virus Preservative Free For [id number] Indiv 3Yr Older 57041 Given 12/14/2011 Zoster (Zostavax) [id number] 73596 Given 06/02/2009 Influenza Virus 3Yrs & Over 34465 Given 06/10/2006 Tdap - Tetanus/Diptheria/Acellular Pertussis [id number] 52548 Given 06/10/2006 Tdap - Tetanus/Diptheria/Acellular Pertussis 66938 Given 06/10/2006 Influenza Virus 3Yrs & Over 77426 Given 06/10/2006 Influenza Virus 3Yrs & Over Vital Signs Date Vital Result Comment 07/21/2019 8:27am Height 69 inches 5'9" Weight 197.00 lb Heart Rate 68 /min BP Systolic 142 mmHg BP Diastolic 78 mmHg Respiratory Rate 18 /min O2 % BldC Oximetry 99 % BMI (Body Mass Index) 29.1 kg/m2 06/29/2019 8:53am Height 69 inches 5'9" Weight 197.00 lb Heart Rate 71 /min BP Systolic 150 mmHg BP Diastolic 72 mmHg Body Temperature 97.6 F Pain Level 1 BMI (Body Mass Index) 29.1 kg/m2 Results Test Acquired Date Facility Test Result H/L Range Note Laboratory test 06/15/2019 [facility] PSA Diagnostic 0.636 Normal 0-4.[address] ng/[place] [address] [phone] CBC Auto Diff 02/24/2019 [facility] White Blood 8.7 Normal 3.5 -10.[address] Count 10^3/[place] [address] [phone] Red Blood Count 4.50 10^6/uL Normal 4.18-5.48 [...] Blood Cells % 0.0 Basic Metabolic 02/24/2019 [facility] Sodium 138 mmol/L Normal 135-[address] [place] [address] [phone] Potassium 4.5 mmol/L Normal 3.5-5.0 Chloride 103 mmol/L Normal 101-111 Co2 Carbon Dioxide 30 mmol/L Normal 22-32 Anion Gap 5 mmol/L Normal 2-11 Glucose 97 mg/dL Normal 70-100 Blood Urea Nitrogen 22 mg/dL Normal 6-24 Creatinine 1.01 mg/dL Normal 0.67-1.17 BUN/Creatinine Ratio 21.8 High 8-20 Calcium 9.3 mg/dL Normal 8.6-10.3 Egfr Non- 75.4 >60 Egfr 91.2 >60 1 Order 02/24/2019 [facility] In-House EKG Results given to 1 [...] Inject/Drain Joint/Bursa Major W/O US Completed 03/18/2019 18177 Arthroscopy Shoulder,W/Rotator Cuff Repair Completed 03/18/2019 08193 Arthroscopy Shoulder,W/Rotator Cuff Repair Completed 03/18/2019 35948 Arthroscopy,Shoulder Decompression Of Subacromial Space Completed W/Acromio 03/18/2019 74053 Arthroscopy,Shoulder Decompression Of Subacromial Space Completed W/Acromio 03/18/2019 57957 Arthroscopy,Shoulder,Distal Claviculectomy Incl Dist Completed Articular SR 03/18/2019 72092 Arthroscopy,Shoulder,Distal Claviculectomy Incl Dist Completed Articular SR 03/18/2019 44523 Tenodesis Biceps Long Tendon Completed 03/18/2019 07935 Tenodesis Biceps Long Tendon Completed 02/24/2019 96905 EKG Tracing & Interpretation Completed 07/24/2018 71434651 Colonoscopy Completed 09/01/2009 [id number] Colonoscopy Completed Medical Devices Description No Information Available Encounters Type Date Location Provider Dx Diagnosis Office Visit 06/29/2019 [facility] Michelle Cates, M25.562 Pain in left knee 9:15a at [facility] [place] M25.462 Effusion, left knee M17.12 Unilateral primary osteoarthritis, left knee Office Visit 02/24/2019 9:40a [facility] Internal Ziggy Vaughn, Z01.810 Encounter for Medicine - preprocedural Suite R cardiovascular examination M75.42 Impingement syndrome of left shoulder M25.562 Pain in left knee Office Visit 02/17/2019 3:00p [facility] Kunal Nguyen M75.41 Impingement Orthopedics at [facility] [place] syndrome of right [place] shoulder M75.51 Bursitis of right shoulder M75.82 Other shoulder lesions, left shoulder M75.42 Impingement syndrome of left shoulder M75.52 Bursitis of left shoulder M19.011 Primary osteoarthritis, right shoulder Office Visit 02/02/2019 1:15p [facility] Kunal Nguyen M75.51 Bursitis of at Ryan Paul MD right shoulder M75.41 Impingement syndrome of right shoulder S46.011A Strain of musc/tend the rotator cuff of right shoulder, init S46.012D Strain of musc/tend the rotator cuff of left shoulder, subs M75.42 Impingement syndrome of left shoulder M75.52 Bursitis of left shoulder M75.82 Other shoulder lesions, left shoulder Assessments Date Code Description Provider 07/21/2019 M75.112 Incomplete rotator cuff tear or [...] 8:30 am - Kunal Paul MD at [facility] at Zwqauk1408/05/2019 9:45 am - Michelle Cates M.D. at [facility] at Nbowvo2307/29/2019 8:30 am - Michelle Cates M.D. at [facility] at Nzldhk8007/22/2019 8:30 am - Michelle Cates M.D. at [facility] at Sgmtsf2409/15/2019 11:00 am - Shira Jenkins M.D. at [facility] Internal Medicine - [facility]07/21/2019 - Kunal Paul, MDM75.112 Incomplete rotator cuff tear or rupture of left shoulder, not specified as traumaticFollow up:Follow up: 2 months Functional Status Description No Information Available Mental Status Description No Information Available Referrals Description No Information Available
--- OUTSIDE RECORDS SUMMARY | 2019-08-09 11:52 | XMS REPORT | Continuity of Care Document ---
:1960 External Reference #:[id number] Author Name Michelle Cates M.D. (transmitted by agent of provider Mackenzie Sheikh) Address [address] [facility] [place] [address] Care Team Providers Name Role Phone Lila Cardona MD - Internal Care Team Information Guidance And Control System Engineer Medicine Shira Jenkins MD - Internal Care Team Information Guidance And Control System Engineer [phone] Medicine Problems Active Problems Provider Date Psoriasis [...] heroin. Rehab in 2012 Smoking Status Reviewed: 07/29/19 Patient is a former smoker Exercise Type/Frequency [...] Oxycodone-Acetamino 1-2 tabs by mouth 42tabs Kunal 03/18/2019 - phen every 4-6 hours as [...] MMelyDMely Celestone 3 mg and 3mg Urszula Hartley-Lee, 07/12/2010 Injection M.DMely Immunizations CPT Code Status Date Vaccine Lot # [id number] Given 03/07/2018 Influenza Virus Vaccine, Quadrivalent, Split, Preservative Free [id number] Given 02/22/2017 Influenza Virus Vaccine, Quadrivalent, Split, Preservative Free 81408 Given 05/10/2016 Tetanus And Diptheria (Td) For Adult Use [id number] Preservative Free 64173 Given 03/20/2015 Influenza Virus Vaccine, Quadrivalent, Split, Preservative Free [id number] Given 04/07/2014 Afluria Vaccine [id number] Given 04/07/2013 Flu Vaccine Split Virus Preservative Free For [id number] Indiv 3Yr Older 42226 Given 12/14/2011 Zoster (Zostavax) [id number] 38191 Given 06/02/2009 Influenza Virus 3Yrs & Over 42391 Given 06/10/2006 Tdap - Tetanus/Diptheria/Acellular Pertussis [id number] 16093 Given 06/10/2006 Tdap - Tetanus/Diptheria/Acellular Pertussis 55119 Given 06/10/2006 Influenza Virus 3Yrs & Over 51286 Given 06/10/2006 Influenza Virus 3Yrs & Over Vital Signs Date Vital Result Comment 07/29/2019 8:11am Height 69 inches 5'9" Weight 196.00 lb Heart Rate 56 /min BP Systolic Sitting 130 mmHg BP Diastolic Sitting 72 mmHg Respiratory Rate 14 /min Pain Level 2 BMI (Body Mass Index) 28.9 kg/m2 07/22/2019 8:20am Height 69 inches 5'9" Weight 197.00 lb Heart Rate 73 /min BP Systolic 138 mmHg BP Diastolic 78 mmHg Body Temperature 96.8 F Pain Level 0 BMI (Body Mass Index) 29.1 kg/m2 Results Test Acquired Date Facility Test Result H/L Range Note Laboratory test 06/15/2019 [facility] PSA Diagnostic 0.636 Normal 0-4.[address] ng/[place] [address] [phone] CBC Auto Diff 02/24/2019 [facility] White Blood 8.7 Normal 3.5 -10.[address] Count 10^3/[place] [address] [phone] Red Blood Count 4.50 10^6/uL Normal 4.18-5.48 [...] Blood Cells % 0.0 Basic Metabolic 02/24/2019 [facility] Sodium 138 mmol/L Normal 135-[address] [place] [address] [phone] Potassium 4.5 mmol/L Normal 3.5-5.0 Chloride 103 mmol/L Normal 101-111 Co2 Carbon Dioxide 30 mmol/L Normal 22-32 Anion Gap 5 mmol/L Normal 2-11 Glucose 97 mg/dL Normal 70-100 Blood Urea Nitrogen 22 mg/dL Normal 6-24 Creatinine 1.01 mg/dL Normal 0.67-1.17 BUN/Creatinine Ratio 21.8 High 8-20 Calcium 9.3 mg/dL Normal 8.6-10.3 Egfr Non- 75.4 >60 Egfr 91.2 >60 1 Order 02/24/2019 [facility] In-House EKG Results given to 1 Because [...] (or dialysis) Procedures Date Code Description Status 07/29/2019 Inject/Drain Joint/Bursa Major W/O US Completed 07/22/2019 Inject/Drain Joint/Bursa Major W/O US Completed 05/18/2019 Inject/Drain Joint/Bursa Major W/O US Completed 04/28/201900562 Inject/Drain Joint/Bursa Major W/O US Completed 03/18/2019 21065 Arthroscopy Shoulder,W/Rotator Cuff Repair Completed 03/18/2019 49154 Arthroscopy Shoulder,W/Rotator Cuff Repair Completed 03/18/2019 28539 Arthroscopy,Shoulder Decompression Of Subacromial Space Completed W/Acromio 03/18/2019 10912 Arthroscopy,Shoulder Decompression Of Subacromial Space Completed W/Acromio 03/18/2019 10592 Arthroscopy,Shoulder,Distal Claviculectomy Incl Dist Completed Articular SR 03/18/2019 29533 Arthroscopy,Shoulder,Distal Claviculectomy Incl Dist Completed Articular SR 03/18/2019 73433 Tenodesis Biceps Long Tendon Completed 03/18/2019 24205 Tenodesis Biceps Long Tendon Completed 02/24/2019 63550 EKG Tracing & Interpretation Completed 07/24/2018 32808822 Colonoscopy Completed 09/01/2009 59829027 Colonoscopy Completed Medical Devices Description No Information Available Encounters Type Date Location Provider Dx Diagnosis Office Visit 06/29/2019 [facility] Michelle Cates, M25.562 Pain in left knee 9:15a at [facility] M25.462 Effusion, left knee M17.12 Unilateral primary osteoarthritis, left knee Office Visit 02/24/2019 9:40a [facility] Internal Ziggy Vaughn, Z01.810 Encounter for Medicine - preprocedural [address] cardiovascular examination M75.42 Impingement syndrome of left shoulder M25.562 Pain in left knee Office Visit 02/17/2019 3:00p Maegan Mcclure.41 Impingement Orthopedics at [facility] syndrome of right [place] shoulder M75.51 Bursitis of right shoulder M75.82 Other shoulder lesions, left shoulder M75.42 Impingement syndrome of left shoulder M75.52 Bursitis of left shoulder M19.011 Primary osteoarthritis, right shoulder Office Visit 02/02/2019 1:15p Maegan Dickinson75.51 Bursitis of at [facility] right shoulder M75.41 Impingement syndrome of right shoulder S46.011A Strain of musc/tend the rotator cuff of right shoulder, init S46.012D Strain of musc/tend the rotator cuff of left shoulder, subs M75.42 Impingement syndrome of left shoulder M75.52 Bursitis of left shoulder M75.82 Other shoulder lesions, left shoulder Assessments Date Code Description Provider 07/29/2019 M25.562 Pain in left knee Michellejessica Cates, M.D. 07/29/2019 M25.462 Effusion, left knee Michellejessica Cates M.D. 07/29/2019 M17.12 Unilateral primary osteoarthritis, left Michelle Cates M.D. knee 07/22/2019 M25.562 Pain in left knee Michellejessica Cates M.D. 07/22/2019 M25.462 Effusion, left knee Michellejessica Cates M.D. 07/22/2019 M17.12 Unilateral primary osteoarthritis, [...] 8:30 am - Kunal Paul MD at [facility] at [id number]/05/2019 9:45 am - Michelle Cates M.D. at [facility] at [id number]/15/2019 11:00 am - Shira Jenkins M.D. at [facility] Internal Medicine - [facility]07/29/2019 - Michelle Cates M.D.M25.562 Pain in left kneeFollow up:Follow up: 1 weekM25.462 Effusion, left kneeM17.12 Unilateral primary osteoarthritis, left knee Functional Status Description No Information Available Mental Status Description No Information Available Referrals Description No Information Available
[2019-08-09 12:04] VITALS: BP 130/66
--- NOTE | 2019-08-09 12:14 | UC ---
Throat Pain/Nasal Vadim HPI - HPI Summary HPI Summary: about 6 weeks agopatient had what he thought was the flu---he now has continuing right side frontal headaches---hurts worse when he bends forward--- - History of Current Complaint Chief Complaint: Emmanuel Stated Complaint: SINUS HEADACHE Time Seen by Provider: 08/09/19 12:01 Hx Obtained From: Patient Onset/Duration: Gradual Onset, Lasting Weeks Pain Intensity: 2 Pain Scale Used: 0-10 Numeric Cough: Nonproductive Associated Signs & Symptoms: Positive: Sinus Discomfort, Fever - Allergies/Home Medications Allergies/Adverse Reactions: Allergies Allergy/AdvReac Type Severity Reaction Status Date / Time lanolin Allergy Intermediate Rash Verified 03/18/19 09:48 niacin Allergy Intermediate Rash Verified 03/18/19 09:48 PMH/Surg Hx/FS Hx/Imm Hx Endocrine History: Dyslipidemia Other History Of: Hepatitis B, Hepatitis C - Surgical History Surgical History: Yes Surgery Procedure, Year, and Place: 5 hernia surgeries 1961 THROUGH 1992,. left testicle removed-NERVE ENTRAPMENT [address] DR. SPAULDING;. appy 1978;. THUMB surgery LEFT 1979;. 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 micro surgical denervation [address] SPAULDING. 6 cryoablation surgerys at [facility] [id number];. vasectomy 2005;. left carpal tunnel, 05/2016;. RIGHT CARPAL TUNNEL 09/2016. RIGHT KNEE REPLACED 01/26/18. RIGHT SHOULDER BICEPTS; - Family History Known Family History: Positive: Cardiac Disease, Hypertension, Diabetes - Social History Occupation: Employed Full-time Lives: With Family Alcohol Use: None Substance Use Type: None Substance Use Comment - Amount & Last Used: PAST Smoking Status (MU): Former Smoker Amount Used/How Often: 2 PPD Have You Smoked in the Last Year: No When Did the Patient Quit Smoking/Using Tobacco: 2012 - Immunization History Most Recent Influenza Vaccination: 2017 Most Recent Pneumonia Vaccination: unknown Review of Systems All Other Systems Reviewed And Are Negative: Yes Constitutional: Positive: Fever Skin: Positive: Negative Eyes: Positive: Negative ENT: Positive: Sinus Congestion, Sinus Pain/Tenderness Respiratory: Positive: Cough Cardiovascular: Positive: Negative Gastrointestinal: Positive: Negative Genitourinary: Positive: Negative Motor: Positive: Negative Neurovascular: Positive: Negative Musculoskeletal: Positive: Negative Neurological/Mental Status: Positive: Negative Psychological: Positive: Negative Is Patient Immunocompromised?: No Physical Exam Triage Information Reviewed: Yes Appearance: Well-Appearing, No Pain Distress, Well-Nourished Vital Signs: Initial Vital Signs Temp 99.0 F 08/09/19 11:58 Pulse 57 08/09/19 11:58 Resp 18 08/09/19 11:58 BP 130/66 08/09/19 11:58 Pulse Ox 98 08/09/19 11:58 Vital Signs Reviewed: Yes Eye Exam: Normal Eyes: Positive: Conjunctiva Clear, Other: - perrla, eomi ENT Exam: Normal ENT: Positive: Normal ENT inspection, Hearing grossly normal, Pharynx normal, TMs normal, Sinus tenderness - maxillary and right frontal. Negative: Nasal congestion, Nasal drainage, Tonsillar swelling, Tonsillar exudate, Trismus, Muffled voice, Hoarse voice, Dental tenderness Dental Exam: Normal Neck exam: Normal Neck: Positive: Supple Respiratory Exam: Normal Respiratory: Positive: Chest non-tender, Lungs clear, Normal breath sounds, No respiratory distress, No accessory muscle use Cardiovascular Exam: Normal Cardiovascular: Positive: RRR, No Murmur, Pulses Normal, Brisk Capillary Refill Musculoskeletal Exam: Normal Musculoskeletal: Positive: Strength Intact, ROM Intact, No Edema Neurological Exam: Normal Neurological: Positive: Alert, Muscle Tone Normal Psychological Exam: Normal Skin Exam: Normal Throat Pain/Nasal Course/Dx - Course Course Of Treatment: increase fluids, avoid antihistamines---sudafed and mucolytics may be helpful-- augmentin flonase follow with pcp prn - Differential Dx/Diagnosis Provider Diagnosis: Sinusitis, acute Discharge ED - Sign-Out/Discharge Documenting (check all that apply): Patient Departure All imaging exams completed and their final reports reviewed: No Studies - Discharge Plan Condition: Stable Disposition: HOME Prescriptions: Amoxicillin/Clavulanate TAB* [Augmentin TAB 875*] 875 mg PO BID 10 Days #20 tab Fluticasone NASAL SPRAY 50MCG* [Flonase NASAL SPRAY 50MCG*] 2 spray BOTH NARES DAILY #1 btl Patient Education Materials: Sinusitis (ED), How to Use Nasal [place] (ED) Referrals: Shira Jenkins MD [Primary Care Provider] - If Needed - Billing Disposition and Condition Condition: STABLE Disposition: Home
== END 2019-08-09 12:20 | disposition home or self-care (01) ==
LOC: UCCORT 10:11
DX: J01.10 Acute frontal sinusitis, unspecified (principal); J01.00 Acute maxillary sinusitis, unspecified; Z88.8 Allergy status to other drugs, medicaments and biological substances; Z87.891 Personal history of nicotine dependence
CPT/HCPCS: 99212; G0463

== ENCOUNTER 2022-03-19 05:49 | Observation (INO) ==
[~2022-03-19 05:49] MED LIST changes: -Atracurium* 10 MG/ML 10 ML VIAL ONE; -Buffered Lidocaine 1% SYRIN* 1 ML/SYRINGE INTRADERM ONE; -Bupivacaine 0.25% W/EPI* 10 ML SDV ONE; -Dexamethasone IV* 4 MG/ML 1 ML (4 MG) IV SLOW PU ONE; -Dexamethasone IV* 4 MG/ML 1 ML (4 MG) ONE; -DiMENhydriNATE IV* 50 MG/ML VIAL IV PUSH PRN; -EPINEPHRINE 1 MG/ML 1 ML VIAL ONE; -Famotidine IV* 10 MG/ML 2 ML (20 mg) IV ONE; -Famotidine IV* 10 MG/ML 2 ML (20 mg) ONE; -HYDROmorphone INJ1* 1 MG/ML SYRINGE ONE; -Lactated Ringers 1000 ML Bag* 1,000 ML IV SCH; -Midazolam* 1 MG/ML 5 ML VIAL (5 MG) ONE; +Naloxone 0.4 mg VIAL 0.4 mg/ml 1 ml VIAL IV PRN; -Naloxone* 0.4 MG/ML 1 ML VIAL IV PRN; +Ondansetron 4 mg VIAL 2 MG/ML 2 ml VIAL IV PRN; -Ondansetron INJ* 2 MG/ML VIAL IV PRN; -Ondansetron INJ* 2 MG/ML VIAL ONE; -Propofol* 10 MG/ML 20 ML BTL ONE; -ROPIVACAINE 5 MG/ML 30 ML BTL (0.5%) ONE; -Scopolamine 1.5 mg* PATCH TRANSDERM PRN; -ceFAZolin 2 GM PREMIX in ORs 2 GM/50 ML BAG ONE; -fentaNYL* 50 MCG/ML 2 ML VIAL (100 MCG VIAL) ONE; -oxyCODONE/Acetamin 5/325 MG* TAB ONE
[2022-03-19] MEDS ORDERED: Lactated Ringers 1000 ml BAG 1,000 ML IV SCH ×2 (06:00→11:00)
[2022-03-19] MEDS ORDERED: Buffered Lidocaine 1% SYRIN 1 ml INTRADERM ONE (06:00)
[2022-03-19] MEDS ORDERED: ceFAZolin 2 GM PREMIX 2 GM/50 ML BAG ONE (06:09)
[2022-03-19] MEDS ORDERED: Lidocaine 1% w EPI 1:200,000 SDV 30 ML VIAL ONE (07:08)
[2022-03-19] MEDS ORDERED: Gelfoam Sponge SIZE 100 SPONGE ONE (07:09)
[2022-03-19] MEDS ORDERED: Thrombin 5,000 UNITS 1 APPLIC KIT - topical use - TOPICAL ONE (07:09)
[2022-03-19] MEDS ORDERED: Rocuronium 50 mg VIAL 10 mg/ml 5 ml VIAL (50 mg) ONE (07:32)
[2022-03-19] MEDS ORDERED: fentaNYL 100 mcg/2 ml 50 MCG/ML VIAL ONE ×5 (07:33→11:22)
[2022-03-19] MEDS ORDERED: ceFAZolin VIAL VIAL ONE (08:13)
[2022-03-19] MEDS ORDERED: Dexamethasone IV 4 MG/ML VIAL 1 ml VIAL ONE (08:42)
[2022-03-19] MEDS ORDERED: Ondansetron 4 mg VIAL 2 MG/ML 2 ml VIAL ONE (08:42)
[2022-03-19] MEDS: fentaNYL 100 mcg/2 ml 50 MCG/ML VIAL IV PRN ×5 (09:50→11:26)
[2022-03-19] MEDS ORDERED: Ondansetron 4 mg VIAL 2 MG/ML 2 ml VIAL IV PRN (10:02)
[2022-03-19] MEDS ORDERED: Fluticasone NASAL SPRAY 50MCG 16 gm SPRAY BTL INTRANASAL PRN (10:09)
[2022-03-19] MEDS ORDERED: oxyCODONE/Acetamin 5/325 mg TAB ONE (10:43)
[2022-03-19] MEDS: oxyCODONE/Acetamin 5/325 mg TAB PO PRN ×4 (10:44→22:50)
[2022-03-20] MEDS: Calcium Carb (TUMS) 500 mg CHEW TAB PO PRN ×3 (01:43→12:35)
[2022-03-20] MEDS: oxyCODONE/Acetamin 5/325 mg TAB PO PRN ×2 (05:55→12:17)
[2022-03-20] MEDS ORDERED: Aspirin EC 81 mg TAB.EC (enteric coated) PO SCH (09:00)
[2022-03-20 11:29] VITALS: BP 157/89
== END 2022-03-20 12:40 | disposition home or self-care (01) ==
LOC: SSU 05:49 → OR 05:49
PROVIDERS: ADMIT Neurological Surgery; ATTEND Neurological Surgery

== ENCOUNTER 2022-03-27 08:23 | Inpatient (IN) ==
[2022-03-27] MEDS ORDERED: diazePAM INJ CARPUJECT 5 MG/ML SYRINGE IV ONE (08:54)
[2022-03-27 09:29] LABS: Hematocrit 39 % (42-52); Hemoglobin 12.9 g/dL (14.0-18.0); Mean Corpuscular HGB Conc 33 g/dL (31-36); Mean Corpuscular Hemoglobin 30 pg (27-31); Mean Corpuscular Volume 92 fL (80-94); Mean Platelet Volume 7.7 fL (7.4-10.4); Platelet Count 224 10^3/uL (150-450); Red Blood Count 4.26 10^6 /uL (4.18-5.48); Red Cell Distribution Width 13 % (10-15); White Blood Count 18.4 10^3/uL (3.5-10.8)
[2022-03-27] MEDS ORDERED: Morphine 4 MG/ML VIAL (1 ml) IV ONE (09:36)
[2022-03-27] MEDS ORDERED: Piperacillin/Tazobac ADVAN 3.375 GM in NS 0.9% 100 ml BAG 100 ML IV ONE (09:37)
[2022-03-27] MEDS ORDERED: NS 0.9% 1000 ml BAG 1,000 ML IV ONE (09:40)
[2022-03-27] MEDS ORDERED: HYDROmorphone 0.5 MG/0.5 ML SYRINGE IV ONE (10:15)
[2022-03-27 10:16] LABS: Albumin/Globulin Ratio 1.5 (1-3); C Reactive Protein 72.25 mg/L (<8.01); Calcium 8.9 mg/dL (8.6-10.3); Globulin 2.7 g/dL (2-4); Potassium 3.8 mmol/L (3.5-5.0); Total Bilirubin 0.6 mg/dL (0.2-1.0); Total Protein 6.7 g/dL (6.4-8.9); eGFR CKD-EPI 96.3 (>60)
[2022-03-27] MEDS ORDERED: Vancomycin 1500 MG IV - x ONCE IVPB ONE (10:30)
[2022-03-27] MEDS ORDERED: Ondansetron 4 mg VIAL 2 MG/ML 2 ml VIAL IV ONE ×2 (10:33→12:30)
[2022-03-27 10:42] LABS: ABS Basophils 0.1 10^3/ul (0-0.2); ABS Lymphocytes 1.3 10^3/ul (1.0-4.8); ABS Monocytes 1.9 10^3/ul (0-0.8); Lymphocyte % 6.9 %
[2022-03-27] MEDS ORDERED: Vancomycin per Pharmacy 1 EA NOTE FOLLOW UP SCH (12:00)
[2022-03-27] MEDS: NS 0.9% 1000 ml BAG 1,000 ML IV SCH (14:58)
[2022-03-27] MEDS ORDERED: Acetaminophen IV 1 GM/100ML 1,000 MG/100 ML BAG IV ONE (16:14)
[2022-03-27] MEDS: HYDROmorphone 1 MG/1 ML SYRINGE IV SLOW PU PRN ×2 (17:15→21:48)
[2022-03-27] MEDS: Prochlorperazine 5 mg/ml 2 ml VIAL (10 mg) IV PRN (18:21)
[2022-03-27] MEDS ORDERED: cefTRIAXone 1 gm/50 mL D5W 1 GM/50 ML BAG IV SCH (21:00)
[2022-03-27] MEDS: Ondansetron 4 mg VIAL 2 MG/ML 2 ml VIAL IV PRN (21:48)
[2022-03-27] MEDS: Vancomycin 1,250 MG in NS 0.9% 250 ml 250 ML IVPB SCH (23:30)
[2022-03-28] MEDS: Prochlorperazine 5 mg/ml 2 ml VIAL (10 mg) IV PRN ×2 (01:19→07:41)
[2022-03-28] MEDS: Acetaminophen IV 1 GM/100ML 1,000 MG/100 ML BAG IV PRN ×2 (01:30→13:20)
[2022-03-28] MEDS: HYDROmorphone 1 MG/1 ML SYRINGE IV SLOW PU PRN ×5 (02:31→19:41)
[2022-03-28] MEDS: Ondansetron 4 mg VIAL 2 MG/ML 2 ml VIAL IV PRN ×5 (02:31→22:13)
[2022-03-28] MEDS: NS 0.9% 1000 ml BAG 1,000 ML IV SCH ×2 (04:55→18:05)
[2022-03-28 06:52] LABS: Hematocrit 34 % (42-52); Hemoglobin 11.4 g/dL (14.0-18.0); Mean Corpuscular HGB Conc 34 g/dL (31-36); Mean Corpuscular Hemoglobin 31 pg (27-31); Mean Corpuscular Volume 92 fL (80-94); Platelet Count 170 10^3/uL (150-450); Red Blood Count 3.67 10^6 /uL (4.18-5.48); Red Cell Distribution Width 14 % (10-15)
[2022-03-28 06:58] LABS: ABS Lymphocytes 1.1 10^3/ul (1.0-4.8); ABS Monocytes 1.7 10^3/ul (0-0.8); ABS Neutrophils 13.2 10^3/ul (1.5-7.7); Lymphocyte % 6.9 %
[2022-03-28 07:40] LABS: eGFR CKD-EPI 98.7 (>60)
[2022-03-28] MEDS: Vancomycin 1,250 MG in NS 0.9% 250 ml 250 ML IVPB SCH (10:52)
[2022-03-28] MEDS ORDERED: Gadoteridol (CONTRAST) 279.3 MG/ML 10 ML IV ONE (20:40)
[2022-03-28] MEDS ORDERED: cefTRIAXone 2 gm/50 mL D5W 2 GM/50 ML BAG IV SCH (21:00)
[2022-03-29] MEDS: Vancomycin 1,250 MG in NS 0.9% 250 ml 250 ML IVPB SCH ×2 (00:25→12:26)
[2022-03-29] MEDS: HYDROmorphone 1 MG/1 ML SYRINGE IV SLOW PU PRN ×3 (03:44→08:18)
[2022-03-29 06:46] LABS: ABS Lymphocytes 1.1 10^3/ul (1.0-4.8); ABS Monocytes 1.3 10^3/ul (0-0.8); ABS Neutrophils 9.9 10^3/ul (1.5-7.7); Eosinophil % 0.1 %; Hematocrit 33 % (42-52); Lymphocyte % 9.2 %; Mean Corpuscular HGB Conc 34 g/dL (31-36); Mean Corpuscular Hemoglobin 31 pg (27-31); Mean Corpuscular Volume 91 fL (80-94); Mean Platelet Volume 8.4 fL (7.4-10.4); Platelet Count 187 10^3/uL (150-450); Red Blood Count 3.58 10^6 /uL (4.18-5.48); Red Cell Distribution Width 13 % (10-15); White Blood Count 12.4 10^3/uL (3.5-10.8)
[2022-03-29 07:14] LABS: Calcium 7.7 mg/dL (8.6-10.3); Potassium 3.5 mmol/L (3.5-5.0); eGFR CKD-EPI 102.2 (>60)
[2022-03-29] MEDS: Ondansetron 4 mg VIAL 2 MG/ML 2 ml VIAL IV PRN (07:53)
[2022-03-29] MEDS ORDERED: Vancomycin Trough Check NOTE FOLLOW UP ONE (10:30)
[2022-03-29] MEDS: HYDROmorphone 0.5 MG/0.5 ML SYRINGE IV SLOW PU PRN ×3 (10:52→20:30)
[2022-03-29] MEDS: Acetaminophen IV 1 GM/100ML 1,000 MG/100 ML BAG IV PRN (10:53)
[2022-03-29] MEDS: NS 0.9% 1000 ml BAG 1,000 ML IV SCH (12:26)
[2022-03-29] MEDS: Prochlorperazine 5 mg/ml 2 ml VIAL (10 mg) IV PRN ×2 (14:06→20:31)
[2022-03-29] MEDS: Fluticasone NASAL SPRAY 50MCG 16 gm SPRAY BTL BOTH NARES SCH (15:21)
[2022-03-29] MEDS: ceFAZolin 2 GM in NS PREMIX 2 GM/100 ML BAG IVPB SCH (15:26)
[2022-03-30] MEDS: NS 0.9% 1000 ml BAG 1,000 ML IV SCH (00:26)
[2022-03-30] MEDS: ceFAZolin 2 GM in NS PREMIX 2 GM/100 ML BAG IVPB SCH ×4 (00:27→23:47)
[2022-03-30] MEDS: HYDROmorphone 0.5 MG/0.5 ML SYRINGE IV SLOW PU PRN ×6 (00:36→23:40)
[2022-03-30] MEDS: Prochlorperazine 5 mg/ml 2 ml VIAL (10 mg) IV PRN ×2 (06:05→14:34)
[2022-03-30 08:33] LABS: ABS Lymphocytes 1.4 10^3/ul (1.0-4.8); ABS Monocytes 1.1 10^3/ul (0-0.8); ABS Neutrophils 7.2 10^3/ul (1.5-7.7); Eosinophil % 0.5 %; Hematocrit 34 % (42-52); Hemoglobin 11.5 g/dL (14.0-18.0); Lymphocyte % 14.5 %; Mean Corpuscular HGB Conc 34 g/dL (31-36); Mean Corpuscular Hemoglobin 31 pg (27-31); Mean Corpuscular Volume 90 fL (80-94); Mean Platelet Volume 8.3 fL (7.4-10.4); Platelet Count 206 10^3/uL (150-450); Red Blood Count 3.73 10^6 /uL (4.18-5.48); Red Cell Distribution Width 13 % (10-15); White Blood Count 9.7 10^3/uL (3.5-10.8)
[2022-03-30 08:48] LABS: Calcium 7.7 mg/dL (8.6-10.3); Potassium 3.2 mmol/L (3.5-5.0); eGFR CKD-EPI 98.7 (>60)
[2022-03-30] MEDS: Acetaminophen IV 1 GM/100ML 1,000 MG/100 ML BAG IV PRN ×2 (09:06→20:38)
[2022-03-30] MEDS: Fluticasone NASAL SPRAY 50MCG 16 gm SPRAY BTL BOTH NARES SCH (09:06)
[2022-03-30] MEDS: Ondansetron 4 mg VIAL 2 MG/ML 2 ml VIAL IV PRN ×3 (10:13→23:40)
[2022-03-30] MEDS ORDERED: Potassium Chlor 20 meq TAB.ER PO ONE (15:22)
[2022-03-31] MEDS: Ondansetron 4 mg VIAL 2 MG/ML 2 ml VIAL IV PRN ×3 (04:56→22:26)
[2022-03-31] MEDS: HYDROmorphone 0.5 MG/0.5 ML SYRINGE IV SLOW PU PRN ×2 (04:56→08:59)
[2022-03-31 06:07] LABS: ABS Basophils 0.1 10^3/ul (0-0.2); ABS Eosinophils 0.1 10^3/ul (0-0.6); ABS Lymphocytes 1.6 10^3/ul (1.0-4.8); ABS Neutrophils 5.5 10^3/ul (1.5-7.7); Eosinophil % 0.9 %; Hematocrit 31 % (42-52); Hemoglobin 10.9 g/dL (14.0-18.0); Lymphocyte % 18.9 %; Mean Corpuscular HGB Conc 35 g/dL (31-36); Mean Corpuscular Hemoglobin 31 pg (27-31); Mean Corpuscular Volume 90 fL (80-94); Mean Platelet Volume 7.5 fL (7.4-10.4); Platelet Count 213 10^3/uL (150-450); Red Blood Count 3.49 10^6 /uL (4.18-5.48); Red Cell Distribution Width 13 % (10-15); White Blood Count 8.2 10^3/uL (3.5-10.8)
[2022-03-31] MEDS: ceFAZolin 2 GM in NS PREMIX 2 GM/100 ML BAG IVPB SCH ×3 (06:29→23:39)
[2022-03-31 06:51] LABS: Calcium 7.7 mg/dL (8.6-10.3); Potassium 3.4 mmol/L (3.5-5.0)
[2022-03-31] MEDS ORDERED: Potassium Chlor 20 meq TAB.ER PO ONE (07:17)
[2022-03-31] MEDS: Fluticasone NASAL SPRAY 50MCG 16 gm SPRAY BTL BOTH NARES SCH (08:14)
[2022-03-31] MEDS: Acetaminophen IV 1 GM/100ML 1,000 MG/100 ML BAG IV PRN (08:18)
[2022-04-01 04:56] LABS: ABS Basophils 0.1 10^3/ul (0-0.2); ABS Eosinophils 0.2 10^3/ul (0-0.6); ABS Lymphocytes 2.6 10^3/ul (1.0-4.8); ABS Neutrophils 4.9 10^3/ul (1.5-7.7); Eosinophil % 1.9 %; Hematocrit 34 % (42-52); Hemoglobin 11.3 g/dL (14.0-18.0); Lymphocyte % 30.1 %; Mean Corpuscular HGB Conc 34 g/dL (31-36); Mean Corpuscular Hemoglobin 30 pg (27-31); Mean Corpuscular Volume 90 fL (80-94); Nucleated Red Blood Cells % 0.1; Platelet Count 262 10^3/uL (150-450); Red Blood Count 3.71 10^6 /uL (4.18-5.48); Red Cell Distribution Width 13 % (10-15); White Blood Count 8.7 10^3/uL (3.5-10.8)
[2022-04-01 05:43] LABS: Calcium 8.1 mg/dL (8.6-10.3); Potassium 3.5 mmol/L (3.5-5.0); eGFR CKD-EPI 92.3 (>60)
[2022-04-01] MEDS ORDERED: Potassium Chlor 20 meq TAB.ER PO ONE (07:09)
[2022-04-01] MEDS: ceFAZolin 2 GM in NS PREMIX 2 GM/100 ML BAG IVPB SCH ×3 (07:24→23:12)
[2022-04-01] MEDS: Fluticasone NASAL SPRAY 50MCG 16 gm SPRAY BTL BOTH NARES SCH (08:44)
[2022-04-02] MEDS: ceFAZolin 2 GM in NS PREMIX 2 GM/100 ML BAG IVPB SCH ×2 (07:45→15:24)
[2022-04-02] MEDS: Fluticasone NASAL SPRAY 50MCG 16 gm SPRAY BTL BOTH NARES SCH (07:50)
[2022-04-02 10:29] LABS: ABS Eosinophils 0.2 10^3/ul (0-0.6); ABS Lymphocytes 1.9 10^3/ul (1.0-4.8); ABS Monocytes 0.7 10^3/ul (0-0.8); ABS Neutrophils 5.5 10^3/ul (1.5-7.7); Eosinophil % 2.4 %; Hematocrit 32 % (42-52); Hemoglobin 11.2 g/dL (14.0-18.0); Lymphocyte % 22.3 %; Mean Corpuscular HGB Conc 35 g/dL (31-36); Mean Corpuscular Hemoglobin 32 pg (27-31); Mean Corpuscular Volume 91 fL (80-94); Mean Platelet Volume 7.6 fL (7.4-10.4); Platelet Count 297 10^3/uL (150-450); Red Blood Count 3.56 10^6 /uL (4.18-5.48); Red Cell Distribution Width 13 % (10-15); White Blood Count 8.3 10^3/uL (3.5-10.8)
[2022-04-02 11:06] LABS: Calcium 8.1 mg/dL (8.6-10.3); Potassium 3.9 mmol/L (3.5-5.0)
[2022-04-03] MEDS: ceFAZolin 2 GM in NS PREMIX 2 GM/100 ML BAG IVPB SCH ×3 (00:12→14:55)
[2022-04-03 06:13] LABS: ABS Basophils 0.1 10^3/ul (0-0.2); ABS Eosinophils 0.3 10^3/ul (0-0.6); ABS Lymphocytes 2.2 10^3/ul (1.0-4.8); ABS Monocytes 0.8 10^3/ul (0-0.8); ABS Neutrophils 5.1 10^3/ul (1.5-7.7); Eosinophil % 3.4 %; Hematocrit 33 % (42-52); Hemoglobin 11.5 g/dL (14.0-18.0); Lymphocyte % 25.9 %; Mean Corpuscular HGB Conc 35 g/dL (31-36); Mean Corpuscular Hemoglobin 32 pg (27-31); Mean Corpuscular Volume 91 fL (80-94); Mean Platelet Volume 7.5 fL (7.4-10.4); Platelet Count 335 10^3/uL (150-450); Red Blood Count 3.61 10^6 /uL (4.18-5.48); Red Cell Distribution Width 13 % (10-15); White Blood Count 8.5 10^3/uL (3.5-10.8)
[2022-04-03 06:40] LABS: Potassium 4.1 mmol/L (3.5-5.0)
[2022-04-03 06:46] LABS: eGFR CKD-EPI 88.8 (>60)
[2022-04-03] MEDS: Fluticasone NASAL SPRAY 50MCG 16 gm SPRAY BTL BOTH NARES SCH (09:26)
[2022-04-03 15:40] VITALS: BP 138/71
== END 2022-04-03 17:40 | disposition home health service (06) | DRG 721 ==
LOC: EDHOLD 08:23 → ED 08:23 → SUATTDRO 12:22 → OBSVTOIN 12:22 → EDHOLD 14:23 → SSU 14:32
PROVIDERS: ADMIT Internal Medicine; ATTEND Internal Medicine

== ENCOUNTER 2022-04-12 17:54 | Inpatient (IN) ==
[2022-04-12 20:14] LABS: ABS Basophils 0.1 10^3/ul (0-0.2); ABS Eosinophils 0.1 10^3/ul (0-0.6); ABS Lymphocytes 1.7 10^3/ul (1.0-4.8); ABS Monocytes 0.7 10^3/ul (0-0.8); ABS Neutrophils 4.7 10^3/ul (1.5-7.7); Eosinophil % 1.1 %; Hematocrit 36 % (42-52); Hemoglobin 12.3 g/dL (14.0-18.0); Lymphocyte % 23.3 %; Mean Corpuscular HGB Conc 34 g/dL (31-36); Mean Corpuscular Hemoglobin 31 pg (27-31); Mean Corpuscular Volume 91 fL (80-94); Platelet Count 336 10^3/uL (150-450); Red Cell Distribution Width 13 % (10-15); White Blood Count 7.2 10^3/uL (3.5-10.8)
[2022-04-12 20:23] LABS: Activated Partial Thrombo Time 29.1 seconds (26.0-38.0); INR 1.03 (0.89-1.11)
[2022-04-12] MEDS ORDERED: Morphine 4 MG/ML VIAL (1 ml) IV ONE (20:36)
[2022-04-12 20:48] LABS: ALT 5 U/L (7-52); AST 22 U/L (13-39); Albumin 3.9 g/dL (3.2-5.2); Albumin/Globulin Ratio 1.3 (1-3); Alkaline Phosphatase 42 U/L (35-149); Anion Gap 8 mmol/L (2-11); Blood Urea Nitrogen 12 mg/dL (6-24); C Reactive Protein 2.02 mg/L (<8.01); CO2 Carbon Dioxide 27 mmol/L (22-32); Chloride 104 mmol/L (101-111); Globulin 3.1 g/dL (2-4); Glucose 111 mg/dL (70-100); Potassium 4.2 mmol/L (3.5-5.0); Sodium 139 mmol/L (135-145); eGFR CKD-EPI 86.6 (>60)
[2022-04-12] MEDS ORDERED: Piperacillin/Tazobac ADVAN 3.375 GM in NS 0.9% 100 ml BAG 100 ML IV ONE (21:16)
[2022-04-12] MEDS ORDERED: Vancomycin 1,000 MG in NS 0.9% 250 ml 250 ML IVPB ONE (21:16)
[2022-04-12 21:19] LABS: High Sens Troponin Baseline < 3 pg/mL (<20)
[2022-04-12 21:58] LABS: Urine Appearance Clear; Urine Bilirubin Negative (Negative); Urine Blood Negative (Negative); Urine Color Yellow; Urine Glucose Negative (Negative); Urine Ketones Negative (Negative); Urine Nitrite Negative (Negative); Urine Protein Negative (Negative); Urine Specific Gravity 1.008 (1.002-1.030); Urine Urobilinogen Negative (Negative)
[2022-04-12] MEDS ORDERED: Ondansetron 4 mg VIAL 2 MG/ML 2 ml VIAL IV ONE (22:05)
[2022-04-12 22:17] LABS: High Sensitivity Troponin 1 Hr < 3 pg/mL (<20)
[2022-04-13] MEDS ORDERED: NS 0.9% 1000 ml BAG 1,000 ML IV SCH (01:30)
[2022-04-13] MEDS ORDERED: Zosyn per Pharmacy NOTE FOLLOW UP SCH (02:00)
[2022-04-13] MEDS ORDERED: Linezolid 600 MG IVPREMIX(*) 600 MG/300 ML BAG IVPB SCH ×2 (02:00→10:00)
[2022-04-13] MEDS ORDERED: ZOSYN 3.375 GM Q8H per EXTENDED INFUSION IV SCH ×2 (02:00→14:00)
[2022-04-13] MEDS ORDERED: Acetaminophen IV 1 GM/100ML 1,000 MG/100 ML BAG IV PRN (02:07)
[2022-04-13] MEDS: Ondansetron 4 mg VIAL 2 MG/ML 2 ml VIAL IV PRN ×2 (03:12→08:48)
[2022-04-13 04:42] LABS: ABS Basophils 0.1 10^3/ul (0-0.2); ABS Eosinophils 0.2 10^3/ul (0-0.6); ABS Monocytes 0.7 10^3/ul (0-0.8); ABS Neutrophils 4.4 10^3/ul (1.5-7.7); Eosinophil % 2.1 %; Hematocrit 35 % (42-52); Hemoglobin 11.8 g/dL (14.0-18.0); Lymphocyte % 27.2 %; Mean Corpuscular HGB Conc 34 g/dL (31-36); Mean Corpuscular Hemoglobin 31 pg (27-31); Mean Corpuscular Volume 92 fL (80-94); Mean Platelet Volume 7.2 fL (7.4-10.4); Platelet Count 286 10^3/uL (150-450); Red Blood Count 3.81 10^6 /uL (4.18-5.48); Red Cell Distribution Width 13 % (10-15); White Blood Count 7.3 10^3/uL (3.5-10.8)
[2022-04-13 05:11] LABS: Albumin 3.5 g/dL (3.2-5.2); Albumin/Globulin Ratio 1.2 (1-3); Calcium 8.6 mg/dL (8.6-10.3); Globulin 2.9 g/dL (2-4); Potassium 4.2 mmol/L (3.5-5.0); Total Bilirubin 0.5 mg/dL (0.2-1.0); Total Protein 6.4 g/dL (6.4-8.9); eGFR CKD-EPI 92.3 (>60)
[2022-04-13] MEDS ORDERED: Prochlorperazine 5 mg/ml 2 ml VIAL (10 mg) IV PRN (11:02)
[2022-04-13] MEDS: Oxacillin 2 GM in NS 0.9% 100 ml BAG 100 ML IVPB SCH ×4 (11:28→22:20)
[2022-04-13] MEDS ORDERED: Gelfoam Sponge SIZE 100 SPONGE ONE (12:57)
[2022-04-13] MEDS ORDERED: ceFAZolin VIAL VIAL ONE (12:57)
[2022-04-13] MEDS ORDERED: Lidocaine 1% VIAL 10 MG/ML VIAL 30 ML ONE (12:57)
[2022-04-13] MEDS ORDERED: Thrombin 5,000 UNITS 1 APPLIC KIT - topical use - TOPICAL ONE (12:57)
[2022-04-13] MEDS ORDERED: Lidocaine 2% w EPI 1:100,000 20 ML MDV VIAL ONE (12:57)
[2022-04-13] MEDS ORDERED: fentaNYL 250 mcg/5 ml 50 MCG/ML 5 ml VIAL (250 MCG) ONE (13:16)
[2022-04-13] MEDS ORDERED: Midazolam 2 mg/2 ml VIAL 1 mg/ml 2 ml VIAL (2 mg) ONE (13:16)
[2022-04-13] MEDS ORDERED: Rocuronium 50 mg VIAL 10 mg/ml 5 ml VIAL (50 mg) ONE (13:16)
[2022-04-13] MEDS ORDERED: Ondansetron 4 mg VIAL 2 MG/ML 2 ml VIAL ONE (13:18)
[2022-04-13] MEDS ORDERED: Lidocaine 2% PF 5 ML VIAL ONE (13:18)
[2022-04-13] MEDS ORDERED: Dexamethasone IV 4 MG/ML VIAL 1 ml VIAL ONE (13:18)
[2022-04-13] MEDS ORDERED: Propofol 10 MG/ML 20 ML BTL ONE (13:18)
[2022-04-13] MEDS ORDERED: Sevoflurane BOTTLE ONE (13:18)
[2022-04-13] MEDS ORDERED: Metoclopramide 5 MG/ML VIAL (10 mg) ONE (14:07)
[2022-04-13] MEDS ORDERED: Famotidine IV 10 MG/ML 2 ml VIAL (20 mg) ONE (14:21)
[2022-04-13] MEDS ORDERED: Acetaminophen IV 1 GM/100ML 1,000 MG/100 ML BAG IV ONE (14:59)
[2022-04-13] MEDS: Acetaminophen IV 1 GM/100ML 1,000 MG/100 ML BAG IV PRN (15:00)
[2022-04-14] MEDS: Oxacillin 2 GM in NS 0.9% 100 ml BAG 100 ML IVPB SCH ×6 (02:18→21:51)
[2022-04-14] MEDS: Acetaminophen IV 1 GM/100ML 1,000 MG/100 ML BAG IV PRN (03:18)
[2022-04-14 06:13] LABS: ABS Eosinophils 0.1 10^3/ul (0-0.6); ABS Lymphocytes 2.5 10^3/ul (1.0-4.8); ABS Monocytes 0.8 10^3/ul (0-0.8); ABS Neutrophils 6.1 10^3/ul (1.5-7.7); Eosinophil % 0.6 %; Hematocrit 34 % (42-52); Hemoglobin 11.4 g/dL (14.0-18.0); Lymphocyte % 26.1 %; Mean Corpuscular HGB Conc 33 g/dL (31-36); Mean Corpuscular Hemoglobin 31 pg (27-31); Mean Corpuscular Volume 92 fL (80-94); Mean Platelet Volume 7.7 fL (7.4-10.4); Platelet Count 296 10^3/uL (150-450); Red Blood Count 3.72 10^6 /uL (4.18-5.48); Red Cell Distribution Width 13 % (10-15); White Blood Count 9.6 10^3/uL (3.5-10.8)
[2022-04-14] MEDS: Ondansetron 4 mg VIAL 2 MG/ML 2 ml VIAL IV PRN (08:44)
[2022-04-14] MEDS ORDERED: Morphine 2 MG/ML SYRINGE IV ONE (17:26)
[2022-04-14] MEDS: Polyethylene Glycol 3350 17 GM PACKET PO SCH (17:49)
[2022-04-14] MEDS: Heparin 5000 UNITS/ML 1 mL VIAL SUBCUT SCH (21:39)
[2022-04-15] MEDS: Oxacillin 2 GM in NS 0.9% 100 ml BAG 100 ML IVPB SCH ×6 (02:30→23:24)
[2022-04-15] MEDS: Ondansetron 4 mg VIAL 2 MG/ML 2 ml VIAL IV PRN ×2 (06:20→20:32)
[2022-04-15] MEDS: Heparin 5000 UNITS/ML 1 mL VIAL SUBCUT SCH ×3 (06:24→23:24)
[2022-04-15 06:50] LABS: ABS Basophils 0.1 10^3/ul (0-0.2); ABS Eosinophils 0.1 10^3/ul (0-0.6); ABS Lymphocytes 2.3 10^3/ul (1.0-4.8); ABS Monocytes 0.7 10^3/ul (0-0.8); ABS Neutrophils 4.1 10^3/ul (1.5-7.7); Eosinophil % 1.7 %; Hematocrit 33 % (42-52); Hemoglobin 11.3 g/dL (14.0-18.0); Lymphocyte % 31.9 %; Mean Corpuscular HGB Conc 34 g/dL (31-36); Mean Corpuscular Hemoglobin 31 pg (27-31); Mean Corpuscular Volume 91 fL (80-94); Mean Platelet Volume 7.4 fL (7.4-10.4); Platelet Count 254 10^3/uL (150-450); Red Blood Count 3.62 10^6 /uL (4.18-5.48); Red Cell Distribution Width 13 % (10-15); White Blood Count 7.3 10^3/uL (3.5-10.8)
[2022-04-15] MEDS: Polyethylene Glycol 3350 17 GM PACKET PO SCH (08:49)
[2022-04-16] MEDS: Oxacillin 2 GM in NS 0.9% 100 ml BAG 100 ML IVPB SCH ×4 (03:00→14:25)
[2022-04-16] MEDS: Heparin 5000 UNITS/ML 1 mL VIAL SUBCUT SCH ×2 (05:39→14:26)
[2022-04-16 06:43] LABS: ABS Basophils 0.1 10^3/ul (0-0.2); ABS Eosinophils 0.2 10^3/ul (0-0.6); ABS Lymphocytes 2.6 10^3/ul (1.0-4.8); ABS Monocytes 0.7 10^3/ul (0-0.8); ABS Neutrophils 2.5 10^3/ul (1.5-7.7); Eosinophil % 3.1 %; Hematocrit 36 % (42-52); Lymphocyte % 43.3 %; Mean Corpuscular HGB Conc 34 g/dL (31-36); Mean Corpuscular Hemoglobin 31 pg (27-31); Mean Corpuscular Volume 91 fL (80-94); Nucleated Red Blood Cells % 0.1; Platelet Count 264 10^3/uL (150-450); Red Blood Count 3.91 10^6 /uL (4.18-5.48); Red Cell Distribution Width 13 % (10-15); White Blood Count 6.1 10^3/uL (3.5-10.8)
[2022-04-16 07:03] LABS: Calcium 8.5 mg/dL (8.6-10.3); eGFR CKD-EPI 91.1 (>60)
[2022-04-16] MEDS: Polyethylene Glycol 3350 17 GM PACKET PO SCH (10:20)
[2022-04-16 11:39] VITALS: BP 160/89
== END 2022-04-16 15:30 | disposition home or self-care (01) | DRG 721 ==
LOC: ED 17:54 → EDHOLD 04-13 01:19 → SUATTDRO 04-13 01:19 → MED 04-13 07:31 → SSU 04-13 16:12
PROVIDERS: ADMIT Hospitalist; ATTEND Internal Medicine
PROC: O.NEI&D (2022-04-13 14:15)